=== PATIENT | male | born 1945 | race Caucasian/White ===

== ENCOUNTER → 2017-04-26 14:24 | Outpatient (CLI) | payer MEDICARE, SELFPAY ==
[2017-04-25 13:25] LABS: Absolute Lymphocyte Count 1.16 X10^3/ul (0.83-4.51); Absolute Neutrophil Count 5.2 X10^3/uL (2.0-7.7); Basophil# 0.03 X10^3/uL; Basophil% 0.4 % (0-1); Eosinophil# 0.09 X10^3/uL; Eosinophils% 1.3 % (0-5); Hematocrit 40.8 % (40-54); Hemoglobin 13.8 g/dl (13.0-16.5); Lymphocyte # 1.16 X10^3/ul (4.0); Lymphocyte % 16.9 % (19-41); Mean Corp Hgb Conc 33.8 g/gl (32-36); Mean Corpuscular Hgb 29.9 pg (27.0-32.0); Mean Corpuscular Volume 88.3 fL (80-94); Monocyte# 0.43 X10^3/uL; Monocyte% 6.3 % (0-10); Neutrophil # 5.16 X10^3/uL (2.7-7.7); Platelet Count 203 K/mm3 (150-450); RBC Distribution Width CV 13.2 % (11.6-14.6); Red Blood Count 4.62 M/mm3 (4.6-6.2); White Blood Count 6.9 K/mm3 (4.4-11.0)
[2017-04-25 13:26] LABS: POSITIVE COUNT NO; POSITIVE DIFFERENTIAL NO; POSITIVE MORPHOLOGY NO
[2017-04-25 13:45] LABS: Creatinine, Serum 0.98 mg/dL (0.70-1.30); EST Glomerular Filtration Rate 80 mL/min (>60); Est Glom Filt Rate - Afr Amer 96 mL/min (>60)
--- NOTE | 2017-04-26 14:25 | CT_ITS ---
STUDY: CT PELVIS WITH CONTRAST REASON FOR EXAM: Male, 72 years old. The patient has a history of prostate cancer. This is a radiation treatment planning examination. RADIATION DOSAGE (If Supplied By Facility): CTDIvol = ( 24.61 ) mGy, DLP = ( 887.00 ) mGycm TECHNIQUE: Transaxial imaging of the pelvis was performed with oral contrast. 100 ml of Isovue 300 contrast was administered intravenously. Individualized dose optimization techniques were used for this CT. COMPARISON: Comparison is made with prior study dated November 26, 2016. FINDINGS: Normal urinary bladder. The patient is status post prostatectomy. Metallic radiation seeds are seen within the prostate bed. Normal visualized small intestine. There are multiple colonic diverticula of the sigmoid colon consistent with chronic diverticulosis. There is no pelvic fluid. There is no pelvic lymphadenopathy or mass lesion. There is diffuse atherosclerotic calcification of the pelvic arteries. There is a left inguinal hernia containing fat. There are diffuse degenerative changes of the visualized lumbar spine. CT/Pelvis WITH IV Contrast IMPRESSION: Status post prostatectomy. Metallic radiation seeds are seen within the prostate bed. Electronically Signed: Aries Conklin MD at 10:46 EDT Tel [phone], Service support ,
== END ==
PROVIDERS: Visit Provider Radiology Radiation Oncology
DX: Z01.818 Encounter for other preprocedural examination (principal); C61 Malignant neoplasm of prostate
CPT/HCPCS: 36415; 72193; 82565; 85025; Q9967

== ENCOUNTER → 2017-05-12 09:45 | Outpatient (CLI) | payer MEDICARE, SELFPAY ==
[2017-05-12 12:11] LABS: Absolute Lymphocyte Count 0.68 X10^3/ul (0.83-4.51); Absolute Neutrophil Count 4.4 X10^3/uL (2.0-7.7); Basophil# 0.01 X10^3/uL; Basophil% 0.2 % (0-1); Eosinophil# 0.05 X10^3/uL; Eosinophils% 0.9 % (0-5); Hematocrit 39.8 % (40-54); Hemoglobin 13.5 g/dl (13.0-16.5); Lymphocyte # 0.68 X10^3/ul (4.0); Lymphocyte % 12.1 % (19-41); Mean Corp Hgb Conc 33.9 g/gl (32-36); Mean Corpuscular Volume 88.4 fL (80-94); Mean Platelet Vol. 10.8 fl (6.2-12.0); Monocyte# 0.49 X10^3/uL; Monocyte% 8.7 % (0-10); Neutrophil # 4.39 X10^3/uL (2.7-7.7); Neutrophil % 77.7 % (47-70); Platelet Count 191 K/mm3 (150-450); RBC Distribution Width CV 13.3 % (11.6-14.6); RBC Distribution Width SD 42.1 fl (35.1-43.9); White Blood Count 5.6 K/mm3 (4.4-11.0)
[2017-05-12 12:16] LABS: POSITIVE COUNT NO; POSITIVE DIFFERENTIAL NO; POSITIVE MORPHOLOGY NO
== END ==
PROVIDERS: Visit Provider Radiology Radiation Oncology
DX: C61 Malignant neoplasm of prostate (principal)
CPT/HCPCS: 36415; 85025

== ENCOUNTER → 2017-06-02 09:52 | Outpatient (CLI) | payer MEDICARE, SELFPAY ==
[2017-06-02 12:24] LABS: Absolute Lymphocyte Count 0.41 X10^3/ul (0.83-4.51); Absolute Neutrophil Count 4.9 X10^3/uL (2.0-7.7); Basophil# 0.01 X10^3/uL; Basophil% 0.2 % (0-1); Eosinophil# 0.07 X10^3/uL; Eosinophils% 1.2 % (0-5); Hematocrit 39.1 % (40-54); Hemoglobin 13.3 g/dl (13.0-16.5); Lymphocyte # 0.41 X10^3/ul (4.0); Lymphocyte % 6.9 % (19-41); Mean Corpuscular Hgb 30.4 pg (27.0-32.0); Mean Corpuscular Volume 89.3 fL (80-94); Mean Platelet Vol. 10.1 fl (6.2-12.0); Monocyte# 0.51 X10^3/uL; Monocyte% 8.6 % (0-10); Neutrophil # 4.94 X10^3/uL (2.7-7.7); Neutrophil % 82.8 % (47-70); Platelet Count 182 K/mm3 (150-450); RBC Distribution Width CV 13.9 % (11.6-14.6); RBC Distribution Width SD 44.5 fl (35.1-43.9); Red Blood Count 4.38 M/mm3 (4.6-6.2)
[2017-06-02 12:33] LABS: Differential Indicated SCAN CRITERIA MET; POSITIVE COUNT NO; POSITIVE DIFFERENTIAL YES; POSITIVE MORPHOLOGY NO
[2017-06-02 12:51] LABS: ALB/GLOB Ratio 1.2 RATIO (0.9-2.4); AST(SGOT) 20 U/L (15-37); Alanine Aminotransfer ALT/SGPT 36 U/L (16-61); Albumin, Serum 4.2 g/dL (3.2-5.0); Alkaline Phosphatase 56 U/L (45-117); Anion Gap 8 (5-15); BUN 13 mg/dL (7-18); BUN/Creat Ratio 13.7 RATIO (10-20); Calcium,Total 9.2 mg/dL (8.5-10.1); Chloride 103 mmol/L (98-107); Creatinine, Serum 0.95 mg/dL (0.70-1.30); EST Glomerular Filtration Rate 83 mL/min (>60); Est Glom Filt Rate - Afr Amer 101 mL/min (>60); Globulin 3.5 g/dL (2.2-4.2); Glucose 112 mg/dL (74-106); PSA,Total- Diagnostic < 0.01 ng/mL (0.0-4.0); Potassium 4.6 mmol/L (3.5-5.1); Protein, Total 7.7 g/dL (6.4-8.2); Sodium Level 139 mmol/L (136-145)
== END ==
PROVIDERS: Internal Medicine Medical Oncology; Visit Provider Radiology Radiation Oncology
DX: C61 Malignant neoplasm of prostate (principal)
CPT/HCPCS: 36415; 80053; 84153; 85025

== ENCOUNTER → 2018-05-31 09:21 | Outpatient (CLI) | payer MEDICARE, SELFPAY ==
[2016-11-30 13:50] VITALS: BMI 25.0
[2018-05-31 12:33] LABS: PSA,Total- Diagnostic < 0.01 ng/mL (0.0-4.0)
== END ==
PROVIDERS: Referring Provider Urology; Visit Provider Urology
DX: C61 Malignant neoplasm of prostate (principal)
CPT/HCPCS: 36415; 84153

== ENCOUNTER → 2018-11-28 10:05 | Outpatient (CLI) | payer MEDICARE, SELFPAY ==
[2016-11-30 13:50] VITALS: BMI 25.0
[2018-11-28 12:59] LABS: PSA,Total- Diagnostic < 0.01 ng/mL (0.0-4.0)
== END ==
PROVIDERS: Referring Provider Urology; Visit Provider Urology
DX: C61 Malignant neoplasm of prostate (principal)
CPT/HCPCS: 36415; 84153

== ENCOUNTER → 2019-06-05 12:42 | Outpatient (CLI) | payer MEDICARE, SELFPAY ==
[2019-06-05 15:28] LABS: PSA,Total- Diagnostic < 0.01 ng/mL (0.0-4.0)
== END ==
PROVIDERS: Referring Provider Urology; Visit Provider Urology
DX: C61 Malignant neoplasm of prostate (principal); R97.20 Elevated prostate specific antigen [PSA]
CPT/HCPCS: 36415; 84153

== ENCOUNTER → 2019-10-01 08:28 | Outpatient (CLI) | payer MEDICARE, SELFPAY ==
[2019-10-01 08:21] VITALS: BMI 25.0
--- NOTE | 2019-10-01 08:29 | RAD_ITS ---
STUDY: X-RAY - LUMBAR SPINE REASON FOR EXAM: Male, 74 years old. LOW BACK PAIN TECHNIQUE: 4 view(s) of the lumbar spine were obtained. COMPARISON: None FINDINGS: Normal lumbar lordosis. Mild levoscoliosis. There is a normal alignment of the vertebrae. No subluxation on the flexion or extension views to suggest instability. There is multilevel endplate spondylosis of the lumbar vertebrae. There is multi-level degenerative disc disease with multi-level disc space narrowing. The soft tissue structures are unremarkable. RAD/L/S Spine Min 4 Views IMPRESSION: 1. Mild levoscoliosis with diffuse degenerative disc disease. 2. No instability. Electronically Signed: Gamaliel Mercado MD at 17:22 EDT Tel , Service support ,
--- NOTE | 2019-10-01 09:09 | RAD_ITS ---
STUDY: X-RAY - PELVIS AND LEFT HIP REASON FOR EXAM: Male, 74 years old. LOW BACK AND HIP PAIN TECHNIQUE: 3 views of the pelvis and hip. COMPARISON: None. FINDINGS: There is a non-specific bowel gas pattern. Normal visualized soft tissue structures. Normal bilateral iliac wings, sacroiliac joints and visualized sacrum. Normal bilateral superior and inferior pubic rami. Normal pubic symphysis. Normal bilateral ischial tuberosities. There are osteoarthritic changes of the femoral head with marginal osteophyte formation. Normal acetabulum. There is mild articular joint space narrowing of the hip. RAD/HIP, UNI W/ Pelvis 2-3 Views IMPRESSION: Mild arthrosis Electronically Signed: Gamaliel Mercado MD at 17:18 EDT Tel , Service support ,
== END ==
PROVIDERS: Referring Provider Orthopaedic Surgery; Visit Provider Orthopaedic Surgery
DX: M79.605 Pain in left leg (principal)
CPT/HCPCS: 72110; 73502

== ENCOUNTER → 2020-02-11 09:05 | Outpatient (CLI) | payer MEDICARE, SELFPAY ==
[2019-10-17 09:26] VITALS: BMI 25.0
[2020-02-11 10:51] LABS: PSA,Total- Diagnostic < 0.01 ng/mL (0.0-4.0)
== END ==
PROVIDERS: PCP Family Medicine; Referring Provider Urology; Visit Provider Urology
DX: C61 Malignant neoplasm of prostate (principal)
CPT/HCPCS: 36415; 84153

== ENCOUNTER 2020-04-14 08:42 | Outpatient (RCR) | payer MEDICARE, SELFPAY ==
[2019-10-17 09:26] VITALS: BMI 25.0
[2020-04-14] MEDS: COVID-19 VACC, MRNA(PFIZER)/PF 30 MCG/0.3 ML SYRINGE IM (13:08)
[2020-05-06] MEDS: COVID-19 VACC, MRNA(PFIZER)/PF 30 MCG/0.3 ML SYRINGE IM (12:42)
== END 2020-07-15 23:59 ==
LOC: IMMUN 08:42
PROVIDERS: PCP Family Medicine; Visit Provider Family Medicine
DX: Z23 Encounter for immunization (principal)
CPT/HCPCS: 0001A; 0002A; 91300

== ENCOUNTER → 2020-07-31 14:17 | Outpatient (CLI) | payer MEDICARE, SELFPAY ==
[2019-10-17 09:26] VITALS: BMI 25.0
[2020-07-31 18:05] LABS: PSA,Total- Diagnostic < 0.01 ng/mL (0.0-4.0)
== END ==
PROVIDERS: PCP Family Medicine; Referring Provider Urology; Visit Provider Urology
DX: C61 Malignant neoplasm of prostate (principal)
CPT/HCPCS: 36415; 84153

== ENCOUNTER → 2020-08-12 06:17 | Outpatient (CLI) | payer MEDICARE, SELFPAY ==
[2020-07-31 15:23] VITALS: BMI 26.5
--- NOTE | 2020-08-12 06:24 | ECHOCS_ITS ---
Reason For Study: HTN, ELEVATED CALCIUM SCORE Procedure This was a 2D Doppler, Color Flow transthoracic echocardiogram. The study was technically difficult. Contrast injection was performed. Exam performed in department. Left Ventricle Normal LV size. Left ventricular systolic function is normal. The estimated ejection fraction is 60 %. Diastolic function is indeterminate. No regional wall motion abnormalities noted. Right Ventricle Normal RV size. Normal systolic function. Atria The left atrium is mildly enlarged. Normal right atrium. No doppler evidence for ASD. Mitral Valve There is no mitral annular calcification. Normal mitral valve. Mild (1+) mitral valve insufficiency. Tricuspid Valve Normal tricuspid valve. Mild tricuspid valve insufficiency. Right ventricular systolic pressure estimated to be 34 mmHg. Aortic Valve Trisinus/trileaflet aortic valve. Mild diffuse aortic valve thickening. Pulmonic Valve The pulmonic valve is not well visualized. Great Vessels Normal sized aortic root. Calcified aortic root. Pericardium/Pleural No pericardial effusion. Medication Diluted definity 3ml given slow IV push to enhance endocardial definition. MMode/2D Measurements & Calculations LVIDd: 4.3 cm IVSd: 0.93 cm Ao root diam: 3.7 cm LVIDs: 3.1 cm LVPWd: 1.0 cm RVDd: 3.4 cm FS: 26.9 % LAV(MOD-bp): 76.6 ml LVAd ap4: 35.4 cm2 LVAd ap2: 28.6 cm2 LAV(MOD-bp) Indexed: 38.9 ml/m2 LVLd ap4: 9.2 cm LVLd ap2: 7.8 cm LAV(MOD-sp2): 88.8 ml EDV(MOD-sp4): 109.2 ml EDV(MOD-sp2): 88.5 ml LAV(MOD-sp4): 58.7 ml EDV(sp4-el): 115.0 ml EDV(sp2-el): 89.0 ml LVAs ap4: 23.6 cm2 LVAs ap2: 16.9 cm2 LVLs ap4: 8.0 cm LVLs ap2: 6.8 cm ESV(MOD-sp4): 57.5 ml ESV(MOD-sp2): 35.2 ml ESV(sp4-el): 58.5 ml ESV(sp2-el): 35.3 ml EF(MOD-sp4): 47.3 % EF(MOD-sp2): 60.2 % EF(sp4-el): 49.1 % SV(MOD-sp4): 51.7 ml SV(MOD-sp2): 53.3 ml SV(sp4-el): 56.4 ml LA A4 area: 21.7 cm2 LA dimension(2D): 4.3 cm RA A4 area: 18.1 cm2 Time Measurements MV dec time: 0.37 sec Doppler Measurements & Calculations MV E max pro: 52.5 cm/sec Lat Peak E' Pro: 9.5 cm/sec Med Peak E' Pro: 7.6 cm/sec MV A max pro: 73.8 cm/sec E/E' lat: 5.5 E/E' med: 6.9 MV E/A: 0.71 Ao V2 max: 108.9 cm/sec LV V1 max: 94.7 cm/sec PA V2 max: 94.2 cm/sec Ao max P.7 mmHg LV V1 max P.6 mmHg TR max pro: 278.3 cm/sec TR max P.1 mmHg ECHO/Echo Complete W/ Contrast Interpretation Summary The study was technically difficult. Contrast injection was performed. Left ventricular systolic function is normal. The estimated ejection fraction is 60 %. The left atrium is mildly enlarged. Mild (1+) mitral valve insufficiency. Mild tricuspid valve insufficiency. Mild diffuse aortic valve thickening. Calcified aortic root. Right ventricular systolic pressure estimated to be 34 mmHg. Diastolic function is indeterminate. Ordering Physician: Randall Jordan Referring Physician: CHRISTIANO LYNCH Performed By: Lala Rea, TRICS, RVT
--- NOTE | 2020-08-12 09:03 | STRESSREP_ITS ---
Stress Test Report Date: 08-12-2020 Procedure: Exercise tolerance test/imaging study Indications: Abnormal coronary calcium score; hyperlipidemia; hypertension Consent: Per the patient Procedure: The patient exercised on a Rober protocol for 6 minutes completing Stage II achieving a peak heart rate of 126 bpm (86% predicted maximal heart rate) with a peak blood pressure 182/88 mmHg and a peak MET capacity of 7 METs. The baseline ECG demonstrated sinus bradycardia. The peak exercise ECG demonstrated no obvious ECG changes. There was a rare PAC/PVC during recovery. The functional capacity was considered average. There was no complaint of chest discomfort during exercise or recovery. The examination was discontinued secondary to dyspnea and leg discomfort. Impression: 1. Technically adequate (percent predicted maximal heart rate greater than 85%) exercise tolerance test 2. Peak exercise ECG with no obvious ECG changes 3. There was a rare PAC/PVC during recovery 4. Nuclear images pending Myocardial perfusion imaging study: Technique: The patient was injected with 11.3 mCi of technetium 99m Cardiolite and subsequently rest SPECT Cardiolite nuclear imaging was obtained in the horizontal long, vertical long, and short axis views. The patient exercised on a Rober protocol for 6 minutes completing Stage II achieving a peak heart rate of 126 bpm (86% predicted maximal heart rate) with a peak blood pressure 182/88 mmHg and a peak MET capacity of 7 METs. The patient was injected with 33 point mCi of technetium 99m Cardiolite and subsequently stress SPECT Cardiolite nuclear imaging was obtained in the horizontal long, vertical long, and short axis views. A gated Cardiolite study at peak stress was obtained. Interpretation: Rest and stress SPECT Cardiolite nuclear imaging status post realignment, normalization, and attenuation correction, demonstrates body motion during image acquisition and otherwise relative uniform tracer uptake and myocardial perfusion appearing within normal limits. There is end systolic thickening and brightening. The gated Cardiolite study demonstrates myocardial thickening and inward wall motion. The reported LVEF is 67%. Impression: 1. Rest and stress SPECT Cardiolite nuclear imaging demonstrate body motion during image acquisition and otherwise relative uniform tracer uptake and m yocardial perfusion appearing within normal limits. 2. The gated Cardiolite study reports an LVEF of 67%. This note was generated with [employer] software. It may contain incorrect words, spelling, and punctuation that were not noted in checking the note before signing.
== END ==
PROVIDERS: PCP Family Medicine; Referring Provider Internal Medicine Cardiovascular Disease; Visit Provider Internal Medicine Cardiovascular Disease
DX: R93.1 Abnormal findings on diagnostic imaging of heart and coronary circulation (principal); I10 Essential (primary) hypertension; E78.5 Hyperlipidemia, unspecified; I51.89 Other ill-defined heart diseases
CPT/HCPCS: 78452; 93017; 93306; A9500; Q9957; A4216; C8929; J3490

== ENCOUNTER 2021-02-08 11:06 | Emergency (ER) | payer OTHER, SELFPAY ==
[2021-02-08 11:07] VITALS: BP 165/97; PULSE 51; RESP 16; TEMP 35.8; O2SAT 97; BMI 25.9
--- NOTE | 2021-02-08 11:23 | VDLE_ITS ---
Reason For Study: Swelling RIGHT LEFT GSV is normal. CFV is compressible, spontaneous, phasic, CFV is compressible, spontaneous, phasic, competent, and demonstrates normal competent and demonstrates normal augmentation. augmentation. FV is compressible, spontaneous, phasic, competent and demonstrates normal augmentation. POP V is compressible, spontaneous, phasic, competent and demonstrates normal augmentation. T/P Trunk is compressible. PTV is compressible. RT PerV is compressible. Procedure This is a venous duplex using B-mode, color flow and spectral Doppler. Exam performed portable in ED. A preliminary report was called and/or faxed to ED RN. VL/Venous Duplex US, Unilateral Interpretation Summary Deep veins of the right lower extremity are patent and compressible segmentally . There is no evidence of right lower extremity deep vein thrombosis. Valvular competence kristina ears intact within the proximal deep venous system on the right . The right great saphenous vein a ppears patent and compressible segmentally. Ordering Physician: Rex Small Referring Physician: Anitra Webb Performed By: Parvin Berger, SUNI, RVT
[2021-02-08 13:06] VITALS: RESP 16; O2SAT 99
--- NOTE | 2021-02-08 14:03 | ED.VIS.LOWEX ---
HPI History of Present Illness HPI Narrative: Patient presents with pain and swelling to his right knee that has been constant for the past 2 weeks. Patient states it is gradually getting worse. Patient describes his pain as dull. Patient states it is worse whenever he pushes on his knee. Patient admits to a increased swelling over the anterior aspect of his right knee. Patient also admits to some swelling in his right calf. Patient denies any paresthesias or weakness. Patient denies any trauma or injury. Patient states he was redoing his tile floors but he was wearing kneepads. Patient denies any redness or warmth. Chief Complaint: Lower Extremity Injury Onset/Context/Timing Onset: Weeks (2) Context: Gradual Onset Timing: Continuous Quality of Pain: Dull Location: Anterior right knee Worsened by: Palpation Relieved by: Nothing Associated Symptoms Associated Symptoms: Negative for Parasthesia, Weakness and Loss of Funtion PFSH [facility] Medical History Arthritis Elevated coronary artery calcium score Elevated PSA Essential (primary) hypertension GERD (gastroesophageal reflux disease) h/o radiation History of prostate cancer Hyperlipidemia Hypertension Mixed hyperlipidemia PTSD (post-traumatic stress disorder) Trigger finger Home Medications cholecalciferol (vitamin D3) 2,000 unit PO DAILY 03/11/16 [History Last Taken Unknown] potassium chloride 10 meq PO DAILY 03/11/16 [History Last Taken Unknown] hydrochlorothiazide 25 mg tablet 12.5 mg PO DAILY tab 10/01/19 [History Last Taken Unknown] omeprazole 20 mg capsule,delayed release 20 mg PO DAILY 07/22/20 [History Last Taken Unknown] aspirin 81 mg tablet,delayed release 81 mg PO DAILY #1 tab 07/31/20 [Rx Last Taken Unknown] atorvastatin 40 mg tablet 40 mg PO QHS 07/31/20 [History Last Taken Unknown] metoprolol tartrate 25 mg tablet 25 mg PO BID 07/31/20 [History Last Taken Unknown] prazosin 1 mg capsule 2 mg PO QHS cap 07/31/20 [History Last Taken Unknown] sertraline 100 mg tablet 200 mg PO DAILY tab 07/31/20 [History Last Taken Unknown] Allergy/AdvReac Type Severity Reaction Status Date / Time poison piedad extract Allergy Hives Verified 02/08/21 11:08 Family History Father Diabetes Hypertension Father Emphysema Mother Hypertension Breast cancer Brother No problems noted. Brother Cancer CVA (cerebral vascular accident) Brother Cancer Surgical History H/O prostatectomy H/O: vasectomy History of carpal tunnel release History of cataract surgery Social History household members: significant other Smoking Status: Never smoker alcohol intake: never caffeine: Yes what type of physical activity do you participate in: none do you feel safe at home: Yes ROS ROS ED Constitutional Constitutional ED: Denies chills or fever(s) Eyes Eyes: Denies blurry vision or change in vision ENT ENT ED: Denies rhinorrhea or sore throat Cardiovascular Cardiovascular: Denies chest pain or palpitations Respiratory/Chest Respiratory/Chest: Denies cough or dyspnea Gastrointestinal Gastrointestinal: Denies nausea or vomiting Genitourinary Genitourinary ED: Denies dysuria or hematuria Musculoskeletal Musculoskeletal: Denies back pain or neck pain Integumentary Denies abscess or rash Neurologic Neurologic: Denies headache(s) or weakness Allergic/Immunologic Allergic/Immunologic ED: Denies mouth swelling or urticaria EXAM Physical Exam Const Vital Signs: 02/08/21 11:07 02/08/21 13:06 Temperature 96.4 F L Temperature Source Temporal Pulse Rate 51 L Respiratory Rate 16 16 Blood Pressure 165/97 H Blood Pressure Mean 119 Pulse Ox 97 99 Oxygen Delivery Method Room Air Positive well nourished and well developed General Appearance ED: well developed HEENT Reports moist mucous membranes Neck full ROM Extremity Extremity Narrative: There is tenderness and an effusion over the anterior aspect of the right knee. There is no joint effusion. There is good range of motion of the right knee. There is no laxity appreciated. Varus and valgus stress tests were negative. Tate's test was negative. Pedal pulses are equal bilaterally. Sensation was intact to light touch in all digits. Capillary refill was less than 2 seconds in all digits. There is some mild calf edema. There is no calf tenderness. Neuro oriented x3, CN's II-XII intact bilaterally, moves all extremities and no sensory deficits noted Sensorium / Orientation: alert Motor Exam: strength 5/5 throughout Psych mental status grossly normal MDM MDM MDM Narrative Medical decision making narrative: Venous duplex of the right lower extremity was obtained. There is no evidence of DVT. Patient was advised that this is most likely prepatellar bursitis. Patient was instructed to ice and elevate the right knee. Patient was instructed to follow-up with his primary care physician in 5 to 7 days. Patient was given a prescription for Naprosyn. Patient understood and was agreeable with the plan. All questions were answered. Discharge Plan Triage Chief Complaint: Lower Extremity Injury ED Provider: Rex Small Dx/Rx/DC Orders Clinical Impression: Bursitis, prepatellar, right Instructions: ED Bursitis Prescriptions: No Action prazosin 1 mg capsule 2 mg PO QHS RF: 0 sertraline 100 mg tablet 200 mg PO DAILY RF: 0 atorvastatin 40 mg tablet 40 mg PO QHS RF: 0 metoprolol tartrate 25 mg tablet 25 mg PO BID RF: 0 aspirin 81 mg tablet,delayed release (DR/EC) 81 mg PO DAILY Qty: 1 RF: 0 potassium chloride 10 MEQ tablet 10 meq PO DAILY RF: 0 cholecalciferol (vitamin D3) 2,000 UNIT capsule 2,000 unit PO DAILY RF: 0 hydrochlorothiazide 25 mg tablet 12.5 mg PO DAILY RF: 0 omeprazole 20 mg capsule,delayed release(DR/EC) 20 mg PO DAILY RF: 0 Primary Care Provider: Anitra Webb Referrals: Anitra Webb DO [Primary Care Provider] - 3-5 Days Disposition Disposition: Home, Self Care
--- NOTE | 2021-02-08 14:06 | ED.RN ---
PT NOT IN ROOM. NOT FOUND IN DEPARTMENT
== END 2021-02-08 14:12 | disposition home or self-care (01) ==
PROVIDERS: Emergency Provider Emergency Medicine; PCP Family Medicine; Visit Provider Emergency Medicine
DX: M71.561 Other bursitis, not elsewhere classified, right knee (principal); M79.89 Other specified soft tissue disorders; I10 Essential (primary) hypertension; E78.2 Mixed hyperlipidemia; K21.9 Gastro-esophageal reflux disease without esophagitis; M19.90 Unspecified osteoarthritis, unspecified site; F43.10 Post-traumatic stress disorder, unspecified; Z79.82 Long term (current) use of aspirin; Z79.899 Other long term (current) drug therapy
CPT/HCPCS: 93971; 99282

== ENCOUNTER → 2021-07-15 | Outpatient (CLI) | payer OTHER, SELFPAY ==
[2021-07-15 13:20] LABS: PSA,Total- Diagnostic < 0.01 ng/mL (0.0-4.0)
== END | disposition home or self-care (01) ==
LOC: MTLAB 11:12
PROVIDERS: PCP Family Medicine; Referring Provider Urology; Visit Provider Urology
DX: C61 Malignant neoplasm of prostate (principal)
CPT/HCPCS: 36415; 84153

== ENCOUNTER 2024-11-21 10:29 | Emergency (ER) | payer OTHER, SELFPAY ==
[2024-11-21 10:31] VITALS: BP 156/99; PULSE 84; RESP 18; TEMP 36.6; O2SAT 100; BMI 25.8
--- NOTE | 2024-11-21 10:57 | EKG12_ITS ---
Test Reason : Blood Pressure : */* mmHG Vent. Rate : 79 BPM Atrial Rate : * BPM P-R Int : * ms QRS Dur : 84 ms QT Int : 370 ms P-R-T Axes : * -20 7 degrees QTcB Int : 424 ms Atrial fibrillation Abnormal ECG Confirmed by ITZEL GUERRERO, DANIELLE ([id number]), sports editor CASSANDRA PETERSEN ([id number]) on 11/22/2024 10:00:30 AM Referred By: Confirmed By: DANIELLE ROBBINS MD
[2024-11-21] MEDS: 0.9% Normal Saline (1000mL) 1,000 ML 999 ML IV (11:07)
--- NOTE | 2024-11-21 11:08 | ED.VIS.BACK ---
HPI History of Present Illness Chief Complaint: Back Narrative Narrative: Chief complaint and HPI: 79-year-old male with past medical history of GERD, HLD, HTN, history of prostate cancer presents for evaluation of midthoracic back pain. Patient states this morning he woke up and developed right shoulder pain. He states he felt a fullness in which he took Gas-X. States he then had a bowel movement without difficulty. Patient states his left shoulder pain however did not improve and moved to the mid thoracic back between the shoulder blades. Worse when he takes a deep breath then. Took Aleve prior to arrival. Denies any fever, chills, chest pain, abdominal pain, nausea, vomiting, numbness/tingling. Review of systems: See HPI Medications: As listed on the chart Allergies: As listed on the chart PFSH: Per chart Vital signs: As listed on the chart. Reviewed. Physical exam: Gen: A&O x3, NAD Head: Normocephalic, atraumatic Eyes: No sclera icterus, conjunctiva clear, PEERl, EOMI ENT: Moist mucous membranes Neck: Trachea midline, No JVD, full range of motion, nontender CV: RRR, no murmurs, no peripheral edema, radial pulses +2 bilaterally Resp: Lungs CTA BL, no w/r/c GI: Abd soft, non-distended, non-tender, no r/r/g Musc: Full ROM, no deformity, no midline spinal tenderness, no bony step-offs, thoracic back pain is not reproducible with palpation Skin: Warm, dry Neuro: Alert, oriented, grossly intact, sensation intact Psych: Cooperative, appropriate mood and affect [facility] Medical History Elevated coronary artery calcium score GERD (gastroesophageal reflux disease) Mixed hyperlipidemia Essential (primary) hypertension Trigger finger h/o radiation PTSD (post-traumatic stress disorder) Hypertension Hyperlipidemia Arthritis Elevated PSA History of prostate cancer Home Medications ?Medication ?Instructions ?Recorded ?Last Taken ?Type cholecalciferol (vitamin D3) 50 2,000 unit PO DAILY 03/11/16 Unknown History mcg (2,000 unit) capsule potassium chloride 10 mEq 10 meq PO DAILY 03/11/16 Unknown History tablet,extended release(part/cryst) hydrochlorothiazide 25 mg tablet 12.5 mg PO DAILY 10/01/19 Unknown History omeprazole 20 mg capsule,delayed 20 mg PO DAILY 07/22/20 Unknown History release atorvastatin 40 mg tablet 40 mg PO QHS 07/31/20 Unknown History metoprolol tartrate 25 mg tablet 25 mg PO BID 07/31/20 Unknown History prazosin 1 mg capsule 2 mg PO QHS 07/31/20 Unknown History simvastatin 5 mg tablet 5 mg PO QDAY 05/25/24 Unknown History apixaban 5 mg tablet (Eliquis) 5 mg PO BID 30 days #60 tabs 11/21/24 Unknown Rx Allergy/AdvReac Type Severity Reaction Status Date / Time poison piedad extract Allergy Hives Verified 11/21/24 10:34 Family History Father Diabetes Hypertension Father Emphysema Mother Hypertension Breast cancer Brother No problems noted. Brother Cancer CVA (cerebral vascular accident) Brother Cancer Surgical History History of cataract surgery History of carpal tunnel release H/O: vasectomy H/O prostatectomy Social History household members: significant other Smoking Status: Never smoker alcohol intake: never caffeine: Yes what type of physical activity do you participate in: none do you feel safe at home: Yes EXAM Physical Exam Const Vital Signs: 11/21/24 10:31 11/21/24 11:30 11/21/24 12:00 Temperature 97.9 F Temperature Source Oral Pulse Rate 84 90 89 Respiratory Rate 18 16 16 Blood Pressure 156/99 H 113/89 H 133/113 H Blood Pressure Mean 118 97 119 Pulse Ox 100 99 99 Oxygen Delivery Method Room Air 11/21/24 13:00 11/21/24 14:00 Temperature Temperature Source Pulse Rate 83 82 Respiratory Rate 16 22 H Blood Pressure 131/97 H 137/110 H Blood Pressure Mean 108 119 Pulse Ox 100 Oxygen Delivery Method MDM MDM MDM Narrative Medical decision making narrative: 79-year-old male with past medical history of GERD, HLD, HTN, history of prostate cancer presents for evaluation of midthoracic back pain. See HPI. On presentation, vitals are stable other than mild hypertension. Differential diagnosis includes but is not limited to arrhythmia, ACS, dissection, PE, electrolyte abnormality, thyroid disease, myofascial spasm. NS bolus, Zofran, morphine ordered for symptoms. EKG was personally reviewed interpreted by me, ED physician. Atrial fibrillation with a heart rate of 79. On chart review patient has no history of atrial fibrillation which he and his also confirmed. Rate is controlled. Patient was taken immediately to CT to rule out aortic dissection and PE. I personally reviewed the imaging, no aortic dissection or obvious PE on my exam. Patient prescribed aspirin. CBC with mild leukocytosis 11.4. No anemia. Coagulation panel unremarkable. BMP unremarkable. Magnesium level unremarkable. BNP unremarkable. TSH unremarkable. Sciatica CT of the chest shows mild aortic atherosclerosis with severe coronary artery disease. Cardiac enlargement. No PE. No dissection. Subpleural nodule superior segment right lower lobe measures up to 15 mm. Recommend follow-up CT in 3 months. Reevaluation, patient still endorsing back pain. Worse when he moves. May be a myofascial spasm. Will give Valium as a muscle relaxer. Troponin unremarkable x 2. On reevaluation, patient states his back pain has improved with the Valium. Back pain may be secondary to myofascial spasm however cannot rule out symptomatic atrial fibrillation. Patient and family were updated of all the results. I recommend admission for new onset atrial fibrillation workup. The patient declined admission and states that he would like to discharge home and follow-up outpatient with cardiology and his primary care physician. I did personally explain to him as well as his family that choosing to do so may result in permanent bodily harm. I discussed at length that without further evaluation or monitoring there may be for unforeseen circumstances. Atrial fibrillation can increase strokes. Patient is alert and oriented and can make his own decision. He states that he is aware of the serious risks as explained but continues to want to discharge home and follow-up outpatient. Given his choice, will prescribe Eliquis. First dose given here. I did reach out to cardiology, Dr. Bucio. Given patient is already on metoprolol no changes in medication given rate is controlled. Recommended outpatient echocardiogram and follow-up in their office. Patient and family updated of all results and the plan. They confirmed understanding. Patient discharged home. Impression: 1. Atrial fibrillation, new diagnosis 2. Thoracic back pain Lab Data Labs: Laboratory Results - last 24 hr 11/21/24 11/21/24 11:00 13:00 WBC 11.4 H RBC 4.94 Hgb 15.4 Hct 44.7 MCV 90.5 MCH 31.2 MCHC 34.5 RDW Std Deviation 44.7 H RDW Coeff of Anuj 13.5 Plt Count 154 MPV 10.6 Immature Gran % (Auto) 0.300 Neut % (Auto) 88.0 H Lymph % (Auto) 4.8 L [place] % (Auto) 6.4 Eos % (Auto) 0.2 Baso % (Auto) 0.3 Absolute Neuts (auto) 10.1 H Absolute Lymphs (auto) 0.55 L Nucleated RBC % 0 PT 14.3 INR 1.1 APTT 27.6 Sodium 139 Potassium 3.9 Chloride 103 Carbon Dioxide 27.1 Anion Gap 8 BUN 12 Creatinine 0.86 Estim Creat Clear Calc 70.79 Est GFR (MDRD) Non-Af 89 BUN/Creatinine Ratio 13.9 Glucose 121 H Calcium 9.3 Magnesium 1.6 Troponin T High Sens 12 Troponin T Hi Sens 2 Hr 10 NT pro BNP II 1123 TSH 1.700 Radiography Diagnostic Testing: Clinical Impression(s) from Imaging Studies Chest CTA 11/21/24 11:25 IMPRESSION: 1. No acute aortic syndrome. Mild aortic atherosclerosis. Severe coronary artery disease. Cardiac enlargement. 2. No evidence of acute or chronic pulmonary embolus. Mild limitation of the distal segmental and subsegmental vessels of the lower lobes. 3. Subpleural nodule superior segment right lower lobe measures up to 15 mm. ACR Fleischner Society recommendations (MacMahon, et al. Radiology 2017; 284(1): 228-43) suggest the following: For patients with high or low risk of lung cancer, follow-up chest CT at 3 months. If stable, additional follow-up chest CT at 18 to 24 months. Alternatively (or additionally) PET/CT or tissue sampling could be performed. Reading Location: [id number] Discharge Plan Triage Chief Complaint: Back ED Provider: Seth Lancaster Dx/Rx/DC Orders Clinical Impression: Atrial fibrillation, Thoracic back pain Instructions: Anticoagulants, AFib Dc Prescriptions: New Eliquis 5 mg tablet 5 mg PO BID 30 Days Qty: 60 0RF No Action prazosin 1 mg capsule 2 mg PO QHS atorvastatin 40 mg tablet 40 mg PO QHS metoprolol tartrate 25 mg tablet 25 mg PO BID simvastatin 5 mg tablet 5 mg PO QDAY potassium chloride 10 MEQ tablet 10 meq PO DAILY cholecalciferol (vitamin D3) 2,000 UNIT capsule 2,000 unit PO DAILY hydrochlorothiazide 25 mg tablet 12.5 mg PO DAILY omeprazole 20 mg capsule,delayed release(DR/EC) 20 mg PO DAILY Other Ambulatory Orders: Echo Complete (Routine) Facility: [facility] - Location: [facility] Referrals: Jasper Bucio MD [Med Staff - Active Staff, Cardiology] - 3-5 Days [facility],[place] [Primary Care Provider, None] - 3-5 Days Activity Restrictions/Additional Instructions: Follow-up with your primary care physician as well as cardiology. Continue your home medications. You received your first dose of Eliquis here in the emergency department. Take your next dose this evening. Eliquis is a blood thinner and therefore can cause spontaneous bleeding and increased bruising. If you hit your head you need to be seen in the emergency department to rule out head bleed. Return back to ED if symptoms change or worsen. Tylenol as needed for back pain. You need to have your outpatient echocardiogram performed. Print Language: Greenlandic Disposition Disposition: Home, Self Care
[2024-11-21 11:19] LABS: Hematocrit 44.7 % (40-54); Hemoglobin 15.4 g/dL (13.0-16.5); Immature Granulocytes Count 0.040 X10^3/uL (0.0-0.0); Mean Corp Hgb Conc 34.5 g/dL (32-36); Mean Corpuscular Volume 90.5 fL (80-94); Mean Platelet Vol. 10.6 fl (6.2-12.0); NRBC Flagged by Analyzer 0 % (0-5); POSITIVE DIFFERENTIAL YES; Platelet Count 154 K/mm3 (150-450); RBC Distribution Width CV 13.5 % (11.6-14.6); RBC Distribution Width SD 44.7 fl (35.1-43.9); Red Blood Count 4.94 M/mm3 (4.6-6.2); White Blood Count 11.4 K/mm3 (4.4-11.0)
--- NOTE | 2024-11-21 11:25 | CT_ITS ---
PROCEDURE: CTA CHEST W/WO CONTRAST 11/21/2024 REASON FOR EXAM: DISSECTION/PE TECHNIQUE: Procedure Code: [id number] Modality: CT Procedure: CTA CHEST W/WO CONTRAST Multiplanar Sagittal and Coronal images were obtained. 3D post processing was performed CONTRAST: Isovue 370 VOLUME: 100 mL One or more dose reduction techniques were used (e.g., Automated exposure control, adjustment of the mA and/or kV according to patient size, use of iterative reconstruction technique). RADIATION DOSE SUMMARY: CTDlvol: 27 mGy DLP: 387 mGycm COMPARISON: None # of known CTs in the past 12 months: 0 # of known Cardiac Nuclear Medicine Studies in the past 12 months: 0 FINDINGS: Thoracic Aorta: Mild atherosclerotic plaque without aneurysm. No dissection. Heart: Mild cardiac enlargement. No pericardial effusion. Severe coronary artery atherosclerosis. Pulmonary Vessels: The timing and quality of the contrast bolus is diagnostic. There is no evidence of acute or chronic pulmonary embolus except for the distal segmental and subsegmental vessels as there is respiratory motion artifact there. Hardware: None Lymph nodes: None appear enlarged. Lungs and Airways: Respiratory motion artifact. Subsegmental atelectasis dependently in the lingula and both lower lobes. Pleura: Subpleural nodule at the level of the superior segment on the right is 1.5 x 0.8 x 1.4 cm. No pleural effusion or pneumothorax. Upper Abdomen: Unremarkable Bones: Degenerative changes of the thoracic spine. CT/CTA Chest W/WO Contrast IMPRESSION: 1. No acute aortic syndrome. Mild aortic atherosclerosis. Severe coronary ar chandan disease. Cardiac enlargement. 2. No evidence of acute or chronic pulmonary embolus. Mild limitation of the distal segmental and subsegmental vessels of the lower lobes. 3. Subpleural nodule superior segment right lower lobe measures up to 15 mm. ACR Fleischner Society recommendations (MacMahon, et al. Radiology 2017; 284(1): 228-43) suggest the following: For patients with high or low risk of lung cancer, follow-up chest CT at 3 months. If stable, additional follow-up chest CT at 18 to 24 months. Al ternatively (or additionally) PET/CT or tissue sampling could be performed. Reading Location: [id number]
[2024-11-21 11:28] LABS: Prothrombin Time (Protime)PT. 14.3 SECONDS (11.7-14.9)
[2024-11-21 11:29] LABS: Partial Thromboplast Time 27.6 Seconds (24.1-36.2)
[2024-11-21 11:30] VITALS: BP 113/89; PULSE 90; RESP 16; O2SAT 99
[2024-11-21 11:52] LABS: Anion Gap 8 (5-15); BUN 12 mg/dL (4-19); BUN/Creat Ratio 13.9 RATIO (10-20); Calcium,Total 9.3 mg/dL (7.6-11.0); Carbon Dioxide 27.1 mmol/L (21.0-32.0); Chloride 103 mmol/L (98-108); Estimated Creatinine Clearance 70.79 ml/min (50-250); Glucose 121 mg/dL (70-99); Magnesium 1.6 mg/dL (1.5-2.2); Potassium 3.9 mmol/L (3.3-5.1); Pro- Brain NATRIURETIC PEPTIDE 1123 pg/mL (<=1800); Troponin T High Sensitivity 12 ng/L (<=22)
[2024-11-21 12:00] VITALS: BP 133/113; PULSE 89; RESP 16; O2SAT 99
[2024-11-21 13:00] VITALS: BP 131/97; PULSE 83; RESP 16; O2SAT 100
[2024-11-21 13:39] LABS: Troponin T High Sens 2 HR 10 ng/L (<=22)
[2024-11-21 14:00] VITALS: BP 137/110; PULSE 82; RESP 22
[2024-11-21] MEDS: APIXABAN 5 MG TABLET PO (14:18)
[2024-11-21 14:21] VITALS: BP 137/110; PULSE 82; RESP 22; TEMP 36.7; O2SAT 100
== END 2024-11-21 14:22 | disposition home or self-care (01) ==
PROVIDERS: Emergency Provider Surgery; Visit Provider Surgery
DX: I48.91 Unspecified atrial fibrillation (principal); M54.6 Pain in thoracic spine; I25.10 Atherosclerotic heart disease of native coronary artery without angina pectoris
CPT/HCPCS: 71275; 80048; 83735; 83880; 84443; 84484; 85025; 85610; 85730; 93005; 96361; 96374; 96375; 99284; Q9967; A4216; J2405

== ENCOUNTER 2024-11-26 10:57 | Emergency (ER) | payer OTHER, SELFPAY ==
[2024-11-26 10:58] VITALS: BP 146/99; PULSE 69; RESP 18; TEMP 36.6; O2SAT 100; BMI 25.4
--- NOTE | 2024-11-26 11:25 | EKG12_ITS ---
Test Reason : GENERAL Blood Pressure : */* mmHG Vent. Rate : 66 BPM Atrial Rate : * BPM P-R Int : * ms QRS Dur : 84 ms QT Int : 400 ms P-R-T Axes : * -16 11 degrees QTcB Int : 419 ms Atrial fibrillation Abnormal ECG Confirmed by Paul Dasilva ([id number]), newspaper photo editor HEIDY DINH ([id number]) on 11/27/2024 11:11:56 AM Referred By: Confirmed By: Paul Dasilva
--- NOTE | 2024-11-26 11:26 | EDS_ITS ---
HPI History of Present Illness Chief Complaint: Confusion Informant: patient and spouse/S.O. Narrative Narrative: Patient is a 79-year-old male with a history of AFib presenting with fatigue, lethargy, disorientation, and slurred speech. Patient is accompanied by his who is supplementing history. - Symptoms began 2 days ago. - Reports feeling real tired, very lethargic, and a little confused at times. - Describes feeling disoriented and having difficulty with tasks he usually performs around the house. - notes slurred speech and slow movements, stating, I can't understand everything he's saying. - Denies any numbness, weakness, changes in vision, lightheadedness, chest discomfort, dyspnea, palpitations, emesis, diarrhea, or hematochezia. - Concerns began after starting Eliquis for newly diagnosed AFib; no other new medications. - Long-standing medications include simvastatin, metoprolol, hydrochlorothiazide, vitamin D, omeprazole, and potassium supplements. No changes in these lately. - No recent changes in metoprolol dosage; has been on it for years. - Scheduled to see a dermatology physician assistant on the for further evaluation. [facility] Medical History Elevated coronary artery calcium score GERD (gastroesophageal reflux disease) Mixed hyperlipidemia Essential (primary) hypertension Trigger finger h/o radiation PTSD (post-traumatic stress disorder) Hypertension Hyperlipidemia Arthritis Elevated PSA History of prostate cancer Home Medications ?Medication ?Instructions ?Recorded ?Last Taken ?Type cholecalciferol (vitamin D3) 50 2,000 unit PO DAILY 11/26/24 History mcg (2,000 unit) capsule potassium chloride 10 mEq 10 meq PO DAILY 03/11/16 History tablet,extended release(part/cryst) hydrochlorothiazide 25 mg tablet 12.5 mg PO DAILY 09/08 05/27 Unknown History omeprazole 20 mg capsule,delayed 20 mg PO DAILY 11/26/24 History release atorvastatin 40 mg tablet 40 mg PO QHS 07/31/20 History metoprolol tartrate 25 mg tablet 25 mg PO BID 07/31/20 11/26/24 History apixaban 5 mg tablet (Eliquis) 5 mg PO BID heart 30 da ys #60 tabs 11/21/24 11/26/24 Rx Allergy/AdvReac Type Severity Reaction Status Date / Time poison piedad extract Allergy Hives Verified 11/26/24 10:58 Family History Father Diabetes Hypertension Father Emphysema Mother Hypertension Breast cancer Brother No problems noted. Brother Cancer CVA (cerebral vascular accident) Brother Cancer Surgical History History of cataract surgery History of carpal tunnel release H/O: vasectomy H/O prostatectomy Social History household members: significant other Smoking Status: Never smoker alcohol intake: never caffeine: Yes what type of physical activity do you participate in: none do you feel safe at home: Yes ROS ROS ED Constitutional Constitutional ED: Reports fatigue and weakness; Denies chills or fever(s) Eyes Eyes: Denies change in vision or diplopia ENT ENT ED: Denies rhinorrhea or sore throat Cardiovascular Cardiovascular: Denies chest pain or palpitations Respiratory/Chest Respiratory/Chest: Denies cough or dyspnea Gastrointestinal Gastrointestinal: Denies abdominal pain, diarrhea, nausea or vomiting Genitourinary Genitourinary ED: Denies dysuria or hematuria Musculoskeletal Musculoskeletal: Denies back pain or neck pain Integumentary Denies abscess or rash Neurologic Neurologic: Reports as per HPI, abnormal speech and confusion; Denies headache(s), paresthesias or weakness Psychiatric Psychiatric: Denies anxiety or suicidal thoughts EXAM Physical Exam Const Vital Signs: 11/26/24 10:58 11/26/24 12:00 11/26/24 13:00 Temperature 97.8 F Temperature Source Oral Pulse Rate 69 66 68 Respiratory Rate 18 18 16 Blood Pressure 146/99 H 138/92 H 134/88 H Blood Pressure Mean 114 107 103 Pulse Ox 100 98 98 Oxygen Delivery Method Room Air 11/26/24 14:00 Temperature Temperature Source Pulse Rate 73 Respiratory Rate 19 H Blood Pressure 138/92 H Blood Pressure Mean 107 Pulse Ox 99 Oxygen Delivery Method Positive well nourished and well developed General Appearance ED: well developed and NAD HEENT Reports moist mucous membranes normocephalic and atraumatic Eyes PERRL and EOMs intact bilaterally Neck full ROM and supple Resp normal respiratory effort and clear to auscultation bilaterally Cardio regular rate, regular rhythm and no murmurs GI non-tender and non-distended Auscultation: normoactive bowel sounds Palpation: soft Back/Spine no CVA tenderness General Back: other FROM Extremity normal to inspection General Extremety ED: Negative for edema, pulses abnormal or tenderness General Extremity: Negative for edema or pulses abnormal Neuro oriented x3, CN's II-XII intact bilaterally and no sensory deficits noted Neuro Narrative: NIHSS 0. Normal speech at this time, patient and family in agreement. No aphasia. Normal [id number] and [id number] bilaterally. Sensorium / Orientation: awake and alert Motor Exam: strength 5/5 throughout Skin no rashes or lesions noted and no wounds MDM MDM MDM Narrative Medical decision making narrative: Considering central nervous system causes, we obtained a CT of the head. My interpretation is unremarkable, and radiology agrees. Given his vague, generalized symptoms, we also performed a cardiac, infectious, and metabolic workup. All results are essentially normal, except that he is in atrial fibrillation, which coincides with the onset of his symptoms. As I discussed with him, because his blood counts are normal with a hemoglobin of 15.6, I suspect Eliquis is not primarily causing his symptoms. He wondered if he should reduce the dose, but I advised him not to. He should continue taking 5 mg twice a day as prescribed. We also reviewed his chest X-ray, which on my interpretation shows no pneumonia. Radiology was in agreement. Sequential troponin measurements are normal. His EKG is normal except for atrial fibrillation, with no signs of acute injury pattern, and he remained rate-controlled in the emergency department. He is on metoprolol, though the dose does not appear to have changed, and he is on no new AV fox blockers. It is possible the atrial fibrillation itself could be causing his fatigue. However, given his episode of dysarthria, we discussed other possibilities, including a TIA. He understands that if it was a TIA, it could be a warning sign before a more significant stroke, and hospitalization might be advisable. However, he prefers to go home and follow up as an outpatient. He has an upcoming appointment with his dermatology physician assistant. We also conducted a urinalysis, which is negative for infection and essentially normal. Since his speech has been normal throughout his ED stay and his vital signs?including blood pressure?have been essentially normal, I am comfortable discharging him. He has been instructed to return as soon as possible if his symptoms recur or if other issues arise. Otherwise, following up with his dermatology physician assistant is recommended. He and his are comfortable with this plan. Lab Data Attestation: I reviewed the patient's lab results. Labs: Laboratory Results - last 24 hr 11/26/24 11/26/24 11/26/24 11:13 11:59 13:06 WBC 7.1 RBC 5.07 Hgb 15.6 Hct 45.0 MCV 88.8 MCH 30.8 MCHC 34.7 RDW Std Deviation 42.4 RDW Coeff of Anuj 13.1 Plt Count 181 MPV 10.6 Immature Gran % (Auto) 0.300 Neut % (Auto) 85.4 H Lymph % (Auto) 7.9 L [place] % (Auto) 5.1 Eos % (Auto) 1.0 Baso % (Auto) 0.3 Absolute Neuts (auto) 6.0 Absolute Lymphs (auto) 0.56 L Nucleated RBC % 0 Sodium 138 Potassium 4.0 Chloride 103 Carbon Dioxide 22.9 Anion Gap 11 BUN 13 Creatinine 0.87 Estim Creat Clear Calc 69.98 Est GFR (MDRD) Non-Af 88 BUN/Creatinine Ratio 15.0 Glucose 109 H Calcium 9.5 Total Bilirubin 0.98 AST 25 ALT 27 Alkaline Phosphatase 83 Troponin T High Sens 10 D Troponin T Hi Sens 2 Hr 11 Total Protein 7.3 Albumin 4.2 Globulin 3.1 Albumin/Globulin Ratio 1.4 Urine Color Yellow Urine Clarity Clear Urine pH 7.0 Ur Specific [place] 1.010 Urine Protein Negative Urine Glucose (UA) Normal Urine Ketones Negative Urine Occult Blood Negative Urine Nitrite Negative Urine Bilirubin Negative Urine Urobilinogen Normal Ur Leukocyte Esterase Negative Urine RBC 0 SEEN Urine WBC 0 SEEN Ur Squamous Epith Cells 0 SEEN Urine Bacteria 0 SEEN Urine Mucus RARE Radiography Diagnostic Testing: Clinical Impression(s) from Imaging Studies Brain CT 11/26/24 11:42 IMPRESSION: No acute intracranial pathology. Reading Location: [facility] Chest X-Ray 11/26/24 11:45 IMPRESSION: Examination limited by hypoinflation, as well as patient motion of the lateral views. No acute pneumonic process is appreciated. No evidence of pulmonary edema. No pleural effusion or pneumothorax is seen. The cardiomediastinal silhouette is stable, without evidence of cardiomegaly. [id number] degenerative changes of the visualized spine are also seen. No acute osseous change is noted. Reading Location: [address] Rhythm Strip Rhythm Strip: A-fib Rate: 75 Ectopy: None EKG Initial EKG: Attestation: I personally reviewed and interpreted this EKG as follows: Interpretation: No Acute Injury Pattern and Atrial Fibrillation (60's) Discharge Plan Triage Chief Complaint: Confusion ED Provider: Bernardino Love Dx/Rx/DC Orders Clinical Impression: Atrial fibrillation, persistent, Fatigue, Dysarthria, Transient disorientation Instructions: AFib Dc Prescriptions: No Action atorvastatin 40 mg tablet 40 mg PO QHS metoprolol tartrate 25 mg tablet 25 mg PO BID potassium chloride 10 MEQ tablet 10 meq PO DAILY cholecalciferol (vitamin D3) 2,000 UNIT capsule 2,000 unit PO DAILY Patient Comments: pt states he takes 3 capsules hydrochlorothiazide 25 mg tablet 12.5 mg PO DAILY Eliquis 5 mg tablet 5 mg PO BID 30 Days Qty: 60 0RF omeprazole 20 mg capsule,delayed release(DR/EC) 20 mg PO DAILY Primary Care Provider: [facility] Referrals: [facility] [Primary Care Provider, None] - Keep Yessenia appointment Referral Note: and/or your dermatology physician assistant Activity Restrictions/Additional Instructions: - Continue taking Eliquis 5 mg twice daily as prescribed; do not reduce the dose. - Keep taking your other regular medications (metoprolol, simvastatin, hydrochlorothiazide, omeprazole, vitamin D) at the same doses. - Your head CT, chest x-ray, EKG (aside from atrial fibrillation), troponin lev els, and urinalysis were all normal with no acute findings. - Follow up with your dermatology physician assistant on the as scheduled. - Return to the emergency department right away if you have recurrent slurred speech, confusion, weakness, dizziness, or any new concerning symptoms. Print Language: [place] Disposition Disposition: Home, Self Care
[2024-11-26 11:35] LABS: Hematocrit 45.0 % (40-54); Hemoglobin 15.6 g/dL (13.0-16.5); Immature Granulocytes Count 0.020 X10^3/uL (0.0-0.0); Mean Corp Hgb Conc 34.7 g/dL (32-36); Mean Corpuscular Volume 88.8 fL (80-94); Mean Platelet Vol. 10.6 fl (6.2-12.0); NRBC Flagged by Analyzer 0 % (0-5); POSITIVE DIFFERENTIAL YES; Platelet Count 181 K/mm3 (150-450); RBC Distribution Width CV 13.1 % (11.6-14.6); RBC Distribution Width SD 42.4 fl (35.1-43.9); Red Blood Count 5.07 M/mm3 (4.6-6.2); White Blood Count 7.1 K/mm3 (4.4-11.0)
--- NOTE | 2024-11-26 11:42 | CT_ITS ---
EXAM: NONCONTRAST CT SCAN OF THE HEAD CLINICAL HISTORY: Confusion, dysarthria COMPARISON: None TECHNIQUE: Serial axial series through the head were obtained without contrast. 2-D coronal and sagittal reformats were then obtained. FINDINGS: Brain: There is no acute large territorial infarct, intracranial hemorrhage, midline shift or mass effect. There are atherosclerotic vascular calcifications involving the bilateral carotid siphons. The sella and pineal gland regions appear unremarkable. There is no evidence of cerebellar tonsillar herniation. Ventricles: There is no acute hydrocephalus. Basilar cisterns are patent. Paranasal sinuses: Well-aerated Mastoid air cells: Well-aerated. Calvarium: The bony calvarium is intact. Orbits: The bilateral globes are symmetric, without retrobulbar compressive mass lesion or hemorrhage. CT/Brain/Head without Contrast IMPRESSION: No acute intracranial pathology. Reading [facility]
--- NOTE | 2024-11-26 11:45 | RAD_ITS ---
PROCEDURE: CHEST PA AND LATERAL 11/26/2024 REASON FOR EXAM: GEN WEAKNESS TECHNIQUE: Procedure Code: RADCXR Modality: DX Procedure: Three-view CHEST PA AND LATERAL COMPARISON: Assembler Tractor from the chest CT of 11/21/2024. RAD/Chest PA and Lateral IMPRESSION: Examination limited by hypoinflation, as well as patient motion of the lateral views. No acute pneumonic process is appreciated. No evidence of pulmonary edema. No pleural effusion or pneumothorax is seen. The cardiomediastinal silhouette is stable, without evidence of cardiomegaly. [id number] degenerative changes of the visualized spine are also seen. N o acute osseous change is noted. Reading Location: [id number]
[2024-11-26 11:52] LABS: Troponin T High Sensitivity 10 ng/L (<=22)
[2024-11-26 11:54] LABS: AST(SGOT) 25 U/L (<=37); Alanine Aminotransfer ALT/SGPT 27 U/L (<=46); Albumin, Serum 4.2 g/dL (3.4-4.8); Alkaline Phosphatase 83 U/L (40-129); Anion Gap 11 (5-15); BUN 13 mg/dL (4-19); BUN/Creat Ratio 15.0 RATIO (10-20); Calcium,Total 9.5 mg/dL (7.6-11.0); Carbon Dioxide 22.9 mmol/L (21.0-32.0); Chloride 103 mmol/L (98-108); Estimated Creatinine Clearance 69.98 ml/min (50-250); Globulin 3.1 g/dL (2.2-4.2); Glucose 109 mg/dL (70-99); Potassium 4.0 mmol/L (3.3-5.1)
[2024-11-26 12:00] VITALS: BP 138/92; PULSE 66; RESP 18; O2SAT 98
[2024-11-26 12:05] LABS: Red Blood Cells-Urine 0 SEEN /hpf (0-5); Squamous Epithelial Cells - UA 0 SEEN /hpf (0-5)
--- OUTSIDE RECORDS SUMMARY | 2024-11-26 12:09 | XMS RPT_ITS | CCD ---
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 Role Phone Moshe Junior Unavailable Unavailable PROVIDER, UNKNOWN Unavailable Unavailable No, PCP Unavailable Unavailable Anitra Noyola Unavailable [phone] Unavailable Unavailable Chintan Carmona Attending Unavailable Anitra Webb Primary Care Unavailable Anitra Webb Referring Unavailable Anitra Webb Primary Care Unavailable Jasper Bucio Attending Unavailable Seth Lancaster [place] [facility] Unavailable Allergies Allergy Classification Reported Allergen(s) Allergy Type Date of Onset Reaction(s) Facility (1 source) POISON PIEDAD EXTRACT Drug Allergy 02-08-2021 [facility] Work Phone: (1 source) poison piedad extract Drug allergy (disorder) 11-21-2024 [facility] Repository Medications Current Medications Medication Drug Class(es) Dates Sig (Normalized) Sig (Original) aspirin 81 mg delayed release oral tablet (1 source) Platelet Aggregation Inhibitor, Nonsteroidal Anti-inflammatory Drug Start: 07-31-2020 take 81 mg by mouth once daily Aspirin Active 81 MG PO DAILY July 31, 2020 4:07pm atorvastatin 40 mg oral tablet (1 source) HMG-CoA Reductase Inhibitor Start: 07-31-2020 take 40 mg by mouth at bedtime Atorvastatin Active 40 MG PO AT BEDTIME July 31, 2020 3:28pm cholecalciferol 0.05 mg oral capsule (3 sources) Vitamin D Start: 03-11-2016 take 2000 [IU] by mouth once daily Cholecalciferol (Vitamin D3) Active 2000 UNIT PO DAILY March 11, 2016 10:55am Vitamin D3 50 MC G (2000 UT) Oral Tablet Quantity: 0 Refills: 0 Ordered: 19-May-2017 DO Active hydroCHLOROthiazide 25 mg oral tablet (4 sources) Thiazide Diuretic Start: 10-01-2019 take 12.5 mg by mouth once daily Hydrochlorothiazide Active 12.5 MG PO DAILY October 01, 2019 8:28am Start: 03-11-2016 End: 10-01-2019 take 25 mg by mouth once daily Hydrochlorothiazide Discontinued 25 MG PO DAILY March 11, 2016 10:55am October 01, 2019 8:32am take 1 tablet by oswaldo th once daily hydroCHLOROthiazide 12.5 MG Oral Tablet TAKE 1 TABLET DAILY. Quantity: 90 Refills: 1 Ordered: 19-May-2017 DO Active metoprolol tartrate 25 mg oral tablet (5 sources) beta-Adrenergic Yessenia Start: 07-31-2020 take 25 mg by mouth twice daily Metoprolol Tartrate Active 25 MG PO TWICE A DAY July 31, 2020 3:28pm Start: 10-01-2019 End: 07-31-2020 take 25 mg by mouth twice daily Metoprolol Tartrate Discontinued 25 MG PO TWICE A DAY October 01, 2019 8:28am July 31, 2020 3:28pm Start: 03-11-2016 End: 10-01-2019 take 50 mg by mouth twice daily Metoprolol Tartrate Discontinued 50 MG PO TWICE A DAY March 11, 2016 10:55am October 01, 2019 8:32am omeprazole 20 mg delayed release oral capsule (3 sources) Proton Pump Inhibitor Start: 07-22-2020 take 20 mg by mouth once daily Omeprazole Active 20 MG PO DAILY July 22, 2020 10:04am Omeprazole 20 MG Oral Capsule Delayed Release Quantity: 0 Refills: 0 Ordered: 02-Aug-2019 DO Active microencapsulated potassium chloride 10 meq extended release oral tablet (3 sources) Start: 03-11-2016 take 10 mEq by mouth once daily Potassium Chloride Active 10 MEQ PO DAILY March 11, 2016 10:55am Potassium Chlori de [place] ER 10 MEQ Oral Tablet Extended Release Quantity: 0 Refills: 0 Ordered: 19-May-2017 DO Active prazosin 1 mg oral capsule (4 sources) alpha-Adrenergic Yessenia Start: 07-31-2020 take 2 mg by mouth at bedtime Prazosin Active 2 MG PO AT BEDTIME July 31, 2020 3:27pm Start: 10-01-2019 End: 07-31-2020 take 1 mg by mouth at bedtime Prazosin Discontinued 1 MG PO AT BEDTIME October 01, 2019 8:29am July 31, 2020 3:27pm Prazosin HCl - 1 MG Oral Capsule TAKE 2 CAPSULE Quantity: 0 Refills: 0 Ordered: 09-Apr-2020 DO Active sertraline 100 mg oral tablet (4 sources) Serotonin Reuptake Inhibitor Start: 07-31-2020 take 200 mg by mouth once daily Sertraline Active 200 MG PO DAILY July 31, 2020 3:27pm Start: 10-01-2019 End: 07-31-2020 take 100 mg by mouth once daily Sertraline Discontinued 100 MG PO DAILY October 01, 2019 8:31am July 31, 2020 3:29pm Completed/Discontinued Medications Medication Drug Class(es) Dates Sig (Normalized) Sig (Original) methylPREDNISolone 4 mg oral tablet (1 source) Corticosteroid Start: 0 End: 1 take 1 tablet by mouth once Methylprednisolone (Medrol (Wade)) 4 mg tablets,dose pack Discontinued 0 PO per package directions October 01, 2019 10:45am July 31, 2020 3:29pm PO PER PKG DIR rosuvastatin calcium 40 mg oral tablet (2 sources) HMG-CoA Reductase Inhibitor Start: 1 take 1 tablet by mouth once daily Rosuvastatin Calcium 40 MG Oral Tablet TAKE 1 TABLET BY MOUTH EVERY DAY Quantity: 90 Refills: 3 Ordered: 14-May-2020 Anitra Noyola DO Start : 23-Apr-2020 Active simvastatin 40 mg oral tablet (1 source) HMG-CoA Reductase Inhibitor Start: 7 End: 1 take 40 mg by mouth at bedtime Simvastatin Discontinued 40 MG PO AT BEDTIME March 11, 2016 10:55am July 31, 2020 3:29pm Problems Active Problems Problem Classification Problem Date Documented Date Episodic/Chronic Anxiety disorders (2 sources) Mixed anxiety and depressive disorder; Translations: [Anxiety state, unspecified] Chronic Cancer of prostate (5 sources) Personal history of malignant neoplasm of prostate; Translations: [History of malignant neoplasm of prostate] Onset: 2017 Resolved: 08-02-2019 Episodic Cardiac dysrhythmias (1 source) Unspecified atrial fibrillation; Translations: [Unspecified atrial fibrillation] Onset: 11-22-2024 Chronic Coronary atherosclerosis and other heart disease (2 sources) Coronary arteriosclerosis; Translations: [Coronary atherosclerosis of unspecified type of vessel, [place] or graft] Chronic Disorders of lipid metabolism (3 sources) Hyperlipidemia; Translations: [Other and unspecified hyperlipidemia] Chronic Esophageal disorders (3 sources) Gastroesophageal reflux disease; Translations: [Esophageal reflux] Chronic Essential hypertension (3 sources) Hypertensive disorder; Translations: [Unspecified essential hypertension] Chronic Malaise and fatigue (2 sources) Fatigue; Translations: [Other malaise and fatigue] Episodic Other connective tissue disease (1 source) Prepatellar bursitis; Translations: [Prepatellar bursitis, right knee] Episodic Other infections; including parasitic (2 sources) History of herpes zoster; Translations: [Personal history of other infectious and parasitic diseases] Episodic Other nervous system disorders (2 sources) Impairment of balance; Translations: [Other symptoms involving nervous and musculoskeletal systems] Episodic Other nervous system disorders (2 sources) Tremor; Translations: [Abnormal involuntary movements] Episodic Other non-traumatic joint disorders (2 sources) Joint pain; Translations: [Pain in joint, site unspecified] Episodic Other non-traumatic joint disorders (2 sources) Joint stiffness; Translations: [Stiffness of joint, not elsewhere classified, site unspecified] Episodic Other nutritional; endocrine; and metabolic disorders (2 sources) Body mass index 25-29 - overweight; Translations: [Body Mass Index 28.0-28.9, adult] Episodic Other screening for suspected conditions (not mental disorders or infectious disease) (4 sources) Patient encounter status; Translations: [Special screening for other specified conditions] Episodic Peripheral and visceral atherosclerosis (2 sources) Atherosclerosis of aorta; Translations: [Atherosclerosis of aorta] Chronic Comment on above: noted on 08/14/2020 EC HO; Residual codes; unclassified (2 sources) Memory impairment; Translations: [Memory loss] Episodic Spondylosis; intervertebral disc disorders; other back problems (2 sources) Lumbago with sciatica; Translations: [Sciatica] Episodic Varicose veins of lower extremity (2 sources) Varicose veins of lower extremity; Translations: [Asymptomatic varicose veins] Episodic Past or Other Problems Problem Classification Problem Date Documented Da te Episodic/Chronic Other non-traumatic joint disorders (1 source) Pain in right knee; Translations: [Pain in right knee] Onset: 05-25-2024 Episodic Results Test Name Value Interpretation Reference Range Facility 12 Lead EKGon 11-21-2024 12 Lead EKG [facility] [address] [place] [address] 12 Lead EKG 11/21/24 1042 MR#: [id number] Acct: [id number] Name: BENJAMIN STRANGE Rep #: [id number] : 1945 79 From: Jasper Bucio MD Attending Dr: Status: DEP ER Ordering Dr: Seth Lancaster DO Date: 5 Location: ED Sex: M C Admitted: Test Reason : Blood Pressure : */* mmHG Vent. Rate : 79 BPM Atrial Rate : * BPM P-R Int : * ms QRS Dur : 84 ms QT Int : 370 ms P-R-T Axes : * -20 7 degrees QTcB Int : 424 ms Atrial fibrillation Abnormal ECG Confirmed by ITZEL GUERRERO, JASPER ([id number]), food editor CASSANDRA PETERSEN ([id number]) on 11/22/2024 10:00:30 AM Referred By: Confirmed By: JASPER BUCIO MD 11/22/24 1000 Date Jasper Bucio MD CC: Dr. Seth Lancaster, DO; [facility] Signed Normal [facility] Basic Metabolic Profile (BMP )on 11-21-2024 BUN/CRE 13.9 RATIO Normal 11-26 [facility] Comment on above: Performed By: #### L 501.4021, L501.5200, L503.7505, L100.0100, L501.9520, L500.2500 #### [facility] [address] [place], [address] Calcium [Mass/Vol] 9.3 mg/dL Normal 7.6-11.0 [facility] Comment on above: Performed By: #### L 501.4021, L501.5200, L503.7505, L100.0100, L501.9520, L500.2500 #### [facility] [address] [place], [address] Chloride [Moles/Vol] 103 mmol/L Normal 98-108 [facility] Comment on above: Performed By: #### L 501.4021, L501.5200, L503.7505, L100.0100, L501.9520, L500.2500 #### [facility] [address] [place], [address] CO2 [Moles/Vol] 27.1 mmol/L Normal 21.0-32.0 [facility] Comment on above: Performed By: #### L 501.4021, L501.5200, L503.7505, L100.0100, L501.9520, L500.2500 #### [facility] [address] [place], [address] Creatinine [Mass/Vol] 0.86 mg/dL Normal 0.70-1.20 [facility] Comment on above: Performed By: #### L 501.4021, L501.5200, L503.7505, L100.0100, L501.9520, L500.2500 #### [facility] [address] [place], [address] ECRCL 70.79 ml/min Normal 50-250 [facility] Comment on above: Performed By: #### L 501.4021, L501.5200, L503.7505, L100.0100, L501.9520, L500.2500 #### [facility] [address] [place], [address] GAP 8 Normal 5-15 [facility] Comment on above: Performed By: #### L 501.4021, L501.5200, L503.7505, L100.0100, L501.9520, L500.2500 #### [facility] [address] [place], [address] GFR/1.73 sq M.predicted among non-blacks MDRD (S/P/Bld) [Vol rate/Area] 89 mL/min/{1.73_m2} Normal >60 [facility] Comment on above: Result Comment: mL/m in/1.73m2 CKD-EPI Creatinine Equation (2020) Performed By: #### L 501.4021, L501.5200, L503.7505, L100.0100, L501.9520, L500.2500 #### [facility] [address] [place], [address] Glucose [Mass/Vol] 121 mg/dL High 70-99 [facility] Comment on above: Performed By: #### L 501.4021, L501.5200, L503.7505, L100.0100, L501.9520, L500.2500 #### [facility] [address] [place], [address] Potassium [Moles/Vol] 3.9 mmol/L Normal 3.3-5.1 [facility] Comment on above: Performed By: #### L 501.4021, L501.5200, L503.7505, L100.0100, L501.9520, L500.2500 #### [facility] [address] [place], [address] Sodium [Moles/Vol] 139 mmol/L Normal 133-145 [facility] Comment on above: Performed By: #### L 501.4021, L501.5200, L503.7505, L100.0100, L501.9520, L500.2500 #### [facility] [address] [place], [address] Urea nitrogen [Mass/Vol] 12 mg/dL Normal 4-19 [facility] Comment on above: Performed By: #### L 501.4021, L501.5200, L503.7505, L100.0100, L501.9520, L500.2500 #### [facility] [address] [place], [address] CBC W/Diff, Automatedon 10-1 5-2025 Absolute Lymph 0.55 X10 3/uL Low 0.83-4.51 [facility] Comment on above: Performed By: #### L 501.4021, L501.5200, L503.7505, L100.0100, L501.9520, L500.2500 #### [facility] [address] [place], [address] Absolute Neut 10.1 X10 3/uL High 2.0-7.7 [facility] Comment on above: Performed By: #### L 501.4021, L501.5200, L503.7505, L100.0100, L501.9520, L500.2500 #### [facility] [address] [place], [address] Basophils/100 WBC (Bld) 0.3 % Normal 0-1 [facility] Comment on above: Performed By: #### L 501.4021, L501.5200, L503.7505, L100.0100, L501.9520, L500.2500 #### [facility] [address] [place], [address] Eosinophils/100 WBC (Bld) 0.2 % Normal 0-5 [facility] Comment on above: Performed By: #### L 501.4021, L501.5200, L503.7505, L100.0100, L501.9520, L500.2500 #### [facility] [address] [place], [address] Erythrocyte distribution width (RBC) [Ratio] 13.5 % Normal 11.6-14.6 [facility] Comment on above: Performed By: #### L 501.4021, L501.5200, L503.7505, L100.0100, L501.9520, L500.2500 #### [facility] [address] [place], [address] Hematocrit (Bld) [Volume fraction] 44.7 % Normal 40-54 [facility] Comment on above: Performed By: #### L 501.4021, L501.5200, L503.7505, L100.0100, L501.9520, L500.2500 #### [facility] [address] [place], [address] Hemoglobin (Bld) [Mass/Vol] 15.4 g/dL Normal 13.0-16.5 [facility] Comment on above: Performed By: #### L 501.4021, L501.5200, L503.7505, L100.0100, L501.9520, L500.2500 #### [facility] [address] [place], [address] IG% 0.300 Normal 0.0-0.9 [facility] Comment on above: Result Comment: IG% - Immature Granulocytes (promyelocytes, myelocytes and metamyelocytes) > 1% indicates that a LEFT SHIFT is Present. Performed By: #### L 501.4021, L501.5200, L503.7505, L100.0100, L501.9520, L500.2500 #### [facility] [address] [place], [address] Lymphocytes/100 WBC (Bld) 4.8 % Low 19-41 [facility] Comment on above: Performed By: #### L 501.4021, L501.5200, L503.7505, L100.0100, L501.9520, L500.2500 #### [facility] [address] [place], [address] MCH (RBC) [Entitic mass] 31.2 pg Normal 27.0-32.0 [facility] Comment on above: Performed By: #### L 501.4021, L501.5200, L503.7505, L100.0100, L501.9520, L500.2500 #### [facility] [address] [place], [address] MCHC (RBC) [Mass/Vol] 34.5 g/dL Normal 32-36 [facility] Comment on above: Performed By: #### L 501.4021, L501.5200, L503.7505, L100.0100, L501.9520, L500.2500 #### [facility] [address] [place], [address] MCV (RBC) [Entitic vol] 90.5 fL Normal 80-94 [facility] Comment on above: Performed By: #### L 501.4021, L501.5200, L503.7505, L100.0100, L501.9520, L500.2500 #### [facility] [address] [place], [address] Monocytes/100 WBC (Bld) 6.4 % Normal 0-10 [facility] Comment on above: Performed By: #### L 501.4021, L501.5200, L503.7505, L100.0100, L501.9520, L500.2500 #### [facility] [address] [place], [address] Neutrophils/100 WBC (Bld) 88.0 % High 47-70 [facility] Comment on above: Performed By: #### L 501.4021, L501.5200, L503.7505, L100.0100, L501.9520, L500.2500 #### [facility] [address] [place], [address] Nucleated RBC (Bld) [#/Vol] 0 10*3/uL Normal 0-5 [facility] Comment on above: Performed By: #### L 501.4021, L501.5200, L503.7505, L100.0100, L501.9520, L500.2500 #### [facility] [address] [place], [address] Platelet mean volume (Bld) [Entitic vol] 10.6 fL Normal 6.2-12.0 [facility] Comment on above: Performed By: #### L 501.4021, L501.5200, L503.7505, L100.0100, L501.9520, L500.2500 #### [facility] [address] [place], [address] Platelets (Bld) [#/Vol] 154 10*3/uL Normal 150-450 [facility] Comment on above: Performed By: #### L 501.4021, L501.5200, L503.7505, L100.0100, L501.9520, L500.2500 #### [facility] [address] [place], [address] RBC (Bld) [#/Vol] 4.94 10*6/uL Normal 4.6-6.2 [facility] Comment on above: Performed By: #### L 501.4021, L501.5200, L503.7505, L100.0100, L501.9520, L500.2500 #### [facility] [address] [place], [address] RDW SD 44.7 fl High 35.1-43.9 [facility] Comment on above: Performed By: #### L 501.4021, L501.5200, L503.7505, L100.0100, L501.9520, L500.2500 #### [facility] [address] [place], [address] WBC (Bld) [#/Vol] 11.4 10*3/uL High 4.4-11.0 [facility] Comment on above: Performed By: #### L 501.4021, L501.5200, L503.7505, L100.0100, L501.9520, L500.2500 #### [facility] [address] [place], [address] CTA Chest W/WO Contraston CTA Chest W/WO Contrast [facility] [address] [place] [address] CTA Chest W/WO Contrast MR#: [id number] Acct: [id number] Name: BENJAMIN STRANGE Rep #: [id number] : 1945 M 79 From: Javy Jacinto MD PCP: [facility] Status: [facility] ER Study: CTA Chest W/WO Contrast Date of Exam: 11/21/24 Exam# [id number] Ordering Dr: Seth Lancaster DO PROCEDURE: CTA CHEST W/WO CONTRAST 11/21/2024 REASON FOR EXAM: DISSECTION/PE TECHNIQUE: Procedure Code: [id number] Modality: CT Procedure: CTA CHEST W/WO CONTRAST Multiplanar Sagittal and Coronal images were obtained. 3D post processing was performed CONTRAST: Isovue 370 VOLUME: 100 mL One or more dose reduction techniques were used (e.g., Automated exposure control, adjustment of the mA and/or kV according to patient size, use of iterative reconstruction technique). RADIATION DOSE SUMMARY: CTDlvol: 27 mGy DLP: 387 mGycm COMPARISON: None # of known CTs in the past 12 months: 0 # of known Cardiac Nuclear Medicine Studies in the past 12 months: 0 FINDINGS: Thoracic Aorta: Mild atherosclerotic plaque without aneurysm. No dissection. Heart: Mild cardiac enlargement. No pericardial effusion. Severe coronary artery atherosclerosis. Pulmonary Vessels: The timing and quality of the contrast bolus is diagnostic. There is no evidence of acute or chronic pulmonary embolus except for the distal segmental and subsegmental vessels as there is respiratory motion artifact there. Hardware: None Lymph nodes: None appear enlarged. Lungs and Airways: Respiratory motion artifact. Subsegmental atelectasis dependently in the lingula and both lower lobes. Pleura: Subpleural nodule at the level of the superior segment on the right is 1.5 x 0.8 x 1.4 cm. No pleural effusion or pneumothorax. Upper Abdomen: Unremarkable Bones: Degenerative changes of the thoracic spine. CT/CTA Chest W/WO Contrast IMPRESSION: 1. No acute aortic syndrome. Mild aortic atherosclerosis. Severe coronary artery disease. Cardiac enlargement. 2. No evidence of acute or chronic pulmonary embolus. Mild limitation of the distal segmental and subsegmental vessels of the lower lobes. 3. Subpleural nodule superior segment right lower lobe measures up to 15 mm. ACR Fleischner Society recommendations (MacMahon, et al. Radiology 2017; 284(1): 228-43) suggest the following: For patients with high or low risk of lung cancer, follow-up chest CT at 3 months. If stable, additional follow-up chest CT at 18 to 24 months. Alternatively (or additionally) PET/CT or tissue sampling could be performed. Reading Location: [id number] CC: Dr. Seth Lancaster, DO; [facility] Building Equipment Inspector: Signed Normal [facility] Emergency Department Summary on 11-21-2024 Emergency Department Summary [facility] Medical Records Department [address] [place] [address] Emergency Department Summary 11/21/24 MR#: [id number] Acct: [id number] Name: BENJAMIN STRANGE Rep #: [id number] : 1945 79 From: Seth Lancaster DO PCP: [facility] Status:REG ER Location: ED HPI History of Present Illness Chief Complaint: Back Narrative Narrative: Chief complaint and HPI: 79-year-old male with past medical history of GERD, HLD, HTN, history of prostate cancer presents for evaluation of midthoracic back pain. Patient states this morning he woke up and developed right shoulder pain. He states he felt a fullness in which he took Gas-X. States he then had a bowel movement without difficulty. Patient states his left shoulder pain however did not improve and moved to the mid thoracic back between the shoulder blades. Worse when he takes a deep breath then. Took Aleve prior to arrival. Denies any fever, chills, chest pain, abdominal pain, nausea, vomiting, numbness/tingling. Review of systems: See HPI Medications: As listed on the chart Allergies: As listed on the chart PFSH: Per chart Vital signs: As listed on the chart. Reviewed. Physical exam: Gen: A O x3, NAD Head: Normocephalic, atraumatic Eyes: No sclera icterus, conjunctiva clear, PEERl, EOMI ENT: Moist mucous membranes Neck: Trachea midline, No JVD, full range of motion, nontender CV: RRR, no murmurs, no peripheral edema, radial pulses +2 bilaterally Resp: Lungs CTA BL, no w/r/c GI: Abd soft, non-distended, non-tender, no r/r/g Musc: Full ROM, no deformity, no midline spinal tenderness, no bony step-offs, thoracic back pain is not reproducible with palpation Skin: Warm, dry Neuro: Alert, oriented, grossly intact, sensation intact Psych: Cooperative, appropriate mood and affect [facility] Medical History Elevated coronary artery calcium score GERD (gastroesophageal reflux disease) Mixed hyperlipidemia Essential (primary) hypertension Trigger finger h/o radiation PTSD (post-traumatic stress disorder) Hypertension Hyperlipidemia Arthritis Elevated PSA History of prostate cancer Home Medications ???Medication ???Instructions ???Recorded ???Last Taken ???Type cholecalciferol (vitamin D3) 50 2,000 unit PO DAILY 03/11/16 Unkno wn History mcg (2,000 unit) capsule potassium chloride 10 mEq 10 meq PO DAILY 03/11/16 Unknown H istory tablet,extended release(part/cryst) hydrochlorothiazide 25 mg tablet 12.5 mg PO DAILY 10/01/19 Unknown History omeprazole 20 mg capsule,delayed 20 mg PO DAILY 07/22/20 Unknown Hi story release atorvastatin 40 mg tablet 40 mg PO QHS 07/31/20 Unknown Hist ory metoprolol tartrate 25 mg tablet 25 mg PO BID 07/31/20 Unknown Hist ory prazosin 1 mg capsule 2 mg PO QHS 07/31/20 Unknown Histo ry simvastatin 5 mg tablet 5 mg PO QDAY 05/25/24 Unknown Hist ory apixaban 5 mg tablet (Eliquis) 5 mg PO BID 30 days #60 tabs 11/21 Unknown Rx Allergy/AdvReac Type Severity Reaction Status Date / Time poison piedad extract Allergy Hives Verified 11/21/24 10:34 Family History Father Diabetes Hypertension Father Emphysema Mother Hypertension Breast cancer Brother No problems noted. Brother Cancer CVA (cerebral vascular accident) Brother Cancer Surgical History History of cataract surgery History of carpal tunnel release H/O: vasectomy H/O prostatectomy Social History household members: significant other Smoking Status: Never smoker alcohol intake: never caffeine: Yes what type of physical activity do you participate in: none do you feel safe at home: Yes EXAM Physical Exam Const Vital Signs: 11/21/24 10:31 11/21/24 11:30 11/21/24 12:00 Temperature 97.9 F Temperature Source Oral Pulse Rate 84 90 89 Respiratory Rate 18 16 16 Blood Pressure 156/99 H 113/89 H 133/113 H Blood Pressure Mean 118 97 119 Pulse Ox 100 99 99 Oxygen Delivery Method Room Air 11/21/24 13:00 11/21/24 14:00 Temperature Temperature Source Pulse Rate 83 82 Respiratory Rate 16 22 H Blood Pressure 131/97 H 137/110 H Blood Pressure Mean 108 119 Pulse Ox 100 Oxygen Delivery Method MDM MDM MDM Narrative Medical decision making narrative: 79-year-old male with past medical history of GERD, HLD, HTN, history of prostate cancer presents for evaluation of midthoracic back pain. See HPI. On presentation, vitals are stable other than mild hypertension. Differential diagnosis includes but is not limited to arrhythmia, ACS, dissection, PE, electrolyte abnormality, thyroid (more content not included)... Normal [facility] L501.4021on 11-21-2024 Trop T High Sen 12 ng/L Normal <=22 [facility] Comment on above: Performed By: #### L 501.4021, L501.5200, L503.7505, L100.0100, L501.9520, L500.2500 #### [facility] [address] [place], [address] Magnesiumon 11-21-2024 Magnesium [Mass/Vol] 1.6 mg/dL Normal 1.5-2.2 [facility] Comment on above: Performed By: #### L 501.4021, L501.5200, L503.7505, L100.0100, L501.9520, L500.2500 #### [facility] [address] [place], [address] Partial Thromboplast Timeon 11-21-2024 aPTT Coag (Bld) [Time] 27.6 s Normal 24.1-36.2 [facility] Comment on above: Performed By: #### L 300.4310, L300.3900 #### [facility] [address] [place], [address] Pro- Brain NATRIURETIC PEPTI Lydia 11-21-2024 Natriuretic peptide B (Bld) [Mass/Vol] 1123 pg/mL Normal <=1800 [facility] Comment on above: Result Comment: Hear t Failure Unlikely: < 300 pg/mL Heart Failure Likely < 50 Years: > 450 pg/mL 50-75 Years: > 900 pg/mL >75 Years: > 1800 pg/mL Performed By: #### L 501.4021, L501.5200, L503.7505, L100.0100, L501.9520, L500.2500 ####[facility] [address] [place], [address] Prothrombin Time w/INRon INR Coag (PPP) [Relative time] 1.1 {INR} Normal [facility] Comment on above: Performed By: #### L 300.4310, L300.3900 #### [facility] [address] [place], [address] PT Coag (PPP) [Time] 14.3 s Normal 11.7-14.9 [facility] Comment on above: Performed By: #### L 300.4310, L300.3900 #### [facility] [address] [place], [place], [address] Thyroid Stim Hormone (TSH)on 11-21-2024 TSH 1.700 uIU/mL Normal 0.300-4.200 [facility] Comment on above: Performed By: #### L 501.4021, L501.5200, L503.7505, L100.0100, L501.9520, L500.2500 ####[facility] [address] [place] [place], [address] Troponin T HS 2 HRon 025 Trop T High Sen 10 ng/L Normal <=22 [facility] Comment on above: Performed By: #### L 499.0042 #### [facility] [address] [place], [place], [address] Knee 4 or More Viewson 05-25 Knee 4 or More Views [facility] [address] [place], [place] [address] Knee 4 or More Views MR#: [id number] Acct: [id number] Name: BENJAMIN STRANGE Rep #: [id number] : 1945 M 79 From: Aries diego MD PCP: Dr. Anitra Webb DO Status: DEP AMB Study: Knee 4 or More Views Date of Exam: 05/25/24 Exam# [id number] Ordering Dr: Chintan Carmona DO PROCEDURE: KNEE 4 OR MORE VIEWS 05/25/2024 REASON FOR EXAM: CHRONIC PAIN TECHNIQUE: 4 view(s) of the right knee COMPARISON: None FINDINGS: Bones: Findings suggestive of focal osteochondral defect in the medial right femoral condyle. This measures 4 mm. Joints: Moderate degenerative changes. Effusion: Small joint effusion. Soft tissues: Prepatellar soft tissue swelling. Other: RAD/Knee 4 or More Views IMPRESSION: DEGENERATIVE OSTEOARTHROSIS. NO ACUTE FINDINGS. Small joint effusion. Reading Location: [id number] CC: Dr. Chintan Carmona DO; Dr. 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 [address] [place] [address] OFFICE VISIT Date of Service: 05/25/24 MR#: [id number] Acct: [id number] Name: BENJAMIN STRANGE Rep #: [id number] : 1945 Provider: Dr. Chintan fisher DO Age/Sex: 79/M Location: [facility] Status: Signed with Addenda ADDENDUM by MELISSA Quinn on 05/25/24 at 1414 Office Procedure Documentation entered by Carlos Quinn MA 05/25/24 14:14: Ortho Injections Injections Is this a patient provided medication?: No Details: Obtained consent for injection. Under sterile conditions, injected the patients right distal it band with 1cc bupivacaine, and 1cc depo. The patient tolerated the injection well without any noted complication. Patient should call our office if redness develops, pain worsens or if they have any concerns. Office Meds Depo-Medrol 40 mg/mL suspension for injection Performing Provider: Chintan Carmona DO Performing Location: [facility] Administered by: Chintan Carmona DO on 05/25/24 14:11 Dose Route Admin Location Dispensed Lot Number Expiration Date NDC Man ufacturer 40 mg intra-articular Right distal it band 1 mL [id number] 09/07/25 [id number] 0-03 [employer]-UPJHN Date cc: * Signed Intake Vital Signs 02/08/21 11:07 05/25/24 08:57 Height 5 ft 9 in 5 ft 9 in Weight: 179 lb BMI 26.4 Intake Visit Reasons: RIGHT KNEE Allergies poison piedad extract Allergy (Verified 05/25/24 08:57) Hives Medications ???Medication ???Instructions ???Recorded ???Confirmed ???Type cholecalciferol (vitamin D3) 50 2,000 unit PO DAILY 03/11/1605/25 History mcg (2,000 unit) capsule potassium chloride 10 mEq 10 meq PO DAILY 03/11/16 05/25/24 History tablet,extended release(part/cryst) hydrochlorothiazide 25 mg tablet 12.5 mg PO DAILY 10/01/19 05/25/24 History omeprazole 20 mg capsule,delayed 20 mg PO DAILY 07/22/20 05/25/24 H istory release atorvastatin 40 mg tablet 40 mg PO QHS 07/31/20 05/25/24 His tory metoprolol tartrate 25 mg tablet 25 mg PO BID 07/31/20 05/25/24 His tory prazosin 1 mg capsule 2 mg PO QHS 07/31/20 05/25/24 Hist ory simvastatin 5 mg tablet 5 mg PO QDAY 05/25/24 05/25/24 His tory Have you fallen in the past year?: No PFSH Medical History (Updated 05/25/24 @ 10:[address] Chintan Carmona, DO) Elevated coronary artery calcium score GERD (gastroesophageal reflux disease) Mixed hyperlipidemia Essential (primary) hypertension Trigger finger h/o radiation PTSD (post-traumatic stress disorder) Hypertension Hyperlipidemia Arthritis Elevated PSA History of prostate cancer Surgical History (Updated 09/06/21 @ 08:50 by Chika Mcclendon) History of cataract surgery History of carpal tunnel release H/O: vasectomy H/O prostatectomy Family History Father Diabetes Hypertension Father Emphysema Mother Hypertension Breast cancer Brother No problems noted. Brother Cancer CVA (cerebral vascular accident) Brother Cancer Social History household members: significant other Smoking Status: Never smoker alcohol intake: never caffeine: Yes what type of physical activity do you participate in: none do you feel safe at home: Yes HPI RIGHT KNEE Details: This documentation accurately reflects the service provided and the decisions made by me, Dr. Chintan Carmona DO 05/25/24 0822. Part of today???s visit was documented by Ruth STARK, acting as scribe. BENJAMIN STRANGE is a 79 year old M with a medical history significant for but not limited to GERD, hypertension, hyperlipidemia here today for right knee pain. He states that he has been having pain over the medial compartment for about a year but it is doing fine now. his main complaint is over the lateral side of his knee about a month. He states that he had an xray last year and was told that he has bursitis. He does get painful clicking in the lateral knee. He states that he has a loose body over the lateral side of the knee that is tender to touch and moves. He denies previous injury or surgery to the knee. He denies injections and physical therapy. He has been taking Aleve for the pain. He does have an OTC brace that helps him not bend the knee as he has increased pain when he bends the knee. Patient denies history of gout. Ortho Exam General General: Yes no acute distress and Yes well groomed Neurologic: Yes alert and Yes oriented x3 Psychologic: Yes reasonable and appropriate Right Knee Skin/Wound: Yes CDI, No erythema, No ecchymosis and No swelling Homans Sign: No Knee ROM (more content not included)... Normal [facility] No Panel Informationon 07-15 Prostate Specific Antigen Total < 0.01 ng/mL 0.0-4.0 [facility] Work Phone: Comment on above: This test was perfor med using the TPSA assay method for the[employer]ook[employer] chemistry system. Values obtained with differentassay methods cannot be used interchangably.When changing PSA assays in the course of monitoring apatient, additional sequential testing should be carriedout to confirm baseline values. No Panel Informationon 10-08 Not at all - 0 [facility] Work Phone: Minimal Anxiety [facility] Work Phone: 0 1 [facility] Work Phone: Comment on above: Over the last two we eks, how often have you been bothered by the following problems? Feeling nervous, anxious, or on edge: Not at all - 0Not being able to stop or control worrying: Not at all - 0Worrying too much about different things: Not at all - 0Trouble relaxing: Not at all - 0Being so restless that it's hard to sit still: Not at all - 0Becoming easily annoyed or irritable: Not at all - 0Feeling afraid as if something awful might happen: Not at all - 0 No Depression [facility] Work Phone: Not difficult at all MAITE [facility] Work Phone: Negative [facility]it[facility] Work Phone: Office Visit ([facility])on 10-08-2020 Follow-up visit Diagnoses/Problems Aortic atherosclerosis (440.0) (I70.0) noted on 08/14/2020 ECHO CAD (coronary artery disease) (414.00) (I25.10) Body mass index (BMI) of 28.0 to 28.9 in adult (V85.24) (Z68.28) Anxiety and depression (300.00,311) (F41.9,F32.9) HTN (hypertension) (401.9) (I10) Hyperlipidemia (272.4) (E78.5) Tremor (781.0) (R25.1) GERD (gastroesophageal reflux disease) (530.81) (K21.9) Orders HTN (hypertension) Basic Metabolic Panel; Status:Hold For - Exact Date,Retrospective Authorization; Requested for:Approx [id number]; Complete Blood Count; Status:Hold For - Exact Date,Retrospective Authorization; Requested for:Approx [id number]; Hyperlipidemia Lipid Panel; Status:Hold For - Exact Date,Retrospective Authorization; Requested for:Approx [id number]; Patient Discussion/Summary Weight-- For overall health, would recommend limitation of refined carbohydrates such as pasta, pretzels, crackers, breads, alcohol, sugar sweetened foods or beverages , pastries, cereals, or bagels. Recommend eating lots of vegetables, lean proteins, some fruits. Eat small amounts of healthy fat daily, such as a handful of almonds or walnuts, a serving of salmon, a generous splash of olive oil on your salad, an avocado. Recommend some sort of exercise 5-6 times per week, 30 minutes those days, as patient is able. 150 minutes of exercise per week divided up on multiple days is recommended. You may want to consider intermittent fasting. There are several different approaches to this, but a straightforward and fairly easy one is to refrain from eating any calories for 12 hours every day. For example, from 8 PM until 8 AM, have nothing but water, or black coffee or tea in the morning. No cream or sugar should be used if you have coffee or tea. Make sure you have adequate fluid intake during this time, and throughout the day. This. A fast demands that your body pull upon stores of visceral fat for energy. This can help improve sugar readings, can improve cholesterol profiles, can decrease waist circumference, and can contribute to weight loss. If after one month of 12 hour intermittent fasting, you feel comfortable increasing the hours, you may go for 14 hours, and even up to 16 hours. For example, stopped eating at 8 PM and don't eat again until noon the next day, breaking the fast at lunchtime. Snacking during the period of fast will break the fast and will not result in the same outcomes. It is not recommended that you go beyond 16 hours of fasting. Mood-- scales and scores have been reviewed and discussed, doing well and stable CONTINUE Sertraline daily Hypertension-- BP is 144/78 in office today. CONTINUE HCTZ 12.5 mg + Metoprolol 25 mg twice daily. Patient is encouraged to continue low sodium diet (Dietary Approach to Stop Hypertension, or DASH diet). Exercise most days of the week. Limit refined carbohydrates such as pretzels, cereals, breads, pastries, alcohol. If patient wishes to try a natural approach to lowering blood pressure, can consider whey protein 20 -30 g daily (hydrolyzed is best, but any is ok) and/or aged garlic 600 mg twice daily (Kyolic brand aged garlic on line is one example) and/ or CoQ10 supplement at 120 mg - 360 mg daily (average dose studied 225mg daily). HLD + CAD-- presently on Rosuvastatin 40 mg daily (changed from Simvastatin around 05/2020 due to below results) I ALSO RECOMMEND ADDING IN BABY ASPIRIN (81 MG) DAILY Recommend taking a Baby Aspirin 81 mg daily with food to reduce your risk for stroke and heart attack. If you begin to see bloody or black tarry stool, or develop severe abdominal pain after taking Aspirin, please discontinue use of the medication 04/2020 lipid panel elevated with TC/HDL ratio 4.5 (GOAL IS 3.5 OR LESS) 05/2020 CT cardiac score 2197.62 which is high risk category. 08/12/2020 STRESS TEST: normal, rare PAC/PVC on recovery. 08/14/2020 ECHO: LV systolic function normal with EF 60 %. Left atrium mildly enlarged. Mild (1+) mitral valve insufficiency. Mild tricuspid valve insufficiency. Mild diffuse aortic valve thickening. Calcified aortic root. RV systolic pressure estimated to be 34 mmHg. Diastolic function is indeterminate. Tremors-- previously evaluated by neurology, felt to be essential tremor May try using weights to help with tremors (such as weighted silverware or wrist weights) GERD-- previously reported dysphagia resolved at this time, continues with daily omeprazole. Has been recently evaluated by GI and was set up for EGD but has deferred this due to logistical issue (does not have anyone to drive him) Joint pain and stiffness-- prior work-up was normal which is reassuring. 04/2020 CBC, CMP, EVY, ESR, CRP, CCP, CK, TSH, and protein electrophoresis was normal. Labs have been printed. Please have these done fasting in advance of your next office visit. Fast should be at least 8 hours. You may have water or black coffee that morning. Our lab opens at 7:30 am. No appointment is needed - walk ins with you (more content not included)... Normal [employer] Tobacco Screening.on Fall risk assessment a) No falls within the last year -[facility] Work Phone: Tobacco use status CP b) No -[facility] Work Phone: CT CARDIAC SCORINGon 021 CT CARDIAC SCORING Patient Name: BENJAMIN STRANGE STUDY: CT CARDIAC SCORING; 05/09/2020 8:42 am INDICATION: hx HLD; screening. COMPARISON: None. ACCESSION NUMBER(S): [id number] ORDERING CLINICIAN: ANITRA HOOVER TECHNIQUE: Using prospective ECG gating, CT scan of the coronary arteries was performed without intravenous contrast. Coronary calcium scoring was performed according to the method of Agatston. FINDINGS: The score and distribution of calcium in the coronary arteries is as follows: LM 0, 0 LAD 743.47, 11 LCx 119.01, 6 RCA 1335.14, 29 Total 2197.62 The visualized ascending thoracic aorta measures 3.7 cm in diameter. The heart is normal in size. No pericardial effusion is present. No gross evidence of mediastinal or hilar lymphadenopathy or masses is identified. The visualized segments of the lungs are normally expanded. The main pulmonary artery, right and left pulmonary artery are normal in size. The visualized subdiaphragmatic structures appear intact. IMPRESSION: 1. Coronary artery calcium score of 2197.62*. *Coronary Artery Agatston score Score risk Very low 1-99 Mildly increased 100-299 Moderately increased >300 Moderate to severely increased >800 Evans et al. JCCT 2016 (http://dx.doi.org/10 .1016/j.jcct.2016.11. 003) PAK 10-Year CHD Risk with Coronary Artery Calcification can be calcuate using link below https://www.pak-nhlb i.org/MESACHDRisk/Mes aRiskScore/RiskScore. aspx Angélica jorgensen al. JACC 2015 (http://dx.doi.org/10 .1016/j.j acc.2015.08.035) Electronically signed by: HUSSAIN CASTILLO MD Normal [facility] PROT.ELECTRO,URN PATH REVIEW on 04-24-2020 PATH REVIEW-JODI GRANADOS Normal [facility] Comment on above: Result Comment: By h er/his signature above, the Pathologist listed as making the final interpretation certifies that she/he has personally reviewed this case. Performed By: #### T HYDS #### [facility] [address] [place] [address] PROTEIN ELECTROPHORESIS, RAN USHAon 04-24-2020 INTERPRETATION NORMAL Normal [facility] Comment on above: Performed By: #### E LURS #### [facility] [address] [place] [address] ALBUMIN 1.7 mg/dL Normal [facility] Comment on above: Performed By: #### E LURS #### [facility] [address] [place] [address] ALPHA 1 GLOBULIN 0.6 mg/dL Normal [facility] Comment on above: Performed By: #### E LURS #### [facility] [address] [place] [address] ALPHA 2 GLOBULIN 1.1 mg/dL Normal [facility] Comment on above: Performed By: #### E LURS #### [facility] [address] [place] [address] BETA GLOBULIN 1.2 mg/dL Normal [facility] Comment on above: Performed By: #### E LURS #### [facility] [address] [place] [address] GAMMA GLOBULIN 0.4 mg/dL Normal [facility] Comment on above: Performed By: #### E LURS #### [facility] [address] [place] [address] EVY-WITH REFLEX TO ENAon EVY WITH REFLEX TO TAYLOR Negative Normal NEGATIVE [facility] Comment on above: Performed By: #### A NA2 #### [facility] [address] [place] [address] C-REACTIVE PROTEINon 021 C-REACTIVE PROTEIN 0.11 mg/dL Normal [facility] Comment on above: Result Comment: REF VALUE < 1.00 Performed By: #### C RP #### [facility] [address] [place] [address] CBC AND DIFFERENTIALon 04-23 % AUTOMATED IMMATURE GRAN 0.2 % Normal 0.0 - 0.9 [facility] Comment on above: Result Comment: Yanira ture Granulocyte Count (IG) includes promyelocytes, myelocytes and metamyelocytes but does not include bands. Percent differential counts (%) should be interpreted in the context of the absolute cell counts (cells/L). Performed By: #### C BCDF #### [facility] [address] [place] [address] Basophils (Bld) [#/Vol] 0.03 10*3/uL Normal 0.00 - 0.10 [facility] Comment on above: Performed By: #### C BCDF #### [facility] [address] [place] [address] Basophils/100 WBC (Bld) 0.5 % Normal 0.0 - 2.0 [facility] Comment on above: Performed By: #### C BCDF #### [facility] [address] [place] [address] Eosinophils (Bld) [#/Vol] 0.08 10*3/uL Normal 0.00 - 0.40 [facility] Comment on above: Performed By: #### C BCDF #### [facility] [address] [place] [address] Eosinophils/100 WBC (Bld) 1.3 % Normal 0.0 - 6.0 [facility] Comment on above: Performed By: #### C BCDF #### [facility] [address] [place] [address] Erythrocyte distribution width (RBC) [Ratio] 13.4 % Normal 11.5 - 14.5 [facility] Comment on above: Performed By: #### C BCDF #### [facility] [address] [place] [address] Hematocrit (Bld) [Volume fraction] 44.0 % Normal 41.0 - 52.0 [facility] Comment on above: Performed By: #### C BCDF #### [facility] [address] [place] [address] Hemoglobin (Bld) [Mass/Vol] 14.4 g/dL Normal 13.5 - 17.5 [facility] Comment on above: Performed By: #### C BCDF #### [facility] [address] [place] [address] Lymphocytes (Bld) [#/Vol] 0.64 10*3/uL Low 0.80 - 3.00 [facility] Comment on above: Performed By: #### C BCDF #### [facility] [address] [place] [address] Lymphocytes/100 WBC (Bld) 10.7 % Normal 13.0 - 44.0 [facility] Comment on above: Performed By: #### C BCDF #### [facility] [address] [place] [address] MCHC (RBC) [Mass/Vol] 32.7 g/dL Normal 32.0 - 36.0 [facility] Comment on above: Performed By: #### C BCDF #### [facility] [address] [place] [address] MCV (RBC) [Entitic vol] 91 fL Normal 80 - 100 [facility] Comment on above: Performed By: #### C BCDF #### [facility] [address] [place] [address] Monocytes (Bld) [#/Vol] 0.41 10*3/uL Normal 0.05 - 0.80 [facility] Comment on above: Performed By: #### C BCDF #### [facility] [address] [place] [address] Monocytes/100 WBC (Bld) 6.9 % Normal 2.0 - 10.0 [facility] Comment on above: Performed By: #### C BCDF #### [facility] [address] [place] [address] Neutrophils (Bld) [#/Vol] 4.79 10*3/uL Normal 1.60 - 5.50 [facility] Comment on above: Performed By: #### C BCDF #### [facility] [address] [place] [address] Neutrophils/100 WBC (Bld) 80.4 % Normal 40.0 - 80.0 [facility] Comment on above: Performed By: #### C BCDF #### [facility] [address] [place] [address] NUCLEATED RBC 0.0 /100 WBC Normal 0.0-0.0 [facility] Comment on above: Performed By: #### C BCDF #### [facility] [address] [place] [address] Platelets (Bld) [#/Vol] 178 10*3/uL Normal 150 - 450 [facility] Comment on above: Performed By: #### C BCDF #### [facility] [address] [place] [address] RBC 4.81 x10E12/L Normal 4.50 - 5.90 [facility] Comment on above: Performed By: #### C BCDF #### [facility] [address] [place] [address] WBC (Bld) [#/Vol] 6.0 10*3/uL Normal 4.4 - 11.3 [facility] Comment on above: Performed By: #### C BCDF #### [facility] [address] [place] [address] CITRULLINE ANTIBODYon 2020 CITRULLINE ANTIBODY <1 Normal [facility] Comment on above: Result Comment: THE TEST FOR ANTIBODIES SPECIFIC FOR CYCLIC CITRULLINATED PEPTIDE (CCP) HAS SHOWN TO BE VALUABLE IN THE DIAGNOSIS OF RHEUMATOID ARTHRITIS. THE DIAGNOSTIC VALUE OF ANTIBODIES TO CCP IN JUVENILE RHEUMATOID ARTHRITIS PATIENTS HAS NOT BEEN DETERMINED. ANTIBODIES TO CENTROMERE OR SS-A AND MYELOMA IGG MAY BE REACTIVE IN THIS ASSAY. REF VALUES NEGATIVE < 3 U/ML POSITIVE >=3 U/ML Performed By: #### C ITAB #### [facility] [address] [place] [address] COMPREHENSIVE PANELon 2020 Albumin [Mass/Vol] 4.5 g/dL Normal 3.4 - 5.0 [facility] Comment on above: Performed By: #### C MP #### [facility] [address] [place] [address] ALP [Catalytic activity/Vol] 53 U/L Normal 33 - 136 [facility] Comment on above: Performed By: #### C MP #### [facility] [address] [place] [address] ALT [Catalytic activity/Vol] 21 U/L Normal 10 - 52 [facility] Comment on above: Result Comment: Matilde ents treated with Sulfasalazine may generate falsely decreased results for ALT. Performed By: #### C MP #### [facility] [address] [place] [address] Anion gap [Moles/Vol] 12 mmol/L Normal 10 - 20 [facility] Comment on above: Performed By: #### C MP #### [facility] [address] [place] [address] AST [Catalytic activity/Vol] 20 U/L Normal 9 - 39 [facility] Comment on above: Performed By: #### C MP #### [facility] [address] [place] [address] Bilirubin [Mass/Vol] 0.7 mg/dL Normal 0.0 - 1.2 [facility] Comment on above: Performed By: #### C MP #### [facility] [address] [place] [address] Calcium [Mass/Vol] 9.2 mg/dL Normal 8.6 - 10.6 [facility] Comment on above: Performed By: #### C MP #### [facility] [address] [place] [address] Chloride [Moles/Vol] 103 mmol/L Normal 98 - 107 [facility] Comment on above: Performed By: #### C MP #### [facility] [address] [place] [address] Creatinine [Mass/Vol] 0.89 mg/dL Normal 0.50 - 1.30 [facility] Comment on above: Performed By: #### C MP #### [facility] [address] [place] [address] GFR- AM. >60 Normal >60 [facility] Comment on above: Result Comment: CALC ULATIONS OF ESTIMATED GFR ARE PERFORMED USING THE MDRD STUDY EQUATION FOR THE IDMS-TRACEABLE CREATININE METHODS. CLIN CHEM 2007;53:766-72 Performed By: #### C MP #### [facility] [address] [place] [address] GFR-NON AM. >60 Normal >60 [facility] Comment on above: Performed By: #### C MP #### [facility] [address] [place] [address] Glucose [Mass/Vol] 78 mg/dL Normal 74 - 99 [facility] Comment on above: Performed By: #### C MP #### [facility] [address] [place] [address] HCO3 (Bld) [Moles/Vol] 29 mmol/L Normal 21 - 32 [facility] Comment on above: Performed By: #### C MP #### [facility] [address] [place] [address] Potassium [Moles/Vol] 4.1 mmol/L Normal 3.5 - 5.3 [facility] Comment on above: Performed By: #### C MP #### [facility] [address] [place] [address] Protein [Mass/Vol] 6.7 g/dL Normal 6.4 - 8.2 [facility] Comment on above: Performed By: #### C MP #### [facility] [address] [place] [address] Sodium [Moles/Vol] 140 mmol/L Normal 136 - 145 [facility] Comment on above: Performed By: #### C MP #### [facility] [address] [place] [address] Urea nitrogen [Mass/Vol] 16 mg/dL Normal 6 - 23 [facility] Comment on above: Performed By: #### C MP #### [facility] [address] [place] [address] CREATINE KINASEon 04-23-2020 CK [Catalytic activity/Vol] 138 U/L Normal 0 - 325 [facility] Comment on above: Performed By: #### C K #### [facility] [address] [place] [address] LIPID PANEL (CORONARY RISK 2 )on 04-23-2020 Cholesterol [Mass/Vol] 179 mg/dL Normal 0 - 199 [facility] Comment on above: Result Comment: . AGE DESIRABLE BORDERLINE HIGH HIGH 0-19 Y 0 - 169 170 - 199 >/= 200 20-24 Y 0 - 189 190 - 224 >/= 225 >24 Y 0 - 199 200 - 239 >/= 240 All ranges are based on fasting samples. Specific therapeutic targets will vary based on patient-specific cardiac risk. . Pediatric guidelines reference:Pediatrics 2011, 128(S5). Adult guidelines reference: NCEP ATPIII Guidelines, GREGORIO 2001, 258:2486-97 . Venipuncture immediately after or during the administration of Metamizole may lead to falsely low results. Testing should be performed immediately prior to Metamizole dosing. Performed By: #### L IPID #### [facility] [address] [place] [address] Cholesterol in HDL [Mass/Vol] 39.7 mg/dL Abnormal [facility] Comment on above: Result Comment: . AGE VERY LOW LOW NORMAL HIGH 0-19 Y < 35 < 40 40-45 ---- 20-24 Y ---- < 40 >45 ---- >24 Y ---- < 40 40-60 >60 . Performed By: #### L IPID #### [facility] [address] [place] [address] Cholesterol in LDL [Mass/Vol] 117 mg/dL High 0 - 99 [facility] Comment on above: Result Comment: . NEAR BORD AGE DESIRABLE OPTIMAL HIGH HIGH VERY HIGH 0-19 Y 0 - 109 --- 110-129 >/= 130 ---- 20-24 Y 0 - 119 --- 120-159 >/= 160 ---- >24 Y 0 - 99 100-129 130-159 160-189 >/=190 . Performed By: #### L IPID #### [facility] [address] [place] [address] Cholesterol in VLDL [Mass/Vol] 22 mg/dL Normal 0 - 40 [facility] Comment on above: Performed By: #### L IPID #### [facility] [address] [place] [address] Cholesterol.total/Ch olesterol in HDL [Mass ratio] 4.5 {ratio} Normal [facility] Comment on above: Result Comment: REF VALUES DESIRABLE < 3.4 HIGH RISK > 5.0 Performed By: #### L IPID #### [facility] [address] [place] [address] Triglyceride [Mass/Vol] 111 mg/dL Normal 0 - 149 [facility] Comment on above: Result Comment: . AGE DESIRABLE BORDERLINE HIGH HIGH VERY HIGH 0 D-90 D 19 - 174 ---- ---- ---- 91 D- 9 Y 0 - 74 75 - 99 >/= 100 ---- 10-19 Y 0 - 89 90 - 129 >/= 130 ---- 20-24 Y 0 - 114 115 - 149 >/= 150 ---- >24 Y 0 - 149 150 - 199 200- 499 >/= 500 . Venipuncture immediately after or during the administration of Metamizole may lead to falsely low results. Testing should be performed immediately prior to Metamizole dosing. Performed By: #### L IPID #### [facility] [address] [place] [address] PROTEIN ELECTROPHORESIS, RAN DOMon 04-23-2020 TOTAL PROT,URINE SPOT 5 mg/dL Normal 5 - 25 [facility] Comment on above: Performed By: #### E LURS #### [facility] [address] [place] [address] SEDIMENTATION RATE, ERYTHROC YTEon 04-23-2020 SEDIMENTATION RATE, ERYTHROCYTE 8 mm/h Normal 0 - 20 [facility] Comment on above: Performed By: #### T HYDS #### [facility] [address] [place] [address] TSH WITH REFLEX TO FREE T4 I F ABNORMALon 04-23-2020 TSH Qn 1.87 m[IU]/L Normal 0.44 - 3.98 [facility] Comment on above: Result Comment: TSH testing is performed using different testing methodology at [facility] than at other [facility]. Direct result comparisons should only be made within the same method. Performed By: #### T HYDS #### [facility] [address] [place] [address] MRI Pelvis w/ + w/o Contrast on 03-27-2017 MRI Pelvis w/ + w/o Contrast Patient Name: BENJAMIN STRANGE MRI Exam Date/Time 2017 09:27:42 EST Exam MRI Pelvis w/ + w/o Contrast Ordering Physician UNASSIGNED, UNASSIGNED Accession Number [id number] CPT4 Codes 56683 () Reason For Exam adenocarcinoma of the prostate Report MRI PROSTATE WITHOUT AND WITH CONTRAST: CLINICAL INDICATION: 72-year-old male patient with history of malignant neoplasm of the prostate, adenocarcinoma, and status post prostatectomy one year ago. PSA is normal. Scan prior to radiation treatment. TECHNIQUE: Transaxial T1 whole pelvis along with sagittal, transaxial and coronal and diffusion weighted T2 sequences with small xpuvq-oe-wyrz through the lower pelvis. Dynamic multiphase T1 fat suppression sequences were also performed with small ucxfy-sl-irwn following administration of 15 ml Magnevist contrast. COMPARISON: None FINDINGS: Exam quality: Good visualization of prostate and pelvic structures. Prostate size: Not measurable, status post prostatectomy Peripheral zone: Not applicable Transitional zone: Not applicable Capsule: Not applicable Seminal vesicles: Not applicable Lymphadenopathy: None Adjacent pelvic structures including bladder and rectum: T1 hyperintense nodular focus in the right scrotal sac, suggest correlation with scrotal ultrasound. Other pelvic organs: A Bursa, 3.4 x 1.5 cm in size, seen lateral to the obturator internus on the left side, and appearing to communicate with clustering of bursae at the ischial tuberosity on the left, immediately posterior to the quadratus femoris, and anterior to the gluteus levi muscle. Trace small amount of fluid at the ischial tuberosity on the right side. More detailed assessment of this may be obtained by MRI of the pelvis with particular attention to the hips initial tuberosities. There is enhancement of the martínez of these bursae, especially at the ischial tuberosity on the left. There is enhancement of what appears to be a greater trochanteric bursa on the left Free fluid: None Osseous structures: Unremarkable IMPRESSION: 1. Absent prostate status post prostatectomy. 2. Bursal fluid at the ischial tuberosities, more prominent on the left side where there is extension of a prominent bursa lateral to the obturator internus and that bursa measures approximately 3.4 x 1.5 cm in size. Capsular enhancement of these bursae. 3. Question of bursal enhancement at the greater trochanter on the left. 4. Suggest correlation with orthopedic evaluation, follow-up with MRI of the hips and pelvis suggested. Report Dictated on Final Dictated: 03/27/2017 2:29 pm Dictating Physician: MD MCCORD SHARDUL Signed Date and Time: 03/27/2017 2:46 pm Signed by: MD MCCORD SHARDUL Transcribed Date and Time: 03/27/2017 2:29 Normal [facility] Vital Signs Date Time Vital Sign Value Performing Clinician Facility 10-08-2020 10:14-0400 Body mass index (BMI) [Ratio] 28.74 kg/m2 Anitra E Van Nostran Work Phone: [facility] Work Phone: 10-08-2020 10:14-0400 Body surface area Derived from formula 1.91 m2 Anitra Issa Van Nostran Work Phone: [facility] Work Phone: 10-08-2020 10:14-0400 Body temperature 96.8 [degF] Anitra Luis Manuel [facility] Work Phone: [facility] Work Phone: 10-08-2020 10:14-0400 Body weight 81.37 kg Anitra Luis Manuel Van [facility] Work Phone: [facility] Work Phone: 10-08-2020 10:14-0400 Diastolic blood pressure 78 mm[Hg] Anitra Luis Manuel Van Nostran Work Phone: [facility] Work Phone: 10-08-2020 10:14-0400 Heart rate 47 /min Anitra Luis Manuel Van Nostran Work Phone: [facility] Work Phone: 10-08-2020 10:14-0400 SaO2% (BldA) [Mass fraction] 95 % Anitra Luis Manuel Van Nostran Work Phone: [facility] Work Phone: 10-08-2020 10:14-0400 Systolic blood pressure 144 mm[Hg] Anitra Issa Van Nostran Work Phone: [facility] Work Phone: Encounters Encounter Date Encounter Type Care Provider Facility Start: 11-21-2024 End: 11-21-2024 Emergency department patient visit Seth Lancaster Facility:[facility] Start: 05-25-2024 End: 05-25-2024 ambulatory Chintan Carmona Facility:[facility] Start: 07-15-2021 End: 07-15-2021 Patient encounter procedure [facility] [place] Start: 10-08-2020 Office outpatient vi sit 25 minutes Anitra Noyola Work Phone: Shena Johnson Work Phone: Start: 2017 Ambulatory [facility]he Junior [facility] Patient encounter procedure Anitra Noyoal Work Phone: Shena Johnson Work Phone: Procedures Date Procedure Procedure Detail Performing Clinician Start: 07-02-2021 Medicare Annual Well ness Visit Cataract surgery Anitra lujan Nosmitchell Work Phone: Prostate Surgery Anitra lujan Nostran Work Phone: Plan of Treatment Date Care Activity Detail Author Start: 04-15-2021 Patient encounter procedure MCRANNUAL, Provider: Anitra Noyola, Status: Pen, Time: 9:20 AM Shena Johsnon Work Phone: Start: 11-03-2020 PHYSICAL, Provider: Anitra Noyola, Status: Pen, Time: 1:50 PM PHYSICAL, Provider: Anitra Noyola, Status: Pen, Time: 1:50 PM Shena Johnson Work Phone: Immunizations Immunization Date Immunization Notes Care Provider Fa cility 05-06-2020 Pfizer-BioNTech COVID-19 Vacc 30 MCG/0.3ML Intramuscular Suspension Anitra Noyola Work Phone: Shena Johnson Work Phone: 04-14-2020 Pfizer-BioNTech COVID-19 Vacc 30 MCG/0.3ML Intramuscular Suspension [facility] Noyola [facility] Work Phone: Payers Date Payer Category Payer Unknown [id number] 18 2024 Self-pay [id number] 2011 Medicare [id number] Unknown Unknown VA AUTH REQUIRED SEE NOTE* * [id number] Unknown [id number] Unknown [id number] Unknown [id number] Social History Date Type Detail Facility Caffeine use [facility] Work Phone: Start: 02-08-2021 Tobacco smoking stat [facility] Unknown if ever smoked [facility] Work Phone: Start: 1945 Sex Assigned At Male [facility] Work Phone: Functional Status Date Assessment Result Facility 10-08-2020 PHQ-9 Adult Depressi on Score PHQ-9 Adult Depression Score 0 [facility] Work Phone: Comment on above: Q1: 0, Q2: 0, Q3: 0, Q4: 0, Q5: 0, Q6: 0, Q7: 0, Q8: 0, Q9: 0, History of Present illness Narrative 04-09-2020 Note Date & Type Note Facility 04-09-2020 History of Present illness Narrative [facility] LAST COMPLETED 04/09/2020Health maintenance:TDAP-- none foundInfluenza-- Due Fall hingrix-- none found (history of [place] outbreak)Pneumonia series-- none foundCscope(45-75)-- 06/2018 (sessile colon polyp x 1 + tubular adenoma x 1)AAA Screen(65-79)-- N/A (never smoker)PSA-- <0.10 in (brother with hx of prostate cancer)Anxiety/Depression-- HQ-9: 0GAD-7: 0Hepatitis C Screen-- none foundLipid Panel-- ratio: 4.5 in T cardiac score-- 2197.62 (high) atient presents today for health management of mood, HTN, and HLD/CAD.Patient presents with no additional complaints today.Presently on Sertraline 200 mg daily for mood. Patient is taking and tolerating the medications as prescribed. Patient denies suicidal ideation. Patient reports good control on the current medication. Patient denies any symptoms of alicia such as pressured speech, impulsive purchases. Patient is satisfied with their current regimen and wishes to continue.PHQ-9 is 0 today.SHARON-7 is 0 today.On HCTZ 12.5 mg + Metoprolol 25 mg BID daily for blood pressure. Patient denies chest pain, shortness of breath with exertion, palpitations, lower extremity edema, headache, or dizziness. Medications are being taken and tolerated well. No side effects are reported. Patient is taking blood pressure outside of office and reports good control.HLD + CAD, presently on Rosuvastatin 40 mg daily. Was advised to take baby aspirin but states he has not been taking due to things he has read online.04/2020 lipid panel elevated with TC/HDL ratio 4. CT cardiac score 2197.62 which is high risk category.Medications are being taken as directed and tolerated well. Patient denies any facial droop, sudden vision loss, weakness or numbness on one side of body. Patient denies chest pain, shortness of breath with exertion, palpitations, or symptoms of claudication.08/12/2020 STRESS TEST: normal, rare PAC/PVC on recovery.08/14/2020 ECHO: LV systolic function normal with EF 60 %. Left atrium mildly enlarged. Mild (1+) mitral valve insufficiency. Mild tricuspid valve insufficiency. Mild diffuse aortic valve thickening. Calcified aortic root. RV systolic pressure estimated to be 34 mmHg. Diastolic function is indeterminate.Last seen 04/2020, at that time patient also reported tremors + confusion + change in balance. Suspected possible Parkinson's, he was referred to neurology for possible evaluation. Saw neuro about 1 month ago, was told he felt it was essential tremor.Also with history of GERD currently taking omeprazole 20 mg. At 04/2020 OV patient symptomatic with dysphagia. Last EGD >10 years ago per patient. GI referral placed at that time. States that he was set up for testing but did not follow-up with this as he does not have anyone to drive him for this. Today he reports that symptoms appear to have resolved, continues to take omeprazole daily.Due to complaint of joint pain and joint stiffness we also initiated rheumatologic work-up.04/2020 CBC, CMP, EVY, ESR, CRP, CCP, CK, TSH, and protein electrophoresis was normal.Also noted some fatigue, presently on Prazosin for urinary symptoms. He planned to discontinue as felt this was cause of fatigue. Sees urology in January 2021 [facility] Work Phone: History of Present illness Narrative 04-09-2020 Note Date & Type Note Facility 04-09-2020 History of Present illness Narrative [facility] LAST COMPLETED 04/09/2020Health maintenance:TDAP-- none foundInfluenza-- Due Fall hingrix-- none found (history of [place] outbreak)Pneumonia series-- none foundCscope(45-75)-- 06/2018 (sessile colon polyp x 1 + tubular adenoma x 1)AAA Screen(65-79)-- N/A (never smoker)PSA-- <0.10 in (brother with hx of prostate cancer)Anxiety/Depression-- HQ-9: 0GAD-7: 0Hepatitis C Screen-- none foundLipid Panel-- ratio: 4.5 in T cardiac score-- 2197.62 (high) atient presents today for health management of mood, HTN, and HLD/CAD.Patient presents with no additional complaints today.Presently on Sertraline 200 mg daily for mood. Patient is taking and tolerating the medications as prescribed. Patient denies suicidal ideation. Patient reports good control on the current medication. Patient denies any symptoms of alicia such as pressured speech, impulsive purchases. Patient is satisfied with their current regimen and wishes to continue.PHQ-9 is 0 today.SHARON-7 is 0 today.On HCTZ 12.5 mg + Metoprolol 25 mg BID daily for blood pressure. Patient denies chest pain, shortness of breath with exertion, palpitations, lower extremity edema, headache, or dizziness. Medications are being taken and tolerated well. No side effects are reported. Patient is taking blood pressure outside of office and reports good control.HLD + CAD, presently on Rosuvastatin 40 mg daily. Was advised to take baby aspirin but states he has not been taking due to things he has read online.04/2020 lipid panel elevated with TC/HDL ratio 4. CT cardiac score 2197.62 which is high risk category.Medications are being taken as directed and tolerated well. Patient denies any facial droop, sudden vision loss, weakness or numbness on one side of body. Patient denies chest pain, shortness of breath with exertion, palpitations, or symptoms of claudication.08/12/2020 STRESS TEST: normal, rare PAC/PVC on recovery.08/14/2020 ECHO: LV systolic function normal with EF 60 %. Left atrium mildly enlarged. Mild (1+) mitral valve insufficiency. Mild tricuspid valve insufficiency. Mild diffuse aortic valve thickening. Calcified aortic root. RV systolic pressure estimated to be 34 mmHg. Diastolic function is indeterminate.Last seen 04/2020, at that time patient also reported tremors + confusion + change in balance. Suspected possible Parkinson's, he was referred to neurology for possible evaluation. Saw neuro about 1 month ago, was told he felt it was essential tremor.Also with history of GERD currently taking omeprazole 20 mg. At 04/2020 OV patient symptomatic with dysphagia. Last EGD >10 years ago per patient. GI referral placed at that time. States that he was set up for testing but did not follow-up with this as he does not have anyone to drive him for this. Today he reports that symptoms appear to have resolved, continues to take omeprazole daily.Due to complaint of joint pain and joint stiffness we also initiated rheumatologic work-up.04/2020 CBC, CMP, EVY, ESR, CRP, CCP, CK, TSH, and protein electrophoresis was normal.Also noted some fatigue, presently on Prazosin for urinary symptoms. He planned to discontinue as felt this was cause of fatigue. Sees urology in January 2021 [facility] Work Phone: Evaluation note Note Date & Type Note Facility Evaluation note No assessment information availa [facility] Work Phone: Summary Purpose Family History No Family History Records FoundUnknown Family Member Name Dates Details FH: emphysema: Father(V17.6, Z82.5) Status:Active Family history of malignant neoplasm of prostate: Brother(V16.42, Z80.42) Status:Active Unknown Family Member Name Dates Details FH: emphysema: Father(V17.6, Z82.5) Status:Active Family history of malignant neoplasm of prostate: Brother(V16.42, Z80.42) Status:Active Relationship Condition Age at Onset Recorded Date/T sergio father Diabetes mellitus Unknown Hypertension Unknown father Pulmonary emphysema Unknown mother Hypertension Unknown Malignant neoplasm of breast Unknown brother Malignant neoplasm Unknown Cerebrovascular accident (CVA) Unknown Advance Directives No Advanced Directives Records Found Advance Directive Response Recorded Date/ Time Advance Directives Yes March 17, 2016 1:51pm Living Will No February 08 12:13pm Power of Clothespin Drier Operator No February 08 022 12:13pm Chief Complaint BENJAMIN STRANGE is here for a follow-up for mood, HTN, and HLD/CAD.BENJAMIN STRANGE is here for a follow-up for mood, HTN, and HLD/CAD. Additional Source Comments (unrecognized sect ion and content) No Status Records FoundNo Status Records FoundNo Status Records FoundNo Status Records Found INFORMATION SOURCE (unrecogn ized section and content) DATE CREATED AUTHOR 07/29/2017 [facility] DATE CREATED AUTHOR AUTHOR'S ORGANIZ ATION 10/09/2020 [facility] DATE CREATED AUTHOR AUTHOR'S ORGANIZ ATION 07/03/2021 [facility] [facility] DATE CREATED AUTHOR AUTHOR'S ORGANIZ ATION 11/23/2024 [facility] Goals (unrecognized section and content) Goals may be documented in a n alternate section FOR RECORDS PERTAINING TO PATIENTS WHO ARE OR HAVE BEEN ENROLLED IN A CHEMICAL DEPENDENCY/SUBSTANCEABUSE PROGRAM, SOME INFORMATION MAY BE OMITTED. This clinical summary was aggregated from multiple sources. Caution should be exercised in using it in the provision of clinical care. This summary normalizes information from multiple sources, and as a consequence, information in this document may materially change the coding, format and clinical context of patient data. In addition, data may be omitted in some cases. CLINICAL DECISIONS SHOULD BE BASED ON THE PRIMARY CLINICAL RECORDS. [facility] [employer] [facility]. provides no warranty or guarantee of the accuracy or completeness of information in this document.
[2024-11-26 12:10] LABS: Color, Urine Yellow (Yellow); Glucose, Dipstick Normal (Normal); Ketone-Dipstick Negative (Negative); Leukocyte Esterase-Dipstick Negative /ul (Negative); Nitrite-Dipstick Negative (Negative); Occult Blood-Urine Negative /ul (Negative); Protein-Dipstick Negative (Negative); Specific Gravity, Urine 1.010 (1.002-1.030); Urine Bilirubin Dipstick Negative (Negative)
[2024-11-26 12:26] LABS: Mucous, Urine RARE /hpf (<or=2+)
[2024-11-26 13:00] VITALS: BP 134/88; PULSE 68; RESP 16; O2SAT 98
[2024-11-26 13:49] LABS: Troponin T High Sens 2 HR 11 ng/L (<=22)
[2024-11-26 14:00] VITALS: BP 138/92; PULSE 73; RESP 19; O2SAT 99
[2024-11-26 14:27] VITALS: BP 138/92; PULSE 73; RESP 19; TEMP 36.8; O2SAT 99
== END 2024-11-26 14:32 | disposition home or self-care (01) ==
PROVIDERS: Emergency Provider Emergency Medicine; Visit Provider Emergency Medicine
DX: I48.19 Other persistent atrial fibrillation (principal); I10 Essential (primary) hypertension; R53.83 Other fatigue; R47.1 Dysarthria and anarthria; R41.0 Disorientation, unspecified; E78.2 Mixed hyperlipidemia; Z79.01 Long term (current) use of anticoagulants; Z79.899 Other long term (current) drug therapy
CPT/HCPCS: 70450; 71046; 80053; 81001; 84484; 85025; 93005; 99284; A4216

== ENCOUNTER → 2025-01-04 | Outpatient (CLI) | payer MEDICARE, SELFPAY ==
--- NOTE | 2025-01-04 08:48 | ECHOD_ITS ---
Reason For Study Reason For Study: Afib, Aflutter Procedure This was a 2D Doppler, Color Flow transthoracic echocardiogram. Exam performed in department. Left Ventricle Normal left ventricle. Normal left ventricular wall thickness. Left ventricular EF by Gaitan's biplane: 56%. Diastolic function indeterminate due to arrhythmia. E/e' suggest normal filling pressures. No regional wall motion abnormalities noted. Right Ventricle Normal right ventricle. Normal systolic function. RVSP estimated to be 35 mmHg. Atria There is mild biatrial dilatation. Right atrial pressure estimated to be: 3 mmHg. Mitral Valve Normal mitral valve. Mild mitral regurgitation. No mitral stenosis. Tricuspid Valve Normal tricuspid valve. Moderate tricuspid regurgitation. No tricuspid stenosis. Aortic Valve Normal trileaflet aortic valve. No aortic regurgitation. No hemodynamically significant aortic stenosis. Pulmonic Valve Normal pulmonic valve. No pulmonic regurgitation. No pulmonic stenosis. Great Vessels Normal sized aortic root. Normal ascending aorta. Pericardium/Pleural No pericardial effusion. MMode/2D Measurements & Calculations LVIDd: 4.2 cm IVSd: 0.98 cm Ao root diam: 3.5 cm LVIDs: 3.0 cm LVPWd: 1.1 cm RVDd: 4.4 cm FS: 28.9 % LAV(MOD-bp): 70.7 ml LVAd ap4: 26.4 cm2 SV(MOD-sp4): 39.3 ml LAV(MOD-bp) Indexed: 36.5 ml/m2 LVLd ap4: 8.2 cm SI(MOD-sp4): 20.3 ml/m2 LAV(MOD-sp2): 84.8 ml EDV(MOD-sp4): 70.2 ml LAV(MOD-sp4): 58.2 ml EDV(sp4-el): 72.2 ml LVAs ap4: 15.7 cm2 LVLs ap4: 6.9 cm ESV(MOD-sp4): 30.9 ml ESV(sp4-el): 30.3 ml EF(MOD-sp4): 56.0 % EF(sp4-el): 58.0 % SV(sp4-el): 41.9 ml LA A4 area: 21.5 cm2 LA dimension(2D): 4.5 cm RA A4 area: 24.1 cm2 TAPSE: 1.5 cm Doppler Measurements & Calculations MV E max pro: 61.5 cm/sec Lat Peak E' Pro: 13.9 cm/sec Med Peak E' Pro: 11.5 cm/sec E/E' lat: 4.4 E/E' med: 5.4 Ao V2 max: 99.7 cm/sec LV V1 max: 70.2 cm/sec PA V2 max: 89.5 cm/sec Ao max P.0 mmHg LV V1 max P.0 mmHg Ao V2 mean: 73.2 cm/sec LV V1 mean P.1 mmHg Ao mean P.4 mmHg LV V1 mean: 47.7 cm/sec Ao V2 VTI: 20.5 cm LV V1 VTI: 13.9 cm AV (velocity ratio): 0.68 TR max pro: 282.5 cm/sec TR max P.9 mmHg ECHO/Echo Complete Interpretation Summary Normal-sized left ventricle Normal left ventricular systolic function with EF: 56% by Gaitan's biplane Diastolic function indeterminate due to atrial fibrillation Normal RV systolic function Moderate tricuspid regurgitation Ordering Physician: Ahmet Wilson Referring Physician: [facility] Performed By: Parvin Berger RDCS, RVT
--- OUTSIDE RECORDS SUMMARY | 2025-01-04 09:05 | XMS RPT_ITS | CCD ---
Author Organization [facility] Care Team Providers Care Library Circulation Department Chief Name Role Phone Moshe Junior Unavailable Unavailable PROVIDER, UNKNOWN Unavailable Unavailable No, PCP Unavailable Unavailable Anitra Noyola Unavailable Unavailable Unavailable Dr. Seth Lancaster DO Attending Physician Anisha BHATT, Dr. Ann Emergency Departmen t Physician [place], [place] Primary Care Physician Lori Presley MD, Dr. Lebron Attending Physician Ivan GUERRERO, Dr. Lebron Emergency Department Phys ician Anisha BHATT, Dr. Ann Attending Physician Anisha BHATT, Dr. Ann Emergency Departmen t Physician [place] Primary Care Physician Lori Presley MD, Dr. Lebron Attending Physician [phone] Ivan GUERRERO, Dr. Lebron Emergency Department Phys ician [place] Primary Care Physician Unavailab wooten [place], [place] Referring Provider Unavailable Dr. Ahmet Wilson DO Attending Physician [place] Referring Unavailable Ahmet Wilson Attending Unavailable [facility] Primary Care Unavailable Ahmet Wilson Attending Unavailable Ahmet Wilson Referring Unavailable [facility] Primary Care Unavailable Chintan Carmona Attending Unavailable Anitra Webb Primary Care Unavailable Anitra Webb Referring Unavailable Jasper Bucio Attending Unavailable Tracey, Naitra Primary Care Unavailable [facility] Primary Care Unavailable Seth Lancaster Attending [place], [place] Primary Care Unavailable Bernardino Love Attending Unavailable Allergies Allergy Classification Reported Allergen(s) Allergy Type Date of Onset Reaction(s) Facility (3 sources) POISON PIEDAD EXTRACT Drug Allergy 02-08-2021 [facility] Comment on above: and blistering (1 source) poison piedad extract Drug allergy (disorder) 12-06-2024 [facility] Repository Medications Current Medications Medication Drug Class(es) Dates Sig (Normalized) Sig (Original) apixaban 5 mg oral tablet (2 sources) Factor Xa Inhibitor Start: 11-21-2024 take 1 tablet by mouth twice daily atorvastatin 40 mg oral tablet (3 sources) HMG-CoA Reductase Inhibitor Start: 07-31-2020 take 1 tablet by mouth at bedtime cholecalciferol 0.05 mg oral capsule (5 sources) Vitamin D Start: 03-11-2016 take 1 capsule by mouth once daily Vitamin D3 50 MC G (2000 UT) Oral Tablet Quantity: 0 Refills: 0 Ordered: 19-May-2017 DO Active hydroCHLOROthiazide 25 mg or al tablet (8 sources) Thiazide Diuretic Start: 10-01-2019 Start: 10-01-2019 take 12.5 mg by mout h once daily Hydrochlorothiazide Active 12.5 MG PO DAILY October 01, 2019 8:28am Start: 03-11-2016 End: 10-01-2019 take 1 tablet by mouth once daily Hydrochlorothiazide 25 MG tablet Discontinued 25 mg PO DAILY March 11, 2016 12:00am October 01, 2019 7:32am take 1 tablet by oswaldo th once daily hydroCHLOROthiazide 12.5 MG Oral Tablet TAKE 1 TABLET DAILY. Quantity: 90 Refills: 1 Ordered: 19-May-2017 DO Active metoprolol tartrate 25 mg oral tablet (11 sources) beta-Adrenergic Yessenia Start: 07-31-2020 take 1 tablet by mouth twice daily Start: 10-01-2019 End: 07-31-2020 Metoprolol Tartrate 50 mg ta blet Discontinued 25 mg PO TWICE A DAY October 01, 2019 7:28am July 31, 2020 2:28pm Start: 10-01-2019 End: 07-31-2020 take 25 mg by mouth twice daily Metoprolol Tartrate Di scontinued 25 MG PO TWICE A DAY October 01, 2019 8:28am July 31, 2020 3:28pm Start: 03-11-2016 End: 10-01-2019 take 1 tablet by mouth twice daily Metoprolol Tartrate 50 MG tablet Discontinued 50 mg PO TWICE A DAY March 11, 2016 12:00am October 01, 2019 7:32am omeprazole 20 mg delayed release oral capsule (5 sources) Proton Pump Inhibitor Start: 07-22-2020 take 1 capsule by mouth once daily Omeprazole 20 MG Oral Capsule Delayed Release Quantity: 0 Refills: 0 Ordered: 02-Aug-2019 DO Active microencapsulated potassium chloride 10 meq extended release oral tablet (5 sources) Start: 03-11-2016 take 1 tablet by oswaldo th once daily Potassium Chlori de [place]ys ER 10 MEQ Oral Tablet Extended Release Quantity: 0 Refills: 0 Ordered: 19-May-2017 DO Active sertraline 50 mg oral tablet (9 sources) Serotonin Reuptake Inhibitor Start: 12-06-2024 take 1 tablet by mouth once daily Start: 07-31-2020 End: 05-25-2024 take 2 tablets by mouth once daily Sertraline 100 mg tablet Discontinued 200 mg PO DAILY July 31, 2020 2:27pm May 25, 2024 8:00am Start: 07-31-2020 take 200 mg by mouth once kim y Sertraline Active 200 MG PO DAILY July 31, 2020 3:27pm Start: 10-01-2019 End: 07-31-2020 take 1 tablet by mouth once daily Sertraline 100 mg tablet Discontinued 100 mg PO DAILY September 30, 2019 11:00pm July 31, 2020 2:29pm Completed/Discontinued Medications Medication Drug Class(es) Dates Sig (Normalized) Sig (Original) aspirin 81 mg delayed release oral tablet (3 sources) Platelet Aggregation Inhibitor, Nonsteroidal Anti-inflammatory Drug Start: 1 End: 5 take 1 tablet by mouth once daily Aspirin 81 mg tablet,delayed release (DR/EC) Discontinued 81 mg PO DAILY 1 0 July 30, 2020 11:00pm May 25, 2024 8:00am methylPREDNISolone 4 mg oral tablet (3 sources) Corticosteroid Start: 0 End: 1 take 1 tablet by mouth once Methylprednisolone (Medrol (Wade)) 4 mg tablets,dose pack Discontinued 0 PO per package directions 21 0 September 30, 2019 11:00pm July 31, 2020 2:29pm PO PER PKG DIR prazosin 1 mg oral capsule (8 sources) alpha-Adrenergic Yessenia Start: take 2 mg by mouth at bedtime Prazosin Active 2 MG PO AT BEDTIME July 31, 2020 3:27pm Start: 10-01-2019 End: 11-26-2024 take 1 capsule by mouth at bedtime Prazosin 1 mg capsule Discontinued 2 mg PO AT BEDTIME July 31, 2020 2:27pm November 26, 2024 11:15am Prazosin HCl - 1 MG Oral Capsule TAKE 2 CAPSULE Quantity: 0 Refills: 0 Ordered: 09-Apr-2020 DO Active rosuvastatin calcium 40 mg oral tablet (2 sources) HMG-CoA Reductase Inhibitor Start: 04-23-2020 take 1 tablet by mouth once daily Rosuvastatin Calcium 40 MG Oral Tablet TAKE 1 TABLET BY MOUTH EVERY DAY Quantity: 90 Refills: 3 Ordered: 14-May-2020 Anitra Noyola DO Start : 23-Apr-2020 Active simvastatin 5 mg oral tablet (5 sources) HMG-CoA Reductase Inhibitor Start: 05-25-2024 End: 11-26-2024 take 1 tablet by mouth once daily Simvastatin 5 mg tablet Discontinued 5 mg PO daily May 24, 2024 11:00pm November 26, 2024 11:14am Start: 03-11-2016 End: 07-31-2020 take 1 tablet by mouth at bedtime Simvastatin 40 MG tablet Discontinued 40 mg PO AT BEDTIME March 11, 2016 12:00am July 31, 2020 2:29pm Problems Active Problems Problem Classification Problem Date Documented Date Episodic/Chronic Anxiety disorders (4 sources) Mixed anxiety and depressive disorder; Translations: [Anxiety state, unspecified] 09-06-2021 Chronic Cancer of prostate (7 sources) Personal history of malignant neoplasm of prostate; Translations: [History of malignant neoplasm of prostate] Onset: 2017 Resolved: 08-02-2019 07-22-2020 Episodic Cardiac dysrhythmias (10 sources) Atrial fibrillation; Translations: [Unspecified atrial fibrillation] Onset: 12-13-2024 12-03-2024 Chronic Comment on above: - [id number]: ~6, asymptomatic with no cardiac symptoms- Atrial fibrillation was recently discovered in 11/2024; he was noted to have sinus bradycardia as his resting heart rate in 2019 in 2020. During a stress test he was able to achieve 86% of max heart rate, despite having sinus bradycardia- Currently on metoprolol tartrate 25 mg twice daily, previously on rate-control- Anticoagulation: Eliquis 5 mg twice daily- Ventricular rate today: 71 Coronary atherosclerosis and other heart disease (5 sources) Coronary arteriosclerosis; Translations: [Coronary atherosclerosis of unspecified type of vessel, quinault or graft] Onset: 12-06-2024 12-06-2024 Chronic Comment on above: -coronary artery ravi cium score of 2197 in 05/2020- Severe coronary artery disease seen on chest CTA in 11/2024- High-sensitivity troponin in 11/2024: , , 11- SPECT negative for ischemia in 2020- Preserved biventricular function on echocardiogram in 2020 Disorders of lipid metabolism (8 sources) Hyperlipidemia; Translations: [Other and unspecified hyperlipidemia] 12-03-2024 Chronic Comment on above: - Goal LDL at least below 70, in light of significant coronary artery calcifications- 11/2024 LDL: 117 Esophageal disorders (5 sources) Gastroesophageal reflux disease; Translations: [Esophageal reflux] 07-22-2020 Chronic Essential hypertension (8 sources) Hypertensive disorder; Translations: [Unspecified essential hypertension] Onset: 12-06-2024 12-03-2024 Chronic Comment on above: -BP~135/80 today in clinic Joint disorders and dislocations; trauma-related (2 sources) Loose body in right knee joint; Translations: [Loose body in knee, right knee] 05-25-2024 Chronic Malaise and fatigue (4 sources) Fatigue; Translations: [Other malaise and fatigue] 12-04-2024 Episodic Osteoarthritis (2 sources) Osteoarthritis of right knee joint; Translations: [Unilateral primary osteoarthritis, right knee] 05-25-2024 Chronic Other connective tissue disease (1 source) Prepatellar bursitis; Translations: [Prepatellar bursitis, right knee] Episodic Other connective tissue disease (2 sources) Iliotibial band friction syndrome; Translations: [Iliotibial band syndrome, unspecified leg] 05-25-2024 Episodic Other connective tissue disease (2 sources) Prepatellar bursitis of right knee; Translations: [Prepatellar bursitis, right knee] 02-16-2021 Episodic Other infections; including parasitic (2 sources) History of herpes zoster; Translations: [Personal history of other infectious and parasitic diseases] Episodic Other nervous system disorders (2 sources) Impairment of balance; Translations: [Other symptoms involving nervous and musculoskeletal systems] Episodic Other nervous system disorders (2 sources) Tremor; Translations: [Abnormal involuntary movements] Episodic Other nervous system disorders (2 sources) Dysarthria; Translations: [Dysarthria and anarthria] 12-04-2024 Episodic Other non-traumatic joint disorders (2 sources) [...] conditions (not mental disorders or infectious disease) (8 sources) Patient encounter status; Translations: [Special screening for other specified conditions] 07-22-2020 Episodic Peripheral and visceral atherosclerosis (2 sources) Atherosclerosis of aorta; Translations: [Atherosclerosis of aorta] Chronic Comment on above: noted on 08/14/2020 EC HO; Residual codes; unclassified (2 sources) Memory impairment; Translations: [Memory loss] Episodic Residual codes; unclassified (2 sources) Transient altered mental status; Translations: [Disorientation, unspecified] 12-04-2024 Episodic Residual codes; unclassified (1 source) Disorientation, unspecified; Translations: [Disorientation, unspecified] Onset: 11-29-2024 Episodic Spondylosis; intervertebral disc disorders; other back problems (5 sources) Lumbago with sciatica; Translations: [Sciatica] Onset: 11-28-2024 11-29-2024 Episodic Unclassified (2 sources) and/or your dag coater Varicose veins of lower extremity (2 sources) Varicose veins of lower extremity; Translations: [Asymptomatic varicose veins] Episodic Past or Other Problems Problem Classification Problem Date Documented Da te Episodic/Chronic Other non-traumatic joint disorders (3 sources) Pain in right knee; Translations: [Mechanical pain of right knee] Onset: 05-25-2024 05-25-2024 Episodic Unclassified (2 sources) h/o radiation 09-06-2021 Results Test Name Value Interpretation Reference Range Facility Cardiology Visit Reporton Cardiology Visit Report [facility] [address] [place] [address] OFFICE VISIT Date of Service: 12/06/24 MR#: [id number] Acct: [id number] Name: BENJAMIN LEOS Rep #: [id number] : 1945 Provider: Dr. Ahmet salgado DO Age/Sex: 79/M Location: [facility] Status: Signed HPI HPI History of Present Illness Details: Mr. Leos is a 79-year-old male with past medical history of atrial fibrillation (on metoprolol 25 mg twice daily and Eliquis 5 mg twice daily)who presents to cardiology clinic today for follow-up, stemming from a ED visit. Regarding his past medical history, it is significant for a coronary artery calcium score of 2197 in 05/2020. Patient followed with cardiology after that, where SPECT showed no evidence of significant ischemia and echocardiogram showed preserved biventricular function with no hemodynamically significant valvular disease. His home medications are remarkable for: Atorvastatin 40 mg daily metoprolol tartrate 25 mg twice, daily hydrochlorothiazide 12.5 mg daily, and Eliquis 5 mg twice daily. Patient presented to the [facility] ED on November 26, 2024. He was complaining of fatigue, lethargy, dysarthria, and disorientation. CT head was unremarkable. It was thought that patient could possibly be having a TIA. Patient was also noted to be in atrial fibrillation during his visit, but he was also in atrial fibrillation during his ED visit on November 21, 2024, where he complained of back pain and CT angiography was negative for dissection or acute pathology. Patient seen today companied by . He admits he feels very well and has no acute complaints. In the emergency room, that was the first time he was told he had atrial fibrillation and was unaware previously. Regarding his ED presentation for fatigue, he notes he was given morphine for his back pain and within 8 hours began to feel the symptoms. He denies all cardiac symptoms. Intake Vital Signs 11/21/24 10:31 11/26/24 10:58 12/06/24 09:06 Height 5 ft 9 in 5 ft 9 in 5 ft 9 in Weight: 172 lb BMI 25.4 BP 135/83 H Blood Pressure Location Lt brachial Position Sitting Respiration 16 Pulse 82 Pulse Source NIBP Intake Visit Reasons: S/P [facility] 11/21 ([facility] ER) Healthcare Customer Service Required: No Is patient in pain?: No Allergies poison piedad extract Allergy (Verified 12/06/24 09:03) Hives Medications ???Medication ???Instructions ???Recorded ???Confirmed ???Type cholecalciferol (vitamin D3) 50 2,000 unit PO DAILY 03/11/1612/06 History mcg (2,000 unit) capsule potassium chloride 10 mEq 10 meq PO DAILY 03/11/16 12/06/24 History tablet,extended release(part/cryst) hydrochlorothiazide 25 mg tablet 12.5 mg PO DAILY 10/01/19 12/06/24 History omeprazole 20 mg capsule,delayed 20 mg PO DAILY 07/22/20 12/06/24 H istory release atorvastatin 40 mg tablet 40 mg PO QHS 07/31/20 12/06/24 His tory metoprolol tartrate 25 mg tablet 25 mg PO BID 07/31/20 12/06/24 His tory apixaban 5 mg tablet (Eliquis) 5 mg PO BID heart 30 days #60 tabs 11/21/24 12/06/24 Rx sertraline 50 mg tablet 50 mg PO QDAY 12/06/24 12/06/24 Hi story Ejection fraction %: 60 Have you fallen in the past year?: No [facility] Medical History (Updated 12/06/24 @ 09:[address] Ahmet Wilson, DO) Atrial fibrillation Elevated coronary artery calcium score Hyperlipidemia Essential (primary) hypertension GERD (gastroesophageal reflux disease) Trigger finger h/o radiation PTSD (post-traumatic stress disorder) Arthritis Elevated PSA History of prostate cancer Surgical History (Updated 12/03/24 @ 14:25 by Michaela Sorto) History of cataract surgery History of carpal tunnel release H/O: vasectomy H/O prostatectomy Family History Father Diabetes Hypertension Father Emphysema Mother Hypertension Breast cancer Brother No problems noted. Brother Cancer CVA (cerebral vascular accident) Brother Cancer Social History (Updated 12/03/24 @ 14:18 by Michaela Sorto) household members: significant other Smoking Status: Never smoker alcohol intake: current caffeine: Yes what type of physical activity do you participate in: none do you feel safe at home: Yes ROS Const Const: Negative for fatigue or weakness Eyes Eyes: Negative for change in vision ENT ENT: Negative for dizziness or balance problems Cardio Chest Pain: No Palpitations: No Edema: None Resp Respiratory: Negative for SOB with activity, SOB at rest or SOB orthopnea SOB lying down GI GI: Negative nausea or heartburn Musc Musc: Negative for balance problems Neuro Neuro: Negative for dizziness, lightheadedness, near syncope, syncope or weakness Endo Endo: Negative for fatigue ROS Narrat (more content not included)... Normal [facility] 12 Lead EKGon 11-26-2024 12 Lead EKG [facility] [address] [place] [id number] 12 Lead EKG 11/26/24 1156 MR#: [id number] Acct: [id number] Name: BENJAMIN LEOS Rep #: [id number] : 1945 79 From: Paul Dasilva MD Attending Dr: Status: DEP ER Ordering Dr: Bernardino Love MD Date: 11/26/24 Location: ED Sex: M C Admitted: Test Reason : GENERAL Blood Pressure : */* mmHG Vent. Rate : 66 BPM Atrial Rate : * BPM P-R Int : * ms QRS Dur : 84 ms QT Int : 400 ms P-R-T Axes : * -16 11 degrees QTcB Int : 419 ms Atrial fibrillation Abnormal ECG Confirmed by Paul Dasilva ([id number]), market editor HEIDY DINH ([id number]) on 11/27/2024 11:11:56 AM Referred By: Confirmed By: Paul Dasilva 11/27/24 1111 Date Paul Dasilva MD CC: Dr. Bernardino Love MD; [facility] Signed Normal [facility] Absolute lymphocyte countOrd ered By: Bernardino Love on 11-26-2024 Lymphocytes Auto (Unsp spec) [#/Vol] 0.56 10*3/uL Low 0.83-4.51 [facility] Absolute neutrophil countOrd ered By: Bernardino Love on 11-26-2024 Neutrophils (Bld) [#/Vol] 6.0 10*3/uL 2.0-7.7 [facility] Anion gap in Serum or Plasma Ordered By: Bernardino Love on 11-26-2024 Anion gap [Moles/Vol] 11 mmol/L - [facility] Automated lymphocyte count a s percentage of total leukocytesOrdered By: Bernardino Love on 11-26-2024 Lymphocytes/100 WBC Auto (Unsp spec) 7.9 % Low - [facility] BUN/creatinine ratioOrdered By: Bernardino Love on 11-26-2024 Urea nitrogen/Creatinine [Mass ratio] 15.0 mg/mg 11-26 [facility] Basophil percentageOrdered B y: Bernardino Love on 11-26-2024 Basophils/100 WBC (Bld) 0.3 % 0-1 [facility] Bilirubin Test strip Ql (U)O rdered By: Bernardino Love on 11-26-2024 Bilirubin Ql (U) Negative Negative [facility] Bilirubin, totalOrdered By: Bernardino Love on 11-26-2024 Bilirubin [Mass/Vol] 0.98 mg/dL 0.00-1.30 [facility] Brain/Head without Contrasto n 11-26-2024 Brain/Head without Contrast [facility] [address] [place], [place] [id number] Brain/Head without Contrast MR#: [id number] Acct: [id number] Name: BENJAMIN LEOS Rep #: [id number] : 1945 M 79 From: Asa Dobson MD PCP: [facility] Status: REG ER Study: Brain/Head without Contrast Date of Exam: 11/08 Exam# [id number] Ordering Dr: Bernardino Love MD EXAM: NONCONTRAST CT SCAN OF THE HEAD CLINICAL HISTORY: Confusion, dysarthria COMPARISON: None TECHNIQUE: Serial axial series through the head were obtained without contrast. 2-D coronal and sagittal reformats were then obtained. FINDINGS: Brain: There is no acute large territorial infarct, intracranial hemorrhage, midline shift or mass effect. There are atherosclerotic vascular calcifications involving the bilateral carotid siphons. The sella and pineal gland regions appear unremarkable. There is no evidence of cerebellar tonsillar herniation. Ventricles: There is no acute hydrocephalus. Basilar cisterns are patent. Paranasal sinuses: Well-aerated Mastoid air cells: Well-aerated. Calvarium: The bony calvarium is intact. Orbits: The bilateral globes are symmetric, without retrobulbar compressive mass lesion or hemorrhage. CT/Brain/Head without Contrast IMPRESSION: No acute intracranial pathology. Reading Location: [facility] CC: Dr. Bernardino Love MD; [facility] Waste Salvager: Signed Normal [facility] CBC W/Diff, Automatedon 10-2 0-2024 Absolute Lymph 0.56 X10 3/uL Low 0.83-4.51 [facility] Comment on above: Performed By: #### L [id number] #### [facility] [address] [place], [address] Absolute Neut 6.0 X10 3/uL Normal 2.0-7.7 [facility] Comment on above: Performed By: #### L [id number] #### [facility] [address] [place], [address] Basophils/100 WBC (Bld) 0.3 % Normal 0-1 [facility] Comment on above: Performed By: #### L [id number] #### [facility] [address] [place], [address] Eosinophils/100 WBC (Bld) 1.0 % Normal 0-5 [facility] Comment on above: Performed By: #### L [id number] #### [facility] [address] [place], [address] Erythrocyte distribution width (RBC) [Ratio] 13.1 % Normal 11.6-14.6 [facility] Comment on above: Performed By: #### L [id number] #### [facility] [address] [place], [address] Hematocrit (Bld) [Volume fraction] 45.0 % Normal 40-54 [facility] Comment on above: Performed By: #### L [id number] #### [facility] [address] [place], [address] Hemoglobin (Bld) [Mass/Vol] 15.6 g/dL Normal 13.0-16.5 [facility] Comment on above: Performed By: #### L [id number] #### [facility] [address] [place], [address] IG% 0.300 Normal 0.0-0.9 [facility] Comment on above: Result Comment: IG% - Immature Granulocytes (promyelocytes, myelocytes and metamyelocytes) > 1% indicates that a LEFT SHIFT is Present. Performed By: #### L [id number] #### [facility] [address] [place], [address] Lymphocytes/100 WBC (Bld) 7.9 % Low 19-41 [facility] Comment on above: Performed By: #### L [id number] #### [facility] [address] [place], [address] MCH (RBC) [Entitic mass] 30.8 pg Normal 27.0-32.0 [facility] Comment on above: Performed By: #### L [id number] #### [facility] [address] [place], [address] MCHC (RBC) [Mass/Vol] 34.7 g/dL Normal 32-36 [facility] Comment on above: Performed By: #### L [id number] #### [facility] [address] [place], [address] MCV (RBC) [Entitic vol] 88.8 fL Normal 80-94 [facility] Comment on above: Performed By: #### L [id number] #### [facility] [address] [place], [address] Monocytes/100 WBC (Bld) 5.1 % Normal 0-10 [facility] Comment on above: Performed By: #### L 499.0043 #### [facility] [address] [place], [address] Neutrophils/100 WBC (Bld) 85.4 % High 47-70 [facility] Comment on above: Performed By: #### L [id number] #### [facility] [address] [place], [address] Nucleated RBC (Bld) [#/Vol] 0 10*3/uL Normal 0-5 [facility] Comment on above: Performed By: #### L [id number] #### [facility] [address] [place], [address] Platelet mean volume (Bld) [Entitic vol] 10.6 fL Normal 6.2-12.0 [facility] Comment on above: Performed By: #### L [id number] #### [facility] [address] [place], [address] Platelets (Bld) [#/Vol] 181 10*3/uL Normal 150-450 [facility] Comment on above: Performed By: #### L 499.0043 #### [facility] [address] [place], [address] RBC (Bld) [#/Vol] 5.07 10*6/uL Normal 4.6-6.2 [facility] Comment on above: Performed By: #### L [id number] #### [facility] [address] [place], [place], [address] RDW SD 42.4 fl Normal 35.1-43.9 [facility] Comment on above: Performed By: #### L [id number] #### [facility] [address] [facility] [place], [address] WBC (Bld) [#/Vol] 7.1 10*3/uL Normal 4.4-11.0 [facility] Comment on above: Performed By: #### L [id number] #### [facility] [address] [facility] [place], [place], [id number] Carbon dioxide, total [Moles /volume] in Central venous bloodOrdered By: Bernardino Love on 11-26-2024 CO2 [Moles/Vol] 22.9 mmol/L 21.0-32.0 [facility] Chest PA and Lateralon 11-26 Chest PA and Lateral [facility] [address] [facility] [place], [place] [address] Chest PA and Lateral MR#: [id number] Acct: [id number] Name: BENJAMIN LEOS Rep #: [id number] : 1945 M 79 From: Ahmet Glover PCP: [facility] Hospital Status: REG ER Study: Chest PA and Lateral Date of Exam: 11/26/24 Exam# [id number] Ordering Dr: Bernardino Love MD PROCEDURE: CHEST PA AND LATERAL 11/26/2024 REASON FOR EXAM: GEN WEAKNESS TECHNIQUE: Procedure Code: RADCXR Modality: DX Procedure: Three-view CHEST PA AND LATERAL COMPARISON: Carry Out Clerk from the chest CT of 11/21/2024. RAD/Chest PA and Lateral IMPRESSION: Examination limited by hypoinflation, as well as patient motion of the lateral views. No acute pneumonic process is appreciated. No evidence of pulmonary edema. No pleural effusion or pneumothorax is seen. The cardiomediastinal silhouette is stable, without evidence of cardiomegaly. Rqme-hh-hrehdqdt degenerative changes of the visualized spine are also seen. No acute osseous change is noted. Reading Location: [id number] CC: Dr. Bernardino Love MD; [facility] Waste Salvager: Signed Normal [facility] Chloride assayOrdered By: Scotty Love on 11-26-2024 Chloride [Moles/Vol] 103 mmol/L 98-108 [facility] Comprehensive Metabolic Prof ilon 11-26-2024 Albumin [Mass/Vol] 4.2 g/dL Normal 3.4-4.8 [facility] Comment on above: Performed By: #### L 499.0043 #### [facility] [address] [place], [address] Albumin/Globulin [Mass ratio] 1.4 {ratio} Normal 0.9-2.4 [facility] Comment on above: Performed By: #### L 499.0043 #### [facility] [address] [place], [address] ALK PHOS 83 U/L Normal 40-129 [facility] Comment on above: Performed By: #### L 499.0043 #### [facility] [address] [place], [address] ALT [Catalytic activity/Vol] 27 U/L Normal <=46 [facility] Comment on above: Performed By: #### L 499.0043 #### [facility] [address] [place], [address] AST [Catalytic activity/Vol] 25 U/L Normal <=37 [facility] Comment on above: Performed By: #### L 499.0043 #### [facility] [address] [place], [address] Bilirubin [Mass/Vol] 0.98 mg/dL Normal 0.00-1.30 [facility] Comment on above: Performed By: #### L 499.0043 #### [facility] [address] [place], [address] BUN/CRE 15.0 RATIO Normal 10-20 [facility] Comment on above: Performed By: #### L 499.0043 #### [facility] [address] [place], [address] Calcium [Mass/Vol] 9.5 mg/dL Normal 7.6-11.0 [facility] Comment on above: Performed By: #### L 499.0043 #### [facility] [address] [place], [address] Chloride [Moles/Vol] 103 mmol/L Normal 98-108 [facility] Comment on above: Performed By: #### L 499.0043 #### [facility] [address] [place], [address] CO2 [Moles/Vol] 22.9 mmol/L Normal 21.0-32.0 [facility] Comment on above: Performed By: #### L 499.0043 #### [facility] [address] [place], [address] Creatinine [Mass/Vol] 0.87 mg/dL Normal 0.70-1.20 [facility] Comment on above: Performed By: #### L 499.0043 #### [facility] [address] [place], [address] ECRCL 69.98 ml/min Normal 50-250 [facility] Comment on above: Performed By: #### L 499.0043 #### [facility] [address] [place], [address] GAP 11 Normal 5-15 [facility] Comment on above: Performed By: #### L 499.0043 #### [facility] [address] [place], [address] GFR/1.73 sq M.predicted among non-blacks MDRD (S/P/Bld) [Vol rate/Area] 88 mL/min/{1.73_m2} Normal >60 [facility] Comment on above: Result Comment: mL/m in/1.73m2 CKD-EPI Creatinine Equation (2020) Performed By: #### L 499.0043 #### [facility] [address] [place], [address] Globulin (S) [Mass/Vol] 3.1 g/dL Normal 2.2-4.2 [facility] Comment on above: Performed By: #### L 499.0043 #### [facility] [address] [place], [address] Glucose [Mass/Vol] 109 mg/dL High 70-99 [facility] Comment on above: Performed By: #### L 499.0043 #### [facility] [address] [place], [address] Potassium [Moles/Vol] 4.0 mmol/L Normal 3.3-5.1 [facility] Comment on above: Performed By: #### L 499.0043 #### [facility] [address] [place], [address] Sodium [Moles/Vol] 138 mmol/L Normal 133-145 [facility] Comment on above: Performed By: #### L 499.0043 #### [facility] [address] [place], [address] T PROT 7.3 g/dL Normal 5.9-8.4 [facility] Comment on above: Performed By: #### L 499.0043 #### [facility] [address] [place], [address] Urea nitrogen [Mass/Vol] 13 mg/dL Normal 4-19 [facility] Comment on above: Performed By: #### L 499.0043 #### [facility] [address] [place], [address] Electrocardiogram reportOrde red By: Paul Dasilva on 11-26-2024 EKG study [facility] [address] [place] [address] 12 Lead EKG 11/26/24 1156 MR#: [id number] Acct: [id number] Name: BENJAMIN LEOS Rep #:[id number] : 1945 79 From: Paul pierre MD Attending Dr: Status: DEP E R Ordering Dr: Bernardino Love MD Date: 11/26/24 Location: ED Sex: M C Admitted: Test Reason : GENERAL Blood Pressure : */* mmHG Vent. Rate : 66 BPM Atrial Rate : * BPM P-R Int : * ms QRS Dur : 84 ms QT Int : 400 ms P-R-T Axes : * -16 11 degrees QTcB Int : 419 ms Atrial fibrillation Abnormal ECG Confirmed by Paul Dasilva ([id number]), market editor HEIDY DINH ([id number]) on 1:11:56 AM Referred By: Confirmed By: Paul Dasilva 11/27/24 1111 Date _ Paul Dasilva MD CC: Dr. Bernardino Love MD; [facility] ~ Signed [facility] Other Phone: Emergency Department Summary on 11-26-[address] [facility] Medical Records Department [address] [place] [address] Emergency Department Summary 11/26/24 MR#: [id number] Acct: [id number] Name: BENJAMIN LEOS Rep #: [id number] : 1945 79 From: Bernardino Love MD PCP: [facility] Status:REG ER Location: ED HPI History of Present Illness Chief Complaint: Confusion Informant: patient and spouse/S.O. Narrative Narrative: Patient is a 79-year-old male with a history of AFib presenting with fatigue, lethargy, disorientation, and slurred speech. Patient is accompanied by his who is supplementing history. - Symptoms began 2 days ago. - Reports feeling real tired, very lethargic, and a little confused at times. - Describes feeling disoriented and having difficulty with tasks he usually performs around the house. - notes slurred speech and slow movements, stating, I can't understand everything he's saying. - Denies any numbness, weakness, changes in vision, lightheadedness, chest discomfort, dyspnea, palpitations, emesis, diarrhea, or hematochezia. - Concerns began after starting Eliquis for newly diagnosed AFib; no other new medications. - Long-standing medications include simvastatin, metoprolol, hydrochlorothiazide, vitamin D, omeprazole, and potassium supplements. No changes in these lately. - No recent changes in metoprolol dosage; has been on it for years. - Scheduled to see a dag coater on the for further evaluation. [facility] Medical History Elevated coronary artery calcium score GERD (gastroesophageal reflux disease) Mixed hyperlipidemia Essential (primary) hypertension Trigger finger h/o radiation PTSD (post-traumatic stress disorder) Hypertension Hyperlipidemia Arthritis Elevated PSA History of prostate cancer Home Medications ???Medication ???Instructions ???Recorded ???Last Taken ???Type cholecalciferol (vitamin D3) 50 2,000 unit PO DAILY 03/11/1611/26 History mcg (2,000 unit) capsule potassium chloride 10 mEq 10 meq PO DAILY 03/11/16 11/25/24 History tablet,extended release(part/cryst) hydrochlorothiazide 25 mg tablet 12.5 mg PO DAILY 10/01/19 Unknown History omeprazole 20 mg capsule,delayed 20 mg PO DAILY 07/22/20 11/26/24 H istory release atorvastatin 40 mg tablet 40 mg PO QHS 07/31/20 11/25/24 His tory metoprolol tartrate 25 mg tablet 25 mg PO BID 07/31/20 11/26/24 His tory apixaban 5 mg tablet (Eliquis) 5 mg PO BID heart 30 days #60 tabs 11/21/24 11/26/24 Rx Allergy/AdvReac Type Severity Reaction Status Date / Time poison piedad extract Allergy Hives Verified 11/26/24 10:58 Family History Father Diabetes Hypertension Father Emphysema [...] do you feel safe at home: Yes ROS ROS ED Constitutional Constitutional ED: Reports fatigue and weakness; Denies chills or fever(s) Eyes Eyes: Denies change in vision or diplopia ENT ENT ED: Denies rhinorrhea or sore throat Cardiovascular Cardiovascular: Denies chest pain or palpitations Respiratory/Chest Respiratory/Chest: Denies cough or dyspnea Gastrointestinal Gastrointestinal: Denies abdominal pain, diarrhea, nausea or vomiting Genitourinary Genitourinary ED: Denies dysuria or hematuria Musculoskeletal Musculoskeletal: Denies back pain or neck pain Integumentary Denies abscess or rash Neurologic Neurologic: Reports as per HPI, abnormal speech and confusion; Denies headache(s), paresthesias or weakness Psychiatric Psychiatric: Denies anxiety or suicidal thoughts EXAM Physical Exam Const Vital Signs: 11/26/24 10:58 11/26/24 12:00 11/26/24 13:00 Temperature 97.8 F Temperature Source Oral Pulse Rate 69 66 68 Respiratory Rate 18 18 16 Blood Pressure 146/99 H 138/92 H 134/88 H Blood Pressure Mean 114 107 103 Pulse Ox 100 98 98 Oxygen Delivery Method Room Air 11/26/24 14:00 Temperature Temperature Source Pulse Rate 73 Respiratory Rate 19 H Blood Pressure 138/92 H Blood Pressure Mean 107 Pulse Ox 99 Oxygen Delivery Method Positive well nourished and well developed General Appearance ED: well developed and NAD HEENT Reports moist m (more content not included)... Normal [facility] Eosinophil percentageOrdered By: Bernardino Love on 11-26-2024 Eosinophils/100 WBC (Bld) 1.0 % 0-5 [facility] Erythrocyte distribution wid th ratioOrdered By: Bernardino Love on 11-26-2024 Erythrocyte distribution width (RBC) [Ratio] 13.1 % 11.6-14.6 [facility] Erythrocyte distribution wid th standard deviationOrdered By: Bernardino Love on 11-26-2024 Erythrocyte distribution width (RBC) [Ratio] 42.4 fl 35.1-43.9 [facility] Glomerular filtration rate ( GFR) estimation/1.73 sq m using serum, plasma, or whole bOrdered By: Bernardino Love on 11-26-2024 GFR/1.73 sq M.predicted among non-blacks MDRD (S/P/Bld) [Vol rate/Area] 88 mL/min/{1.73_m2} >60 [facility] Comment on above: mL/min/1.73m2 CKD-EP I Creatinine Equation (2020) Hematocrit Auto (Bld) [Volum e fraction]Ordered By: Bernardino Love on 11-26-2024 Hematocrit (Bld) [Volume fraction] 45.0 % 40-54 [facility] Hemoglobin measurementOrdere d By: Bernardino Love on 11-26-2024 Hemoglobin (Bld) [Mass/Vol] 15.6 g/dL 13.0-16.5 [facility] Immature granulocytes/100 WB C Auto (Bld)Ordered By: Bernardino Love on 11-26-2024 Immature granulocytes/100 WBC (Bld) 0.300 % 0.0-0.9 [facility] Comment on above: IG% - Immature Granu locytes (promyelocytes, myelocytes and metamyelocytes) > 1% indicates that a LEFT SHIFT is Present. Ketones Test strip Ql (U)Ord ered By: Bernardino Love on 11-26-2024 Ketones Ql (U) Negative Negative [facility] L501.4021on 11-26-2024 Trop T High Sen 10 ng/L Normal <=22 [facility] Comment on above: Performed By: #### L 499.0043 #### [facility] [place], [address] Laboratory - Chemistry and C hemistry - challengeOrdered By: Bernardino Love on 11-26-2024 AST [Catalytic activity/Vol] 25 U/L <38 [facility] MCV (mean corpuscular volume ) determinationOrdered By: Bernardino Love on 11-26-2024 MCV (RBC) [Entitic vol] 88.8 fL 80-94 [facility] Mean corpuscular hemoglobin (MCH) determinationOrdered By: Bernardino Love on 11-26-2024 MCH (RBC) [Entitic mass] 30.8 pg 27.0-32.0 [facility] Mean corpuscular hemoglobin concentration (MCHC) determinationOrdered By: Bernardino Love on 11-26-2024 MCHC (RBC) [Mass/Vol] 34.7 g/dL 32-36 [facility] Mean platelet volume determi nationOrdered By: Bernardino Love on 11-26-2024 Platelet mean volume (Bld) [Entitic vol] 10.6 fL 6.2-12.0 [facility] Microscopic analysis of urin e for red blood cells (RBC)Ordered By: Bernardino Love on 11-26-2024 Microscopic analysis of urine for red blood cells (RBC) 0 SEEN /hpf 0-5 [facility] Monocyte percentageOrdered B y: Bernardino Love on 11-26-2024 Monocytes/100 WBC (Bld) 5.1 % 0-10 [facility] Mucus LM Ql (Urine sed)Order ed By: Bernardino Love on 11-26-2024 Mucus Ql (Urine sed) RARE /hpf [facility] Neutrophil percentageOrdered By: Bernardino Love on 11-26-2024 Neutrophils/100 WBC (Bld) 85.4 % High 47-70 [facility] Nitrite Test strip Ql (U)Ord ered By: Bernardino Love on 11-26-2024 Nitrite Ql (U) Negative Negative [facility] Nucleated red blood cell per centageOrdered By: Bernardino Love on 11-26-2024 Nucleated RBC/100 WBC (Bld) [Ratio] 0 % 0-5 [facility] Platelet countOrdered By: Scotty Love on 11-26-2024 Platelets (Bld) [#/Vol] 181 10*3/uL 150-450 [facility] Potassium measurement (mass/ volume)Ordered By: Bernardino Love on 11-26-2024 Potassium (Unsp spec) [Mass/Vol] 4.0 mmol/L 3.3-5.1 [facility] Protein Test strip Ql (U)Ord ered By: Bernardino Love on 11-26-2024 Protein Ql (U) Negative Negative [facility] RBC Auto (Bld) [#/Vol]Ordere d By: Bernardino Love on 11-26-2024 RBC (Bld) [#/Vol] 5.07 10*6/uL 4.6-6.2 [facility] Serum creatinine measurement (mass/volume)Ordered By: Bernardino Love on 11-26-2024 Creatinine [Mass/Vol] 0.87 mg/dL 0.70-1.20 [facility] Serum globulin measurementOr dered By: Bernardino Love on 11-26-2024 Globulin (S) [Mass/Vol] 3.1 g/dL 2.2-4.2 [facility] Serum glucose measurement (m ass/volume)Ordered By: Bernardino Love on 11-26-2024 Glucose [Mass/Vol] 109 mg/dL High 70-99 [facility] Serum or plasma alanine finn otransferase (ALT) measurementOrdered By: Bernardino Love on 11-26-2024 ALT [Catalytic activity/Vol] 27 U/L <47 [facility] Serum or plasma albumin karlene urement (mass/volume)Ordered By: Bernardino Love on 11-26-2024 Albumin [Mass/Vol] 4.2 g/dL 3.4-4.8 [facility] Serum or plasma albumin/glob ulin mass ratioOrdered By: Bernardino Love on 11-26-2024 Albumin/Globulin [Mass ratio] 1.4 {ratio} 0.9-2.4 [facility] Serum or plasma alkaline benita sphatase measurementOrdered By: Bernardino Love on 11-26-2024 ALP [Catalytic activity/Vol] 83 U/L 40-129 [facility] Serum or plasma calcium karlene urement (mass/volume)Ordered By: Bernardino Love on 11-26-2024 Calcium [Mass/Vol] 9.5 mg/dL 7.6-11.0 [facility] Serum or plasma urea nitroge n measurement (mass/volume)Ordered By: Bernardino Love on 11-26-2024 Urea nitrogen [Mass/Vol] 13 mg/dL 4-19 [facility] Sodium levelOrdered By: Robert Love on 11-26-2024 Sodium [Moles/Vol] 138 mmol/L 133-145 [facility] Squamous epithelial cells de tection in urine sediment by light microscopyOrdered By: Bernardino Love on 11-26-2024 Epithelial cells.squamous LM Ql (Urine sed) 0 SEEN /hpf 0-5 [facility] Total proteinOrdered By: Ovidio Love on 11-26-2024 Protein [Mass/Vol] 7.3 g/dL 5.9-8.4 [facility] Troponin T HS 2 HRon 025 Trop T High Sen 11 ng/L Normal <=22 [facility] Comment on above: Performed By: #### L 499.0042 #### [facility] [address] [place], [place], [id number] Troponin T HS 4 HRon 025 Trop T High Sen Normal <=22 [facility] Comment on above: Result Comment: Canc elled via OM: Order cancelled - Patient discharged Performed By: #### L 499.0043 #### [facility] [address] [place], [place], [id number] Troponin T.cardiac [Mass/vol ume] in Serum or Plasma by High sensitivity methodOrdered By: Bernardino Love on 11-26-2024 Troponin T.cardiac High sensitivity method [Mass/Vol] 11 ng/L <22 [facility] Troponin T.cardiac High sensitivity method [Mass/Vol] 10 ng/L Invalid Interpretation Code <22 [facility] Comment on above: Delta: 12 on 5-1100 Urinalysis, Completeon 11-26 Mucus Ql (Urine sed) RARE Normal [facility] Comment on above: Order Comment: CLEAN CATCH Performed By: #### L 499.0043 #### [facility] [address] [place], [place], [id number] BACTERIA 0 SEEN Normal None Seen [facility] Comment on above: Order Comment: CLEAN CATCH Performed By: #### L 499.0043 #### [facility] [address] [place], [place], [address] EPI,SQUAMOUS 0 SEEN Normal 0-5 [facility] Comment on above: Order Comment: CLEAN CATCH Performed By: #### L 499.0043 #### [facility] [address] [place], [place], [id number] RBC 0 SEEN Normal 0-5 [facility] Comment on above: Order Comment: CLEAN CATCH Performed By: #### L 499.0043 #### [facility] [address] [place], [address] WBC 0 SEEN Normal 0-5 [facility] Comment on above: Order Comment: CLEAN CATCH Performed By: #### L 499.0043 #### [facility] [address] [place], [place], [id number] Urine clarityOrdered By: Ovidio Love on 11-26-2024 Clarity (U) Clear Clear [facility] Urine color determinationOrd ered By: Bernardino Love on 11-26-2024 Color (U) Yellow Yellow [facility] Urine glucose detectionOrder ed By: Bernardino Love on 11-26-2024 Glucose Ql (U) Normal mg/dl Normal [facility] Urine leukocyte esterase det ection by dipstickOrdered By: Bernardino Love on 11-26-2024 Leukocyte esterase Test strip Ql (U) Negative Negative [facility] Urine pHOrdered By: Bernardino Love on 11-26-2024 pH (U) 7.0 [pH] 5.0 - 8.0 [facility] Urine sediment bacteria coun t by microscopy (number/high power field)Ordered By: Bernardino Love on 11-26-2024 Bacteria LM.HPF (Urine sed) [#/Area] 0 /[HPF] None Seen [facility] Urine specific gravity measu rementOrdered By: Bernardino Love on 11-26-2024 Specific gravity (U) [Rel density] 1.010 1.002-1.030 [facility] Urine urobilinogen measureme ntOrdered By: Bernardino Love on 11-26-2024 Urobilinogen Ql (U) Normal mg/dl Normal [facility] White blood cell (WBC) count Ordered By: Bernardino Love on 11-26-2024 WBC (Bld) [#/Vol] 7.1 10*3/uL 4.4-11.0 [facility] White blood cell countOrdere d By: Bernardino Love on 11-26-2024 White blood cell count 0 SEEN /hpf 0-5 [facility] 12 Lead EKGon 11-21-2024 12 Lead EKG [facility] [address] [place] [address] 12 Lead EKG 11/21/24 1042 MR#: [id number] Acct: [id number] Name: BENJAMIN LEOS Rep #: [id number] : 1945 79 From: Jasper Bucio MD [...] ECG Confirmed by ITZEL GUERRERO, JASPER ([id number]), market editor CASSANDRA PETERSEN ([id number]) on 11/22/2024 10:00:30 AM Referred By: Confirmed By: JASPER BUCIO MD 11/22/24 1000 Date Jasper Bucio MD CC: Dr. Seth Lancaster, ; [facility] Signed Normal [facility] Absolute lymphocyte countOrd ered By: Seth Lancaster on 11-21-2024 Lymphocytes Auto (Unsp spec) [#/Vol] 0.55 10*3/uL Low 0.83-4.51 [facility] Absolute neutrophil countOrd ered By: Seth Lancaster on 11-21-2024 Neutrophils (Bld) [#/Vol] 10.1 10*3/uL High 2.0-7.7 [facility] Activated partial thrombopla stin time (aPTT) in platelet poor plasma by coagulation aOrdered By: Seth Lancaster on 11-21-2024 aPTT Coag (PPP) [Time] 27.6 s 24.1-36.2 [facility] Anion gap in Serum or Plasma Ordered By: Seth Lancaster on 11-21-2024 Anion gap [Moles/Vol] 8 mmol/L - [facility] Automated blood erythrocyte countOrdered By: Seth Lancaster on 11-21-2024 RBC (Bld) [#/Vol] 4.94 10*6/uL Normal 4.6-6.2 [facility] Comment on above: Performed By: #### L 500.2500, L501.4021, L501.5200, L503.7505, L100.0100, L501.9520 #### [facility] [address] [facility] [place], [place], [id number] Automated blood hematocrit ( percentage)Ordered By: Seth Lancaster on 11-21-2024 Hematocrit (Bld) [Volume fraction] 44.7 % Normal 40-54 [facility] Comment on above: Performed By: #### L 500.2500, L501.4021, L501.5200, L503.7505, L100.0100, L501.9520 #### [facility] [address] [place], [address] Automated lymphocyte count a s percentage of total leukocytesOrdered By: Seth Lancaster on 11-21-2024 Lymphocytes/100 WBC Auto (Unsp spec) 4.8 % Low 19-41 [facility] BUN/creatinine ratioOrdered By: Seth Lancaster on 11-21-2024 Urea nitrogen/Creatinine [Mass ratio] 13.9 mg/mg - [facility] Basic Metabolic Profile (BMP )on 11-21-2024 BUN/CRE 13.9 RATIO Normal 11-26 [facility] Comment on above: Performed By: #### L 500.2500, L501.4021, L501.5200, L503.7505, L100.0100, L501.9520 #### [facility] [address] [place], [address] ECRCL 70.79 ml/min Normal 50-250 [facility] Comment on above: Performed By: #### L 500.2500, L501.4021, L501.5200, L503.7505, L100.0100, L501.9520 #### [facility] [address] [place], [address] GAP 8 Normal 06-21 [facility] Comment on above: Performed By: #### L 500.2500, L501.4021, L501.5200, L503.7505, L100.0100, L501.9520 #### [facility] [address] [place], [address] Potassium [Moles/Vol] 3.9 mmol/L Normal 3.3-5.1 [facility] Comment on above: Performed By: #### L 500.2500, L501.4021, L501.5200, L503.7505, L100.0100, L501.9520 #### [facility] [address] [place], [address] Basophil percentageOrdered B y: Seth Lancaster on 11-21-2024 Basophils/100 WBC (Bld) 0.3 % Normal 0-1 [facility] Comment on above: Performed By: #### L 500.2500, L501.4021, L501.5200, L503.7505, L100.0100, L501.9520 #### [facility] [address] [place], [address] CBC W/Diff, Automatedon 10-1 5-2024 Absolute Lymph 0.55 X10 3/uL Low 0.83-4.51 [facility] Comment on above: Performed By: #### L 500.2500, L501.4021, L501.5200, L503.7505, L100.0100, L501.9520 #### [facility] [address] [place], [address] Absolute Neut 10.1 X10 3/uL High 2.0-7.7 [facility] Comment on above: Performed By: #### L 500.2500, L501.4021, L501.5200, L503.7505, L100.0100, L501.9520 #### [facility] [address] [place], [address] IG% 0.300 Normal 0.0-0.9 [facility] Comment on above: Result Comment: IG% - Immature Granulocytes (promyelocytes, myelocytes and metamyelocytes) > 1% indicates that a LEFT SHIFT is Present. Performed By: #### L 500.2500, L501.4021, L501.5200, L503.7505, L100.0100, L501.9520 #### [facility] [address] [place], [address] Lymphocytes/100 WBC (Bld) 4.8 % Low 19-41 [facility] Comment on above: Performed By: #### L 500.2500, L501.4021, L501.5200, L503.7505, L100.0100, L501.9520 #### [facility] [address] [place], [address] Nucleated RBC (Bld) [#/Vol] 0 10*3/uL Normal 0-5 [facility] Comment on above: Performed By: #### L 500.2500, L501.4021, L501.5200, L503.7505, L100.0100, L501.9520 #### [facility] [address] [place], [address] RDW SD 44.7 fl High 35.1-43.9 [facility] Comment on above: Performed By: #### L 500.2500, L501.4021, L501.5200, L503.7505, L100.0100, L501.9520 #### [facility] [address] [place], [address] CTA Chest W/WO Contraston CTA Chest W/WO Contrast [facility] Services [address] [place] [address] CTA Chest W/WO Contrast MR#: [id number] Acct: [id number] Name: BENJAMIN LEOS [place] Rep #: [id number] : 1945 M 79 From: Javy Jacinto MD PCP: [facility] Status: REG ER Study: CTA Chest W/WO Contrast Date of Exam: 11/21/24 Exam# [id number] Ordering Dr: Seth Lancaster DO PROCEDURE: CTA [...] tissue sampling could be performed. Reading Location: DYG-YTHINES-LV CC: Dr. Seth Lancaster, [facility] Waste Salvager: Signed Normal [facility] Carbon dioxide, total [Moles /volume] in Central venous bloodOrdered By: Seth Lancaster on 11-21-2024 CO2 [Moles/Vol] 27.1 mmol/L Normal 21.0-32.0 [facility] Comment on above: Performed By: #### L 500.2500, L501.4021, L501.5200, L503.7505, L100.0100, L501.9520 #### [facility] [address] [place], [address] Chloride assayOrdered By: Herve Lancaster on 11-21-2024 Chloride [Moles/Vol] 103 mmol/L Normal 98-108 [facility] Comment on above: Performed By: #### L 500.2500, L501.4021, L501.8710, L503.1925, L100.0100, L501.0415 #### [facility] [address] [place], [address] Electrocardiogram reportOrde red By: Jasper Bucio on 11-21-2024 EKG study [facility] [address] [place] [address] 12 Lead EKG 11/21/24 1042 MR#: [id number] Acct: [id number] Name: BENJAMIN LEOS Rep #:[id number] : 1945 79 From: Jasper Bucio MD Attending Dr: Status: DEP E R Ordering Dr: Seth Lancaster ate: 11/21/24 Location: ED Sex: M C Admitted: Test Reason : Blood Pressure : */* mmHG Vent. Rate : 79 BPM Atrial Rate : * BPM P-R Int : * ms QRS Dur : 84 ms QT Int : 370 ms P-R-T Axes : * -20 7 degrees QTcB Int : 424 ms Atrial fibrillation Abnormal ECG Confirmed by JASPER BUCIO MD ([id number]), market editor CASSANDRA PETERSEN ([id number]) on 11/22/2024 10:00:30 AM Referred By: Confirmed By: JASPER BUCIO MD 11/22/24 1000 Date _ Jasper Bucio MD CC: Dr. Seth Lancaster, DO; [facility] ~ Signed [facility] Other Phone: Emergency Department Summary on 11-21-2024 Emergency Department Summary [facility] Medical Records Department [address] [place] [address] Emergency Department Summary 11/21/24 MR#: [id number] Acct: [id number] Name: BENJAMIN LEOS Rep #: [id number] : 1945 79 From: Seth Lancaster DO PCP: CT Hospital Status:REG ER Location: ED HPI History [...] intact Psych: Cooperative, appropriate mood and affect [facility] Medical History Elevated coronary artery calcium score [...] abnormality, thyroid (more content not included)... Normal [facility] Eosinophil percentageOrdered By: Seth Lancaster on 11-21-2024 Eosinophils/100 WBC (Bld) 0.2 % Normal 0-5 [facility] Comment on above: Performed By: #### L 500.2500, L501.4021, L501.5200, L503.7505, L100.0100, L501.9520 #### [facility] [address] [place], [place], [id number] Erythrocyte distribution wid th ratioOrdered By: Seth Lancaster on 11-21-2024 Erythrocyte distribution width (RBC) [Ratio] 13.5 % Normal 11.6-14.6 [facility] Comment on above: Performed By: #### L 500.2500, L501.4021, L501.5200, L503.7505, L100.0100, L501.9520 #### [facility] [address] [facility] [place], [place], [id number] Erythrocyte distribution wid th standard deviationOrdered By: Seth Rojas on 11-21-2024 Erythrocyte distribution width (RBC) [Ratio] 44.7 fl High 35.1-43.9 [facility] Glomerular filtration rate ( GFR) estimation/1.73 sq m using serum, plasma, or whole bOrdered By: Seth Lancaster on 11-21-2024 GFR/1.73 sq M.predicted among non-blacks MDRD (S/P/Bld) [Vol rate/Area] 89 mL/min/{1.73_m2} Normal >60 [facility] Comment on above: mL/min/1.73m2 CKD-EP I Creatinine Equation (2020) Result Comment: mL/m in/1.73m2 CKD-EPI Creatinine Equation (2020) Performed By: #### L 500.2500, L501.4021, L501.5200, L503.7505, L100.0100, L501.9520 #### [facility] [address] [place], [place], [id number] Hemoglobin measurementOrdere d By: Seth Lancaster on 11-21-2024 Hemoglobin (Bld) [Mass/Vol] 15.4 g/dL Normal 13.0-16.5 [facility] Comment on above: Performed By: #### L 500.2500, L501.4021, L501.5200, L503.7505, L100.0100, L501.9520 #### [facility] [address] [place], [address] Immature granulocytes/100 WB C Auto (Bld)Ordered By: Seth Lancaster on 11-21-2024 Immature granulocytes/100 WBC (Bld) 0.300 % 0.0-0.9 [facility] Comment on above: IG% - Immature Granu locytes (promyelocytes, myelocytes and metamyelocytes) > 1% indicates that a LEFT SHIFT is Present. International normalized rat io (INR) calculationOrdered By: Seth Lancaster on 11-21-2024 INR Coag (Bld) [Relative time] 1.1 {INR} [facility] L501.4021on 11-21-2024 Trop T High Sen 12 ng/L Normal <=22 [facility] Comment on above: Performed By: #### L 500.2500, L501.4021, L501.5200, L503.7505, L100.0100, L501.9520 #### [facility] [address] [place], [address] ( MCV (mean corpuscular volume ) determinationOrdered By: Seth Lancaster on 11-21-2024 MCV (RBC) [Entitic vol] 90.5 fL Normal 80-94 [facility] Comment on above: Performed By: #### L 500.2500, L501.4021, L501.5200, L503.7505, L100.0100, L501.9520 #### [facility] [address] [place], [address] Magnesiumon 11-21-2024 Magnesium [Mass/Vol] 1.6 mg/dL Normal 1.5-2.2 [facility] Comment on above: Performed By: #### L 500.2500, L501.4021, L501.5200, L503.7505, L100.0100, L501.9520 #### [facility] [address] [place], [address] Magnesium measurement (mass/ volume)Ordered By: Seth Lancaster on 11-21-2024 Magnesium (Unsp spec) [Mass/Vol] 1.6 mg/dL 1.5-2.2 [facility] Mean corpuscular hemoglobin (MCH) determinationOrdered By: Seth Lancaster on 11-21-2024 MCH (RBC) [Entitic mass] 31.2 pg Normal 27.0-32.0 [facility] Comment on above: Performed By: #### L 500.2500, L501.4021, L501.5200, L503.7505, L100.0100, L501.9520 #### [facility] [address] [place], [address] Mean corpuscular hemoglobin concentration (MCHC) determinationOrdered By: Seth Lancaster on 11-21-2024 MCHC (RBC) [Mass/Vol] 34.5 g/dL Normal 32-36 [facility] Comment on above: Performed By: #### L 500.2500, L501.4021, L501.5200, L503.7505, L100.0100, L501.9520 #### [facility] [address] [place], [address] Mean platelet volume determi nationOrdered By: Seth Lancaster on 11-21-2024 Platelet mean volume (Bld) [Entitic vol] 10.6 fL Normal 6.2-12.0 [facility] Comment on above: Performed By: #### L 500.2500, L501.4021, L501.5200, L503.7505, L100.0100, L501.9520 #### [facility] [address] [place], [address] Monocyte percentageOrdered B y: Seth Lancaster on 11-21-2024 Monocytes/100 WBC (Bld) 6.4 % Normal 0-10 [facility] Comment on above: Performed By: #### L 500.2500, L501.4021, L501.5200, L503.7505, L100.0100, L501.9520 #### [facility] [address] [place], [place], [id number] Natriuretic peptide.B prohor delroy N-Terminal [Mass/volume] in Serum or PlasmaOrdered By: Seth Lancaster on 11-21-2024 Natriuretic peptide.B prohormone N-Terminal [Mass/Vol] 1123 pg/mL <1800 [facility] Comment on above: Heart Failure Unlike ly: < 300 pg/mLHeart Failure Likely< 50 Years: > 450 pg/mL50-75 Years: > 900 pg/mL>75 Years: > 1800 pg/mL Neutrophil percentageOrdered By: Seth Lancaster on 11-21-2024 Neutrophils/100 WBC (Bld) 88.0 % High 47-70 [facility] Comment on above: Performed By: #### L 500.2500, L501.4021, L501.5200, L503.7505, L100.0100, L501.9520 #### [facility] [address] [place], [place], [id number] Nucleated red blood cell per centageOrdered By: Seth Lancaster on 11-21-2024 Nucleated RBC/100 WBC (Bld) [Ratio] 0 % 0-5 [facility] Partial Thromboplast Timeon 11-21-2024 aPTT Coag (Bld) [Time] 27.6 s Normal 24.1-36.2 [facility] Comment on above: Performed By: #### L 499.0043 #### [facility] [address] [place], [place], [id number] Platelet countOrdered By: Herve Lancaster on 11-21-2024 Platelets (Bld) [#/Vol] 154 10*3/uL Normal 150-450 [facility] Comment on above: Performed By: #### L 500.2500, L501.4021, L501.5200, L503.7505, L100.0100, L501.9520 #### [facility] [address] [place], [address] Potassium measurement (mass/ volume)Ordered By: Seth Lancaster on 11-21-2024 Potassium (Unsp spec) [Mass/Vol] 3.9 mmol/L 3.3-5.1 [facility] Pro- Brain NATRIURETIC PEPTI Lydia 11-21-2024 Natriuretic peptide B (Bld) [Mass/Vol] 1123 pg/mL Normal <=1800 [facility] Comment on above: Result Comment: Hear t Failure Unlikely: < 300 pg/mL Heart Failure Likely < 50 Years: > 450 pg/mL 50-75 Years: > 900 pg/mL >75 Years: > 1800 pg/mL Performed By: #### L 500.2500, L501.4021, L501.5200, L503.7505, L100.0100, L501.9520 #### [facility] [address] [place], [address] Prothrombin Time w/INRon INR Coag (PPP) [Relative time] 1.1 {INR} Normal [facility] Comment on above: Performed By: #### L 300.4310, L300.3900 #### [facility] [address] [place], [address] Prothrombin timeOrdered By: Seth Lancaster on 11-21-2024 PT Coag (PPP) [Time] 14.3 s Normal 11.7-14.9 [facility] Comment on above: Performed By: #### L 300.4310, L300.3900 #### [facility] [address] [facility] [place], [address] Serum creatinine measurement (mass/volume)Ordered By: Seth Lancaster on 11-21-2024 Creatinine [Mass/Vol] 0.86 mg/dL Normal 0.70-1.20 [facility] Comment on above: Performed By: #### L 500.2500, L501.4021, L501.5200, L503.7505, L100.0100, L501.9520 #### [facility] [address] [facility] [place], [address] Serum glucose measurement (m ass/volume)Ordered By: Seth Lancaster on 11-21-2024 Glucose [Mass/Vol] 121 mg/dL High 70-99 [facility] Comment on above: Performed By: #### L 500.2500, L501.4021, L501.5200, L503.7505, L100.0100, L501.9520 #### [facility] [address] [facility] [place], [address] Serum or plasma calcium karlene urement (mass/volume)Ordered By: Seth Rojas on 11-21-2024 Calcium [Mass/Vol] 9.3 mg/dL Normal 7.6-11.0 [facility] Comment on above: Performed By: #### L 500.2500, L501.4021, L501.5200, L503.7505, L100.0100, L501.9520 #### [facility] [address] [place], [address] Serum or plasma urea nitroge n measurement (mass/volume)Ordered By: Seth Lancaster on 11-21-2024 Urea nitrogen [Mass/Vol] 12 mg/dL Normal 4-19 [facility] Comment on above: Performed By: #### L 500.2500, L501.4021, L501.5200, L503.7505, L100.0100, L501.9520 #### [facility] [address] [facility] [place], [address] Sodium levelOrdered By: Brian Lancaster on 11-21-2024 Sodium [Moles/Vol] 139 mmol/L Normal 133-145 [facility] Comment on above: Performed By: #### L 500.2500, L501.4021, L501.5200, L503.7505, L100.0100, L501.9520 #### [facility] [address] [facility] [place], [address] TSH DL <= 0.005 mIU/L QnOrde red By: Seth Lancaster on 11-21-2024 TSH Qn 1.700 uIU/mL 0.300-4.200 [facility] Thyroid Stim Hormone (TSH)on 11-21-2024 TSH 1.700 uIU/mL Normal 0.300-4.200 [facility] Comment on above: Performed By: #### L 500.2500, L501.4021, L501.5200, L503.7505, L100.0100, L501.9520 #### [facility] [address] [place], [address] Troponin T HS 2 HRon 025 Trop T High Sen 10 ng/L Normal <=22 [facility] Comment on above: Performed By: #### L 499.0042 #### [facility] [address] [facility] [place], [address] Troponin T.cardiac [Mass/vol ume] in Serum or Plasma by High sensitivity methodOrdered By: Seth Lancaster on 11-21-2024 Troponin T.cardiac High sensitivity method [Mass/Vol] 10 ng/L <22 [facility] Troponin T.cardiac High sensitivity method [Mass/Vol] 12 ng/L <22 [facility] White blood cell (WBC) count Ordered By: Seth Lancaster on 11-21-2024 WBC (Bld) [#/Vol] 11.4 10*3/uL High 4.4-11.0 [facility] Comment on above: Performed By: #### L 500.2500, L501.4021, L501.5200, L503.7505, L100.0100, L501.9520 #### [facility] [address] [facility] [place], [place], [address] Knee 4 or More Viewson 05-25 Knee 4 or More Views [facility] [address] [place] [address] Knee 4 or More Views MR#: [id number] Acct: [id number] Name: BENJAMIN LEOS Rep #: [id number] : 1945 M 79 From: Aries diego MD PCP: Dr. Anitra Webb DO Status: DEP AMB Study: Knee 4 or More Views Date of Exam: 05/25/24 Exam# [id number] Ordering Dr: Chintan Carmona DO PROCEDURE: KNEE [...] ACUTE FINDINGS. Small joint effusion. Reading Location: [facility] CC: Dr. Chintan Carmona DO; Dr. 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 Chintan fisher DO Age/Sex: 79/M Location: [facility] Status: Signed with Addenda ADDENDUM by MELISSA [...] Performing Provider: Chintan Carmona DO Performing Location: [facility] Administered by: Chintan Carmona DO on 05/25/24 14:11 Dose Route Admin Location Dispensed Lot Number Expiration Date NDC Man ufacturer 40 mg intra-articular Right distal it band 1 mL [id number] 09/07/25 [id number] 0-03 [facility] Date cc: * Signed Intake Vital Signs [...] the decisions made by me, Dr. Chintan Carmona, 05/25/24 0822. Part of today???s visit was documented by Ruth STARK, acting as scribe. BENJAMIN LEOS is a 79 year old M with [...] Knee ROM (more content not included)... Normal [facility] No Panel Informationon 07-15 Prostate Specific Antigen Total < 0.01 ng/mL 0.0-4.0 [facility] Work Phone: Comment on above: This test was perfor med using the TPSA assay method for theOurStay chemistry system. Values obtained with differentassay methods cannot be used interchangably.When changing PSA assays in the course of monitoring apatient, additional sequential testing should be carriedout to confirm baseline values. No Panel Informationon 10-08 Not at all - 0 [facility] Work Phone: Minimal Anxiety [facility] Work Phone: [address] [facility] Work Phone: Comment on above: Over [...] at all - 0 No Depression Shena [facility] Work Phone: Not difficult at all MAITE ely [facility] Work Phone: Negative MAHENDRAAnitra [facility] Work Phone: Office Visit ([facility])on 10-08-2020 Follow-up visit Diagnoses/Problems Aortic atherosclerosis (440.0) [...] For - Exact Date,Retrospective Authorization; Requested for:Approx [id number]; Complete Blood Count; Status:Hold For - Exact Date,Retrospective Authorization; Requested for:Approx [id number]; Hyperlipidemia Lipid Panel; Status:Hold For - Exact Date,Retrospective Authorization; Requested for:Approx [id number]; Patient Discussion/Summary Weight-- For overall health, would [...] with you (more content not included)... Normal [facility] Tobacco Screening.on 021 Fall risk assessment a) No falls within the last year [facility] Work Phone: Tobacco use status [facility] b) No M [facility] Work Phone: CT CARDIAC SCORINGon 021 CT CARDIAC SCORING Patient Name: BENJAMIN LEOS STUDY: CT CARDIAC SCORING; 05/09/2020 8:42 am INDICATION: hx HLD; screening. COMPARISON: None. ACCESSION NUMBER(S): [id number] ORDERING CLINICIAN: ANITRA HOOVER TECHNIQUE: Using prospective [...] increased >800 Evans et al. JCCT 2016 (http://dx.doi.org/10. 1016/j.jcct.2016.11.00 3) PAK 10-Year CHD Risk with Coronary Artery Calcification can be calcuate using link below https://www.pak-nhlbi .org/MESACHDRisk/MesaR iskScore/RiskScore.asp x Angélica jorgensen al. JACC 2015 (http://dx.doi.org/10. 1016/j.j acc.2015.08.035) Electronically signed by: HUSSAIN CASTILLO MD Normal [facility] PROT.ELECTRO,URN PATH REVIEW on 04-24-2020 PATH REVIEW-JODI GRANADOS Normal [facility] Comment on above: Result Comment: By h er/his signature above, the Pathologist listed as making the final interpretation certifies that she/he has personally reviewed this case. Performed By: #### T HYDS #### [facility] [address] [place] [address] PROTEIN ELECTROPHORESIS, ANGEL Andrade 04-24-2020 INTERPRETATION NORMAL Normal [facility] Comment on above: Performed By: #### E LURS #### [facility] [address] [place] [address] ALBUMIN 1.7 mg/dL Normal [facility] Comment on above: Performed By: #### E LURS #### [facility] [address] [place] [address] ALPHA 1 GLOBULIN 0.6 mg/dL Normal [facility] Comment on above: Performed By: #### E LURS #### [facility] [address] [place] [address] ALPHA 2 GLOBULIN 1.1 mg/dL Normal [facility] Comment on above: Performed By: #### E LURS #### [facility] [address] [place] [address] BETA GLOBULIN 1.2 mg/dL Normal [facility] Comment on above: Performed By: #### E LURS #### [facility] [address] [place] [address] GAMMA GLOBULIN 0.4 mg/dL Normal [facility] Comment on above: Performed By: #### E LURS #### [facility] [address] [place] [address] EVY-WITH REFLEX TO ENAon EVY WITH REFLEX TO TAYLOR Negative Normal NEGATIVE [facility] Comment on above: Performed By: #### A NA2 #### [facility] [address] [place] [address] C-REACTIVE PROTEINon 021 C-REACTIVE PROTEIN 0.11 mg/dL Normal [facility] Comment on above: Result Comment: REF VALUE < 1.00 Performed By: #### C RP #### [facility] [address] [place] [address] CBC AND DIFFERENTIALon 04-23 % AUTOMATED IMMATURE GRAN 0.2 % Normal 0.0 - 0.9 [facility] Comment on above: Result Comment: Yanira ture Granulocyte Count (IG) includes promyelocytes, myelocytes and metamyelocytes but does not include bands. Percent differential counts (%) should be interpreted in the context of the absolute cell counts (cells/L). Performed By: #### C BCDF #### [facility] [address] [place] [address] Basophils (Bld) [#/Vol] 0.03 10*3/uL Normal 0.00 - 0.[address] [facility] Comment on above: Performed By: #### C BCDF #### [facility] [address] [place] [address] Basophils/100 WBC (Bld) 0.5 % Normal 0.0 - 2.0 [facility] Comment on above: Performed By: #### C BCDF #### [facility] [address] [place] [address] Eosinophils (Bld) [#/Vol] 0.08 10*3/uL Normal 0.00 - 0.40 [facility] Comment on above: Performed By: #### C BCDF #### [facility] [address] [place] [address] Eosinophils/100 WBC (Bld) 1.3 % Normal 0.0 - 6.0 [facility] Comment on above: Performed By: #### C BCDF #### [facility] [address] [place] [address] Erythrocyte distribution width (RBC) [Ratio] 13.4 % Normal 11.5 - 14.5 [facility] Comment on above: Performed By: #### C BCDF #### [facility] [address] [place] [address] Hematocrit (Bld) [Volume fraction] 44.0 % Normal 41.0 - 52.0 [facility] Comment on above: Performed By: #### C BCDF #### [facility] [address] [place] [address] Hemoglobin (Bld) [Mass/Vol] 14.4 g/dL Normal 13.5 - 17.5 [facility] Comment on above: Performed By: #### C BCDF #### [facility] [address] [place] [address] Lymphocytes (Bld) [#/Vol] 0.64 10*3/uL Low 0.80 - 3.00 [facility] Comment on above: Performed By: #### C BCDF #### [facility] [address] [place] [address] Lymphocytes/100 WBC (Bld) 10.7 % Normal 13.0 - 44.0 [facility] Comment on above: Performed By: #### C BCDF #### [facility] [address] [place] [address] MCHC (RBC) [Mass/Vol] 32.7 g/dL Normal 32.0 - 36.0 [facility] Comment on above: Performed By: #### C BCDF #### [facility] [address] [place] [address] MCV (RBC) [Entitic vol] 91 fL Normal 80 - 100 [facility] Comment on above: Performed By: #### C BCDF #### [facility] [address] [place] [address] Monocytes (Bld) [#/Vol] 0.41 10*3/uL Normal 0.05 - 0.[address] [facility] Comment on above: Performed By: #### C BCDF #### [facility] [address] [place] [address] Monocytes/100 WBC (Bld) 6.9 % Normal 2.0 - 10.0 [facility] Comment on above: Performed By: #### C BCDF #### [facility] [address] [place] [address] Neutrophils (Bld) [#/Vol] 4.79 10*3/uL Normal 1.60 - 5.50 [facility] Comment on above: Performed By: #### C BCDF #### [facility] [address] [place] [address] Neutrophils/100 WBC (Bld) 80.4 % Normal 40.0 - 80.0 [facility] Comment on above: Performed By: #### C BCDF #### [facility] [address] [place] [address] NUCLEATED RBC 0.0 /100 WBC Normal 0.0-0.0 [facility] Comment on above: Performed By: #### C BCDF #### [facility] [address] [place] [address] Platelets (Bld) [#/Vol] 178 10*3/uL Normal 150 - 450 [facility] Comment on above: Performed By: #### C BCDF #### [facility] [address] [place] [address] RBC 4.81 x10E12/L Normal 4.50 - 5.90 [facility] Comment on above: Performed By: #### C BCDF #### [facility] [address] [place] [address] WBC (Bld) [#/Vol] 6.0 10*3/uL Normal 4.4 - 11.3 [facility] Comment on above: Performed By: #### C BCDF #### [facility] [address] [place] [address] CITRULLINE ANTIBODYon 2020 CITRULLINE ANTIBODY <1 Normal [facility] Comment on above: Result Comment: THE TEST [...] U/ML Performed By: #### C ITAB #### [facility] [address] [place] [address] COMPREHENSIVE PANELon 2020 Albumin [Mass/Vol] 4.5 g/dL Normal 3.4 - 5.0 [facility] Comment on above: Performed By: #### C MP #### [facility] [address] [place] [address] ALP [Catalytic activity/Vol] 53 U/L Normal 33 - 136 [facility] Comment on above: Performed By: #### C MP #### [facility] [address] [place] [address] ALT [Catalytic activity/Vol] 21 U/L Normal 10 - 52 [facility] Comment on above: Result Comment: Matilde ents treated with Sulfasalazine may generate falsely decreased results for ALT. Performed By: #### C MP #### [facility] [address] [place] [address] Anion gap [Moles/Vol] 12 mmol/L Normal 10 - 20 [facility] Comment on above: Performed By: #### C MP #### [facility] [address] [place] [address] AST [Catalytic activity/Vol] 20 U/L Normal 9 - 39 [facility] Comment on above: Performed By: #### C MP #### [facility] [address] [place] [address] Bilirubin [Mass/Vol] 0.7 mg/dL Normal 0.0 - 1.2 [facility] Comment on above: Performed By: #### C MP #### [facility] [address] [place] [address] Calcium [Mass/Vol] 9.2 mg/dL Normal 8.6 - 10.6 [facility] Comment on above: Performed By: #### C MP #### [facility] [facility] [address] [place] [address] Chloride [Moles/Vol] 103 mmol/L Normal 98 - 107 [facility] Comment on above: Performed By: #### C MP #### [facility] [address] [place] [address] Creatinine [Mass/Vol] 0.89 mg/dL Normal 0.50 - 1.30 [facility] Comment on above: Performed By: #### C MP #### [facility] [address] [place] [address] GFR- AM. >60 Normal >60 [facility] Comment on above: Result Comment: CALC ULATIONS OF ESTIMATED GFR ARE PERFORMED USING THE MDRD STUDY EQUATION FOR THE IDMS-TRACEABLE CREATININE METHODS. CLIN CHEM 2007;53:766-72 Performed By: #### C MP #### [facility] [address] [place] [address] GFR-NON AM. >60 Normal >60 [facility] Comment on above: Performed By: #### C MP #### [facility] [address] [place] [address] Glucose [Mass/Vol] 78 mg/dL Normal 74 - 99 [facility] Comment on above: Performed By: #### C MP #### [facility] [address] [place] [address] HCO3 (Bld) [Moles/Vol] 29 mmol/L Normal 21 - 32 [facility] Comment on above: Performed By: #### C MP #### [facility] [address] [place] [address] Potassium [Moles/Vol] 4.1 mmol/L Normal 3.5 - 5.3 [facility] Comment on above: Performed By: #### C MP #### [facility] [address] [place] [address] Protein [Mass/Vol] 6.7 g/dL Normal 6.4 - 8.2 [facility] Comment on above: Performed By: #### C MP #### [facility] [address] [place] [address] Sodium [Moles/Vol] 140 mmol/L Normal 136 - 145 [facility] Comment on above: Performed By: #### C MP #### [facility] [address] [place] [address] Urea nitrogen [Mass/Vol] 16 mg/dL Normal 6 - 23 [facility] Comment on above: Performed By: #### C MP #### [facility] [address] [place] [address] CREATINE KINASEon 04-23-2020 CK [Catalytic activity/Vol] 138 U/L Normal 0 - 325 [facility] Comment on above: Performed By: #### C K #### [facility] [address] [place] [address] LIPID PANEL (CORONARY RISK 2 )on 04-23-2020 Cholesterol [Mass/Vol] 179 mg/dL Normal 0 - 199 [facility] Comment on above: Result Comment: [...] Performed By: #### L IPID #### [facility] [address] [place] [address] Cholesterol in HDL [Mass/Vol] 39.7 mg/dL Abnormal [facility] Comment on above: Result Comment: . AGE VERY LOW LOW NORMAL HIGH 0-19 Y < 35 < 40 40-45 ---- 20-24 Y ---- < 40 >45 ---- >24 Y ---- < 40 40-60 >60 . Performed By: #### L IPID #### [facility] [address] [place] [address] Cholesterol in LDL [Mass/Vol] 117 mg/dL High 0 - 99 [facility] Comment on above: Result Comment: . NEAR BORD AGE DESIRABLE OPTIMAL HIGH HIGH VERY HIGH 0-19 Y 0 - 109 --- 110-129 >/= 130 ---- 20-24 Y 0 - 119 --- 120-159 >/= 160 ---- >24 Y 0 - 99 100-129 130-159 160-189 >/=190 . Performed By: #### L IPID #### [facility] [address] [place] [address] Cholesterol in VLDL [Mass/Vol] 22 mg/dL Normal 0 - 40 [facility] Comment on above: Performed By: #### L IPID #### [facility] [address] [place] [address] Cholesterol.total/Mandy sterol in HDL [Mass ratio] 4.5 {ratio} Normal [facility] Comment on above: Result Comment: REF VALUES DESIRABLE < 3.4 HIGH RISK > 5.0 Performed By: #### L IPID #### [facility] [address] [place] [address] Triglyceride [Mass/Vol] 111 mg/dL Normal 0 - 149 [facility] Comment on above: Result Comment: . AGE [...] Performed By: #### L IPID #### [facility] [address] [place] [address] PROTEIN ELECTROPHORESIS, RAN DOMon 04-23-2020 TOTAL PROT,URINE SPOT 5 mg/dL Normal 5 - 25 [facility] Comment on above: Performed By: #### E LURS #### [facility] [address] [place] [address] SEDIMENTATION RATE, ERYTHROC YTEon 04-23-2020 SEDIMENTATION RATE, ERYTHROCYTE 8 mm/h Normal 0 - 20 [facility] Comment on above: Performed By: #### T HYDS #### [facility] [address] [place] [address] TSH WITH REFLEX TO FREE T4 I F ABNORMALon 04-23-2020 TSH Qn 1.87 m[IU]/L Normal 0.44 - 3.98 [facility] Comment on above: Result Comment: TSH testing is performed using different testing methodology at [facility] than at other [facility]. Direct result comparisons should only be made within the same method. Performed By: #### T HYDS #### [facility] [address] [place] [address] MRI Pelvis w/ + w/o Contrast on 03-27-2017 MRI Pelvis w/ + w/o Contrast Patient Name: BENJAMIN LEOS MRI Exam Date/Time 2017 09:27:42 EST Exam MRI Pelvis w/ + w/o Contrast Ordering Physician UNASSIGNED, UNASSIGNED Accession Number [id number] CPT4 Codes 90338 () Reason For Exam adenocarcinoma of the prostate Report MRI PROSTATE WITHOUT AND WITH CONTRAST: CLINICAL INDICATION: 72-year-old male patient with history of malignant neoplasm of the prostate, adenocarcinoma, and status post prostatectomy one year ago. PSA is normal. Scan prior to radiation treatment. TECHNIQUE: Transaxial T1 whole pelvis along with sagittal, transaxial and coronal and diffusion weighted T2 sequences with small tkdrs-ff-nbgy through the lower pelvis. Dynamic multiphase T1 fat suppression sequences were also performed with small nsxta-zb-wdvv following administration of 15 ml Magnevist contrast. [...] Transcribed Date and Time: 03/27/2017 2:29 Normal [facility] Vital Signs Date Time Vital Sign Value Performing Clinician Facility 12-06-2024 09:06-0400 Body height 175.[address] Seth Lancaster DO Work Phone: 9(642)222-430263 [place] [address] 12-06-2024 09:06-0400 Body mass index (BMI) [Ratio] 25.4 kg/m2 Dr. Seth Lancaster DO Work Phone: 4(443)298-621863 [place] [address] 12-06-2024 09:06-0400 Body weight 78.[address] Seth Lancaster DO Work Phone: 6(130)157-911563 [place] [address] 12-06-2024 09:06-0400 Diastolic blood pressure 83 mm[Hg] Dr. Seth Lancaster DO Work Phone: 2(556)743-241963 [place] [address] 12-06-2024 09:06-0400 Heart rate 82 /min Dr. Seth Lancaster DO Work Phone: 8(390)350-341363 [place] [address] 12-06-2024 09:06-0400 Respiratory rate 16 /min Dr. Seth Lancaster DO Work Phone: 7(256)185-706963 [place] [address] 12-06-2024 09:06-0400 Systolic blood pressure 135 mm[Hg] Dr. Seth Lancsater DO Work Phone: 8(174)886-232063 [place] [address] 11-26-2024 14:27-0400 Body temperature 98.2 [degF] Dr. Seth Lancaster DO Work Phone: 8(763)070-983163 [place] [address] 11-26-2024 14:27-0400 Diastolic blood pressure 92 mm[Hg] Dr. Seth Lancaster DO Work Phone: 6(737)179-670365 [place] [address] 11-26-2024 14:27-0400 Heart rate 73 /min Dr. Seth Lancaster DO Work Phone: 5(745)006-204865 [place] [address] 11-26-2024 14:27-0400 Respiratory rate 19 /min Dr. Seth Lancaster DO Work Phone: 9(197)097-811565 [place] [address] 11-26-2024 14:27-0400 SaO2% (BldA) [Mass fraction] 99 % Dr. Seth Lancaster DO Work Phone: 3(169)892-261265 [place] [address] 11-26-2024 14:27-0400 Systolic blood pressure 138 mm[Hg] Dr. Seth Lancaster DO Work Phone: 7(634)058-790765 [place] [address] 11-26-2024 10:58-0400 Body height 175.[address] Seth Lancaster DO Work Phone: 7(616)973-581165 [place] [address] 11-26-2024 10:58-0400 Body mass index (BMI) [Ratio] 25.4 kg/m2 Dr. Seth Lancaster DO Work Phone: 8(183)463-633565 [place] [address] 11-26-2024 10:58-0400 Body weight 78.[address] Seth Lancaster DO Work Phone: 7(479)534-772765 [place] [address] 11-21-2024 14:21-0400 Body temperature 98.1 [degF] Dr. Seth Lancaster DO Work Phone: 0(543)889-899765 [place] [address] 11-21-2024 14:21-0400 Diastolic blood pressure 110 mm[Hg] Dr. Seth Lancaster DO Work Phone: 2(688)856-895365 [place] [address] 11-21-2024 14:21-0400 Heart rate 82 /min Dr. Seth Lancaster DO Work Phone: 0(901)255-543365 [place] [address] 11-21-2024 14:21-0400 Respiratory rate 22 /min Dr. Seth Lancaster DO Work Phone: 8(864)438-229565 [place] [address] 11-21-2024 14:21-0400 SaO2% (BldA) [Mass fraction] 100 % Dr. Seth Lancaster DO Work Phone: [facility] 11-21-2024 14:21-0400 Systolic blood pressure 137 mm[Hg] Dr. Seth Lancaster DO Work Phone: [facility] 11-21-2024 10:31-0400 Body mass index (BMI) [Ratio] 25.8 kg/m2 Dr. Seth Lancaster DO Work Phone: [facility] 11-21-2024 10:31-0400 Body weight 79.[address] Seth Lancaster DO Work Phone: [facility] 10-08-2020 10:14-0400 Body mass index (BMI) [Ratio] 28.74 kg/m2 Anitra Issa Van Nostran [facility]: [facility] Work Phone: 10-08-2020 10:14-0400 Body surface area Derived from formula 1.91 m2 Anitra Issa Van Nostran Work Phone: [facility] Work Phone: 10-08-2020 10:14-0400 Body temperature 96.8 [degF] Anitra Issa Van Nostran [facility] Work Phone: 10-08-2020 10:14-0400 Body weight 81.37 kg Anitra Issa Van Nostran Work Phone: [facility] Work Phone: 10-08-2020 10:14-0400 Diastolic blood pressure 78 mm[Hg] Anitra Issa Van Nostran Work Phone: [facility] Work Phone: 10-08-2020 10:14-0400 Heart rate 47 /min Anitra Issa Van Nostran Work Phone: [facility] Work Phone: 10-08-2020 10:14-0400 SaO2% (BldA) [Mass fraction] 95 % Anitrajoshua Damian Nostran Work Phone: [facility] Work Phone: 10-08-2020 10:14-0400 Systolic blood pressure 144 mm[Hg] Anitra Veloztran Work Phone: [facility] Work Phone: Encounters Encounter Date Encounter Type Care Provider Facility Start: 01-04-2025 ambulatory [facility] Facility: [facility] Start: 12-06-2024 End: 12-06-[address] [facility] Facility:[facility] Start: 11-26-2024 End: 11-26-2024 Emergency department patient visit Dr. Bernardino Love MD -Emergency Department Work Phone: Start: 11-21-2024 End: 11-21-2024 Emergency department patient visit Dr. Seth Lancaster DO -Emergency Department Work Phone: Start: 05-25-2024 End: 05-25-2024 ambulatory [facility] Facility:[facility] Start: 07-15-2021 End: 07-15-2021 Patient encounter procedure [facility] Start: 10-08-2020 Office outpatient vi sit 25 minutes Anitra Noyola [facility] Phone[facility] Work Phone: Start: 2017 Ambulatory [facility] Patient encounter procedure Anitra Noyola Work Phone: [facility] Work Phone: Procedures Date Procedure Procedure Detail Performing Clinician Start: 11-26-2024 Urnls dip stick/tabl et reagent auto microscopy Dr. Seth Lancaster DO Work Phone: Start: 11-26-2024 Radiologic exam ches t [address] Seth Lancaster DO Work Phone: Start: 11-26-2024 CT of head without contrast Dr. Seth Lancaster DO Work Phone: Start: 11-26-[address] Seth Lancaster DO Work Phone: Start: 11-21-2024 CT angiography of ch est with contrast Dr. Seth Lancaster DO Work Phone: Start: 11-21-[address] Seth Lancaster DO Work Phone: Start: 07-02-2021 Medicare Annual Well ness Visit Cataract surgery [facility]itra [employer] [employer] Work Phone: History of decompres ashley of median nerve History of carpal tunnel release Dr. Seth Lancaster DO Work Phone: Prostate Surgery Anitra Luis Manuel [employer] Work Phone: Plan of Treatment Date Care Activity Detail Author Start: 12-06-2024 End: 12-06-2024 Evaluation of diagnostic study results [facility] Start: 12-06-2024 End: 12-06-2024 Patient encounter procedure Atrial fibrillation -[facility] Work Phone: Start: 11-26-2024 [facility] Start: 11-26-2024 Radiologic exam ches t 2 views Chest PA and Lateral [facility] Start: 11-26-2024 CT of head without contrast Brain/Head without Contrast [facility] Start: 11-26-2024 [facility] Start: 11-26-2024 End: 11-26-2024 Emergency department patient visit Departed Emergency -Emergency Department Work Phone: Start: 11-21-2024 [facility] Start: 11-21-[address] [facility] Start: 11-21-2024 [facility] Start: 04-15-2021 Patient encounter procedure MCRANNUAL, Provider: Anitra Noyola, Status: Pen, Time: 9:20 AM [facility] Work Phone: Start: 11-03-2020 PHYSICAL, Provider: Anitra Noyola, Status: Pen, Time: 1:50 PM PHYSICAL, Provider: Anitra Noyola, Status: Pen, Time: 1:50 PM [facility] Work Phone: Patient Education [facility] Work Phone: [facility] Immunizations Immunization Date Immunization Notes Care Provider Fa cility 05-06-2020 Pfizer-BioNTech COVI D-19 Vacc 30 MCG/0.3ML Intramuscular Suspension Anitra Noyola Work Phone: [facility] 04-14-2020 Pfizer-BioNTech COVI D-19 Vacc 30 MCG/0.3ML Intramuscular Suspension Anitra Noyola Work Phone: [facility] Payers Date Payer Category Payer Unknown [id number] 18 2024 Self-pay [id number] 2011 Medicare [id number] Unknown Unknown VA AUTH REQUIRED SEE NOTE* * [id number] Unknown [id number] Unknown [id number] Unknown [id number] Unknown [id number] Unknown [id number] Unknown [id number] Social History Date Type Detail Facility Caffeine use Caffeine use [facility] Work Phone: Start: 02-08-2021 Tobacco smoking stat us NHIS Unknown if ever smoked [facility] Work Phone: Start: 1945 Sex Assigned At Male [facility] Start: 12-03-2024 End: 12-03-2024 Tobacco smoking status NHIS Never smoked tobacco (finding) [facility] Sex Male [facility] Functional Status Date Assessment Result Facility 10-08-2020 PHQ-9 Adult Depressi on Score PHQ-9 Adult Depression Score 0 [facility] Work Phone: Comment on above: Q1: 0, Q2: 0, Q3: 0, Q4: 0, Q5: 0, Q6: 0, Q7: 0, Q8: 0, Q9: 0, Mental Status Date Assessment Result Facility 11-26-2024 Cognitive function [facility] Work Phone: Clinical Notes 04-09-2020 to 11-26-2024 Note Date & Type Note Facility 11-26-2024 Discharge summary [facility] 11-26-2024 Discharge summary Note Date/Time November 26, 2024 3:29pm [facility] Medical Records Department [address] [place] [address] Emergency Department Summary 11/26/24 MR#: [id number] Acct: [id number] Name: BENJAMIN LEOS Rep #:[id number] 5 : 1945 79 From: Bernardino Love MD PCP: [facility] Status:REG ER Location: ED HPI History of Present Illness Chief Complaint: Confusion Informant: patient and spouse/S.O. Narrative Narrative: Patient is a 79-year-old male with a history of AFib presenting with fatigue, lethargy, disorientation, and slurred speech. Patient is accompanied by his wifewho is supplementing history. - Symptoms began 2 days ago. - Reports feeling real tired, very lethargic, and a little confused at times. - Describes feeling disoriented and having difficulty with tasks he usually performs around the house. - notes slurred speech and slow movements, stating, I can't understand everything he's saying. - Denies any numbness, weakness, changes in vision, lightheadedness, chest discomfort, dyspnea, palpitations, emesis, diarrhea, or hematochezia. - Concerns began after starting Eliquis for newly diagnosed AFib; no other new medications. - Long-standing medications include simvastatin, metoprolol, hydrochlorothiazide, vitamin D, omeprazole, and potassium supplements. No changes in these lately. - No recent changes in metoprolol dosage; has been on it for years. - Scheduled to see a dag coater on the for further evaluation. [facility] Medical History Elevated coronary artery calcium score GERD (gastroesophageal reflux disease) Mixed hyperlipidemia Essential (primary) hypertension Trigger finger h/o radiation PTSD (post-traumatic stress disorder) Hypertension Hyperlipidemia Arthritis Elevated PSA History of prostate cancer Home Medications ?Medication ?Instructions ?Recorded ?Last Taken ?Type cholecalciferol (vitamin D3) 50 2,000 unit PO DAILY 11/26/24 History mcg (2,000 unit) capsule potassium chloride 10 mEq 10 meq PO DAILY 03/11/16 History tablet,extended release(part/cryst) hydrochlorothiazide 25 mg tablet 12.5 mg PO DAILY 09/08 05/27 Unknown History omeprazole 20 mg capsule,delayed 20 mg PO DAILY 11/26/24 History release atorvastatin 40 mg tablet 40 mg PO QHS 07/31/20 History metoprolol tartrate 25 mg tablet 25 mg PO BID 07/31/20 11/26/24 History apixaban 5 mg tablet (Eliquis) 5 mg PO BID heart 30 da ys #60 tabs 11/21/24 11/26/24 Rx Allergy/AdvReac Type Severity Reaction Status Date / Time poison piedad extract Allergy Hives Verified 11/26/24 10:58 Family History Father Diabetes Hypertension Father Emphysema [...] do you feel safe at home: Yes ROS ROS ED Constitutional Constitutional ED: Reports fatigue and weakness; Denies chills or fever(s) Eyes Eyes: Denies change in vision or diplopia ENT ENT ED: Denies rhinorrhea or sore throat Cardiovascular Cardiovascular: Denies chest pain or palpitations Respiratory/Chest Respiratory/Chest: Denies cough or dyspnea Gastrointestinal Gastrointestinal: Denies abdominal pain, diarrhea, nausea or vomiting Genitourinary Genitourinary ED: Denies dysuria or hematuria Musculoskeletal Musculoskeletal: Denies back pain or neck pain Integumentary Denies abscess or rash Neurologic Neurologic: Reports as per HPI, abnormal speech and confusion; Denies headache(s), paresthesias or weakness Psychiatric Psychiatric: Denies anxiety or suicidal thoughts EXAM Physical Exam Const Vital Signs: 11/26/24 10:58 11/26/24 12:00 11/26/24 13:00 Temperature 97.8 F Temperature Source Oral Pulse Rate 69 66 68 Respiratory Rate 18 18 16 Blood Pressure 146/99 H 138/92 H 134/88 H Blood Pressure Mean 114 107 103 Pulse Ox 100 98 98 Oxygen Delivery Method Room Air 11/26/24 14:00 Temperature Temperature Source Pulse Rate 73 Respiratory Rate 19 H Blood Pressure 138/92 H Blood Pressure Mean 107 Pulse Ox 99 Oxygen Delivery Method Positive well nourished and well developed General Appearance ED: well developed and NAD HEENT Reports moist mucous membranes normocephalic and atraumatic Eyes PERRL and EOMs intact bilaterally Neck full ROM and supple Resp normal respiratory effort and clear to auscultation bilaterally Cardio regular rate, regular rhythm and no murmurs GI non-tender and non-distended Auscultation: normoactive bowel sounds Palpation: soft Back/Spine no CVA tenderness General Back: other FROM Extremity normal to inspection General Extremety ED: Negative for edema, pulses abnormal or tenderness General Extremity: Negative for edema or pulses abnormal Neuro oriented x3, CN's II-XII intact bilaterally and no sensory deficits noted Neuro Narrative: NIHSS 0. Normal speech at this time, patient and family in agreement. No aphasia. Normal tgzooh-nz-idyc and vhex-ey-tdye bilaterally. Sensorium / Orientation: awake and alert Motor Exam: strength 5/5 throughout Skin no rashes or lesions noted and no wounds MDM MDM MDM Narrative Medical decision making narrative: Considering central nervous system causes, we obtained a CT of the head. My interpretation is unremarkable, and radiology agrees. Given his vague, generalized symptoms, we also performed a cardiac, infectious, and metabolic workup. All results are essentially normal, except that he is in atrial fibrillation, which coincides with the onset of his symptoms. As I discussed with him, because his blood counts are normal with a hemoglobin of 15.6, I suspect Eliquis is not primarily causing his symptoms. He wondered if he should reduce the dose, but I advised him not to. He should continue taking 5 mg twice a day as prescribed. We also reviewed his chest X-ray, which on my interpretation shows no pneumonia.Radiology was in agreement. Sequential troponin measurements are normal. His EKGis normal except for atrial fibrillation, with no signs of acute injury pattern,and he remained rate-controlled in the emergency department. He is on metoprolol, though the dose does not appear to have changed, and he is on no newAV fox blockers. It is possible the atrial fibrillation itself could be causing his fatigue. However, given his episode of dysarthria, we discussed other possibilities, including a TIA. He understands that if it was a TIA, it could be a warning sign before a more significant stroke, and hospitalization might be advisable. However, he prefers to go home and follow up as an outpatient. He has an upcoming appointment with his dag coater. We also conducted a urinalysis, which is negative for infection and essentially normal. Since his speech has been normal throughout his ED stay and his vital signs?including blood pressure?have been essentially normal, I am comfortable discharging him. He has been instructed to return as soon as possible if his symptoms recur or if other issues arise. Otherwise, following up with his dag coater is recommended. He and his are comfortable with this plan. Lab Data Attestation: I reviewed the patient's lab results. Labs: Laboratory Results - last 24 hr 11/26/24 11/26/24 11/26/24 11:13 11:59 13:06 WBC 7.1 RBC 5.07 Hgb 15.6 Hct 45.0 MCV 88.8 MCH 30.8 MCHC 34.7 RDW Std Deviation 42.4 RDW Coeff of Anuj 13.1 Plt Count 181 MPV 10.6 Immature Gran % (Auto) 0.300 Neut % (Auto) 85.4 H Lymph % (Auto) 7.9 L [place] % (Auto) 5.1 Eos % (Auto) 1.0 Baso % (Auto) 0.3 Absolute Neuts (auto) 6.0 Absolute Lymphs (auto) 0.56 L Nucleated RBC % 0 Sodium 138 Potassium 4.0 Chloride 103 Carbon Dioxide 22.9 Anion Gap 11 BUN 13 Creatinine 0.87 Estim Creat Clear Calc 69.98 Est GFR (MDRD) Non-Af 88 BUN/Creatinine Ratio 15.0 Glucose 109 H Calcium 9.5 Total Bilirubin 0.98 AST 25 ALT 27 Alkaline Phosphatase 83 Troponin T High Sens 10 D Troponin T Hi Sens 2 Hr 11 Total Protein 7.3 Albumin 4.2 Globulin 3.1 Albumin/Globulin Ratio 1.4 Urine Color Yellow Urine Clarity Clear Urine pH 7.0 Ur Specific [place] 1.010 Urine Protein Negative Urine Glucose (UA) Normal Urine Ketones Negative Urine Occult Blood Negative Urine Nitrite Negative Urine Bilirubin Negative Urine Urobilinogen Normal Ur Leukocyte Esterase Negative Urine RBC 0 SEEN Urine WBC 0 SEEN Ur Squamous Epith Cells 0 SEEN Urine Bacteria 0 SEEN Urine Mucus RARE Radiography Diagnostic Testing: Clinical Impression(s) from Imaging Studies Brain CT 11/26/24 11:42 IMPRESSION: No acute intracranial pathology. Reading Location: [facility] Chest X-Ray 11/26/24 11:45 IMPRESSION: Examination limited by hypoinflation, as well as patient motion of the lateral views. No acute pneumonic process is appreciated. No evidence of pulmonary edema. No pleural effusion or pneumothorax is seen. The cardiomediastinal silhouette is stable, without evidence of cardiomegaly. Edao-xp-ddgwnxgh degenerative changes of the visualized spine are also seen. Noacute osseous change is noted. Reading Location: [address] Rhythm Strip Rhythm Strip: A-fib Rate: 75 Ectopy: None EKG Initial EKG: Attestation: I personally reviewed and interpreted this EKG as follows: Interpretation: No Acute Injury Pattern and Atrial Fibrillation (60's) Discharge Plan Triage Chief Complaint: Confusion ED Provider: Bernardino Love Dx/Rx/DC Orders Clinical Impression: Atrial fibrillation, persistent, Fatigue, Dysarthria, Transient disorientation Instructions: AFib Dc Prescriptions: No Action atorvastatin 40 mg tablet 40 mg PO QHS metoprolol tartrate 25 mg tablet 25 mg PO BID potassium chloride 10 MEQ tablet 10 meq PO DAILY cholecalciferol (vitamin D3) 2,000 UNIT capsule 2,000 unit PO DAILY Patient Comments: pt states he takes 3 capsules hydrochlorothiazide 25 mg tablet 12.5 mg PO DAILY Eliquis 5 mg tablet 5 mg PO BID 30 Days Qty: 60 0RF omeprazole 20 mg capsule,delayed release(DR/EC) 20 mg PO DAILY Primary Care Provider: [facility] Referrals: [facility] [Primary Care Provider, None] - Keep Yessenia appointment Referral Note: and/or your dag coater Activity Restrictions/Additional Instructions: - Continue taking Eliquis 5 mg twice daily as prescribed; do not reduce the dose. - Keep taking your other regular medications (metoprolol, simvastatin, hydrochlorothiazide, omeprazole, vitamin D) at the same doses. - Your head CT, chest x-ray, EKG (aside from atrial fibrillation), troponin levels, and urinalysis were all normal with no acute findings. - Follow up with your dag coater on the as scheduled. - Return to the emergency department right away if you have recurrent slurred speech, confusion, weakness, dizziness, or any new concerning symptoms. Print Language: Niuean Disposition Disposition: Home, Self Care What to do if you have Problems For any increased pain, shortness of breath, bleeding, nausea or vomiting, chestpain, or any unexpected problems, contact your Primary Care Provider. Call [facility] ([phone]) or report to the closest Emergency Room. Call 911 if necessary. 11/26/24 6867 <Electronically signed by Bernardino Love MD> Cosigner Signature (if applicable): CC: [facility] ~ Signed [facility] Work Phone: 1(263) 665-383410-20-2025 Radiology Diagnostic study note [facility] Imaging Services [address] [place] [id number] Brain/Head without Contrast MR#: [id number] Acct: [id number] Name: BENJAMIN LEOS R Rep #: [id number] : 1945 M 79 From: Karan Dobson MD PCP: [facility] Status: REG ER Study:Brain/Head without Contrast Date of Exa m: 11/26/24 Exam# [id number] Ordering Dr: Tea Love MD EXAM: NONCONTRAST CT SCAN OF THE HEAD CLINICAL HISTORY: Confusion, dysarthria COMPARISON: None TECHNIQUE: Serial axial series through the head were obtained without contrast. 2-D coronaland sagittal reformats were then obtained. FINDINGS: Brain: There is no acute large territorial infarct, intracranial hemorrhage, midline shift or mass effect. There are atherosclerotic vascular calcifications involving the bilateral carotid siphons.The sella and pineal gland regions appear unremarkable. There is no evidence of cerebellar tonsillar herniation. Ventricles: There is no acute hydrocephalus. Basilar cisterns are patent. Paranasal sinuses: Well-aerated Mastoid air cells: Well-aerated. Calvarium: The bony calvarium is intact. Orbits: The bilateral globes are symmetric, without retrobulbar compressive masslesion or hemorrhage. CT/Brain/Head without Contrast IMPRESSION: No acute intracranial pathology. Reading Location: [facility] CC: Dr. Bernardino Love MD; [facility] ~ [facility]: Signed [facility]10-20-2025 Radiology Diagnostic study note [facility] Imaging Services [address] [place] [id number] Chest PA and Lateral MR#: [id number] Acct: [id number] Name: BENJAMIN LEOS R Rep #: [id number] : 1945 M 79 From: Timbo Rodgers MD PCP: [facility] Status: REG ER Study:Chest PA and Lateral Date of Exam: 11/26/24 Exam# [id number] Ordering Dr: Tea Love MD PROCEDURE: CHEST PA AND LATERAL 11/26/2024 REASON FOR EXAM: GEN WEAKNESS TECHNIQUE: Procedure Code: RADCXR Modality: DX Procedure: Three-view CHEST PA AND LATERAL COMPARISON: Carry Out Clerk from the chest CT of 11/21/2024. RAD/Chest PA and Lateral IMPRESSION: Examination limited by hypoinflation, as well as patient motion of the lateral views. No acute pneumonic process is appreciated. No evidence of pulmonary edema. No pleural effusion or pneumothorax is seen. The cardiomediastinal silhouette is stable, without evidence of cardiomegaly. [id number] degenerative changes of the visualized spine are also seen. Noacute osseous changeis noted. Reading Location: [address] CC: Dr. Bernardino Love MD; [facility] ~ [employer]: Signed [facility]10-15-2025 Discharge summary [facility] Medical Records Department [address] [place] [address] Emergency Department Summary 11/21/24 MR#: [id number] Acct: [id number] Name: BENJAMIN LEOS Rep #:[id number] : 1945 79 From: Seth leyva DO PCP: [facility] Status:REG ER Location: ED HPI History of Present Illness Chief Complaint: Back Narrative Narrative: Chief complaint and HPI: 79-year-old male with past medical history of GERD, HLD, HTN, history of prostate cancer presents for evaluation of midthoracic backpain. Patient states this morning he woke up and developed right shoulder pain. He states he felt a fullness in which he took Gas-X. States hethen had a bowel movement without difficulty. Patient states his left shoulder pain however did notimprove and moved to the mid thoracic back [...] on the chart. Reviewed. Physical exam: Gen: A&O x3, NAD Head: Normocephalic, atraumatic Eyes: No [...] intact Psych: Cooperative, appropriate mood and affect [facility] Medical History Elevated coronary artery calcium score GERD (gastroesophageal reflux disease) Mixed hyperlipidemia Essential (primary) hypertension Trigger finger h/o radiation PTSD (post-traumatic stress disorder) Hypertension Hyperlipidemia Arthritis Elevated PSA History of prostate cancer Home Medications ?Medication ?Instructions ?Recorded ?Last Taken ?Type cholecalciferol (vitamin D3) 50 2,000 unit PO DAILY Unknown History mcg (2,000 unit) capsule potassium chloride 10 mEq 10 meq PO DAILY 03/11/16 Unk nown History tablet,extended release(part/cryst) hydrochlorothiazide 25 mg tablet 12.5 mg PO DAILY 09/08 05/27 Unknown History omeprazole 20 mg capsule,delayed 20 mg PO DAILY Unknown History release atorvastatin 40 mg tablet 40 mg PO QHS 07/31/20 Unknow n History metoprolol tartrate 25 mg tablet 25 mg PO BID 07/31/20 Unknown History prazosin 1 mg capsule 2 mg PO QHS 07/31/20 Unknown History simvastatin 5 mg tablet 5 mg PO QDAY 05/25/24 Unknow n History apixaban 5 mg tablet (Eliquis) 5 mg PO BID 30 days #60 tabs 11/21/24 Unknown Rx Allergy/AdvReac Type Severity Reaction Status [...] arrhythmia, ACS, dissection, PE, electrolyte abnormality, thyroid disease, myofascial spasm. NS bolus, Zofran, morphine ordered for symptoms. EKG was personally reviewed interpreted by me, ED physician. Atrial fibrillation with a heart rate of 79. On chart review patient has no history of atrial fibrillation which he and his also confirmed. Rate is controlled. Patient was taken immediately to CT to rule outaortic dissection and PE. I personally reviewed the imaging, no aortic dissection or obvious PE on my exam. Patient prescribed aspirin. CBC with mildleukocytosis 11.4. No anemia. Coagulation panel unremarkable. BMP unremarkable. Magnesium level unremarkable. BNP unremarkable. TSH unremarkable. Sciatica CT of the chest shows mild aortic atherosclerosis with severe coronary artery disease. Cardiac enlargement. No PE. No dissection. Subpleural nodule superior segment right lower lobe measures up to 15 mm[address] Recommendfollow-up CT in 3 months. Reevaluation, patient still endorsing back pain. Worse when he moves. Maybe a myofascial spasm. Will give Valium as a muscle relaxer. Troponin unremarkable x 2. On reevaluation, patient states hisback pain has improved with the Valium. Back pain may be secondary to myofascial spasm however cannot rule out symptomatic atrial fibrillation. Patient and family were updated of all the results. I recommend admission for new onset atrial fibrillation workup. The patient declined admission and statesthat he would like to discharge home and follow-up outpatient with cardiology and his primary care physician. I did personally explain to him as well as his family that choosing to do so may result in permanent bodily harm. I discussed at length that without further evaluation or monitoring there may be for unforeseen circumstances. Atrial fibrillation can increase strokes. Patient isalert and oriented and can make his own decision. He states that he is aware ofthe serious risks as explained but continues to want to discharge home and follow-up outpatient. Given his choice, will prescribe Eliquis. First dose given here. I did reach out to cardiology, Dr. Bucio. Givenpatient is alreadyon metoprolol no changes in medication given rate is controlled. Recommended outpa tient echocardiogram and follow-up in their office. Patient and family updated of all results and the plan. They confirmed understanding. Patient discharged home. Impression: 1. Atrial fibrillation, new diagnosis 2. Thoracic back pain Lab Data Labs: Laboratory Results - last 24 hr 11/21/24 11/21/24 11:00 13:00 WBC 11.4 H RBC 4.94 Hgb 15.4 Hct 44.7 MCV 90.5 MCH 31.2 MCHC 34.5 RDW Std Deviation 44.7 H RDW Coeff of Anuj 13.5 Plt Count 154 MPV 10.6 Immature Gran % (Auto) 0.300 Neut % (Auto) 88.0 H Lymph % (Auto) 4.8 L [place] % (Auto) 6.4 Eos % (Auto) 0.2 Baso % (Auto) 0.3 Absolute Neuts (auto) 10.1 H Absolute Lymphs (auto) 0.55 L Nucleated RBC % 0 PT 14.3 INR 1.1 APTT 27.6 Sodium 139 Potassium 3.9 Chloride 103 Carbon Dioxide 27.1 Anion Gap 8 BUN 12 Creatinine 0.86 Estim Creat Clear Calc 70.79 Est GFR (MDRD) Non-Af 89 BUN/Creatinine Ratio 13.9 Glucose 121 H Calcium 9.3 Magnesium 1.6 Troponin T High Sens 12 Troponin T Hi Sens 2 Hr 10 NT pro BNP II 1123 TSH 1.700 Radiography Diagnostic Testing: Clinical Impression(s) from Imaging Studies Chest CTA 11/21/24 11:25 IMPRESSION: 1. No acute aortic syndrome. Mild aortic atherosclerosis. Severe coronary artery disease. Cardiac enlargement. 2. No evidence of acute or chronic pulmonary embolus. Mild limitation of the distal segmental and subsegmental vessels of the lower lobes. 3. Subpleural nodule superior segment right lower lobe measures up to 15 mm. ACR Fleischner Societyrecommendations (MacMahon, et al. Radiology 2017; 284(1): 228-43) suggest the following: For patients with high or low risk oflung cancer, follow-up chest CT at 3 months. If stable, additional follow-up chest CT at 18 to 24 months. Alternatively (or additionally) PET/CT or tissue sampling could be performed. Reading Location: [facility] Discharge Plan Triage Chief Complaint: Back ED Provider: Seth Lancaster Dx/Rx/DC Orders Clinical Impression: Atrial fibrillation, Thoracic back pain Instructions: Anticoagulants, AFib Dc Prescriptions: New Eliquis 5 mg tablet 5 mg PO BID 30 Days Qty: 60 0RF No Action prazosin 1 mg capsule 2 mg PO QHS atorvastatin 40 mg tablet 40 mg PO QHS metoprolol tartrate 25 mg tablet 25 mg PO BID simvastatin 5 mg tablet 5 mg PO QDAY potassium chloride 10 MEQ tablet 10 meq PO DAILY cholecalciferol (vitamin D3) 2,000 UNIT capsule 2,000 unit PO DAILY hydrochlorothiazide 25 mg tablet 12.5 mg PO DAILY omeprazole 20 mg capsule,delayed release(DR/EC) 20 mg PO DAILY Other Ambulatory Orders: Echo Complete (Routine) Facility: [facility] - Location: [facility] Ordered By: Dr. Seth Lancaster [facility] Care Provider[facility] Referrals: Jasper Bucio MD [Med Staff - Active Staff, Cardiology] - 3-5 Days [facility] [Primary Care Provider, None] - 3-5 Days Activity Restrictions/Additional Instructions: Follow-up with your primary care physician as well as cardiology. Continue yourhome medications. You received your first dose of Eliquis here in the emergencydepartment. Take your next dose this evening. Eliquis is a blood thinner and therefore can cause spontaneous bleeding and increased bruising.If you hit your head you need to be seen in the emergency department to rule out head bleed. Returnback to ED if symptoms change or worsen. Tylenol as needed for back pain. You need to have your outpatient echocardiogram performed. Print Language: Niuean Disposition Disposition: Home, Self Care What to do if you have Problems For any increased pain, shortness of breath, bleeding, nausea or vomiting, chestpain, or any unexpected problems, contact your Primary Care Provider. Call [facility] ([phone]) or report tothe closest Emergency Room. Call 911 if necessary. 11/21/24 1412 Cosigner Signature (if applicable): CC: [facility] ~ Signed [facility]10-15-2025 Discharge summary Author Seth Lancaster [facility] Note Date/Time November 21, 2024 2 :12pm [facility] Medical Records Department [address] [place] [address] Emergency Department Summary 11/21/24 MR#: [id number] Acct: [id number] Name: BENJAMIN LEOS Rep #:[id number] : 1945 79 From: Seth leyva DO PCP: [facility] Hospital Status:REG ER Location: ED HPI History of Present Illness Chief Complaint: Back Narrative Narrative: Chief complaint and HPI: 79-year-old male with past medical history of GERD, HLD, HTN, history of prostate cancer presents for evaluation of midthoracic backpain. Patient states this morning he woke up [...] on the chart. Reviewed. Physical exam: Gen: A&O x3, NAD Head: Normocephalic, atraumatic Eyes: No [...] intact Psych: Cooperative, appropriate mood and affect [facility] Medical History Elevated coronary artery calcium score GERD (gastroesophageal reflux disease) Mixed hyperlipidemia Essential (primary) hypertension Trigger finger h/o radiation PTSD (post-traumatic stress disorder) Hypertension Hyperlipidemia Arthritis Elevated PSA History of prostate cancer Home Medications ?Medication ?Instructions ?Recorded ?Last Taken ?Type cholecalciferol (vitamin D3) 50 2,000 unit PO DAILY Unknown History mcg (2,000 unit) capsule potassium chloride 10 mEq 10 meq PO DAILY 03/11/16 Unk nown History tablet,extended release(part/cryst) hydrochlorothiazide 25 mg tablet 12.5 mg PO DAILY 09/08 05/27 Unknown History omeprazole 20 mg capsule,delayed 20 mg PO DAILY Unknown History release atorvastatin 40 mg tablet 40 mg PO QHS 07/31/20 Unknow n History metoprolol tartrate 25 mg tablet 25 mg PO BID 07/31/20 Unknown History prazosin 1 mg capsule 2 mg PO QHS 07/31/20 Unknown History simvastatin 5 mg tablet 5 mg PO QDAY 05/25/24 Unknow n History apixaban 5 mg tablet (Eliquis) 5 mg PO BID 30 days #60 tabs 11/21/24 Unknown Rx Allergy/AdvReac Type Severity Reaction Status [...] arrhythmia, ACS, dissection, PE, electrolyte abnormality, thyroid disease, myofascial spasm. NS bolus, Zofran, morphine ordered for symptoms. EKG was personally reviewed interpreted by me, ED physician. Atrial fibrillation with a heart rate of 79. On chart review patient has no history of atrial fibrillation which he and his also confirmed. Rate is controlled. Patient was taken immediately to CT to rule outaortic dissection and PE. I personally reviewed the imaging, no aortic dissection or obvious PE on my exam. Patient prescribed aspirin. CBC with mildleukocytosis 11.4. No anemia. Coagulation panel unremarkable. BMP unremarkable. Magnesium level unremarkable. BNP unremarkable. TSH unremarkable. Sciatica CT of the chest shows mild aortic atherosclerosis with severe coronary artery disease. Cardiac enlargement. No PE. No dissection. Subpleural nodule superior segment right lower lobe measures up to 15 mm. Recommend follow-up CT in 3 months. Reevaluation, patient still endorsing back pain. Worse when he moves. May be a myofascial spasm. Will give Valium as a muscle relaxer. Troponin unremarkable x 2. On reevaluation, patient states hisback pain has improved with the Valium. Back pain may be secondary to myofascial spasm however cannot rule out symptomatic atrial fibrillation. Patient and family were updated of all the results. I recommend admission for new onset atrial fibrillation workup. The patient declined admission and statesthat he would like to discharge home and follow-up outpatient with cardiology and his primary care physician. I did personally explain to him as well as his family that choosing to do so may result in permanent bodily harm. I discussed at length that without further evaluation or monitoring there may be for unforeseen circumstances. Atrial fibrillation can increase strokes. Patient isalert and oriented and can make his own decision. He states that he is aware ofthe serious risks as explained but continues to want to discharge home and follow-up outpatient. Given his choice, will prescribe Eliquis. First dose given here. I did reach out to cardiology, Dr. Bucio. Given patient is alreadyon metoprolol no changes in medication given rate is controlled. Recommended outpatient echocardiogram and follow-up in their office. Patient and family updated of all results and the plan. They confirmed understanding. Patient discharged home. Impression: 1. Atrial fibrillation, new diagnosis 2. Thoracic back pain Lab Data Labs: Laboratory Results - last 24 hr 11/21/24 11/21/24 11:00 13:00 WBC 11.4 H RBC 4.94 Hgb 15.4 Hct 44.7 MCV 90.5 MCH 31.2 MCHC 34.5 RDW Std Deviation 44.7 H RDW Coeff of Anuj 13.5 Plt Count 154 MPV 10.6 Immature Gran % (Auto) 0.300 Neut % (Auto) 88.0 H Lymph % (Auto) 4.8 L [place] % (Auto) 6.4 Eos % (Auto) 0.2 Baso % (Auto) 0.3 Absolute Neuts (auto) 10.1 H Absolute Lymphs (auto) 0.55 L Nucleated RBC % 0 PT 14.3 INR 1.1 APTT 27.6 Sodium 139 Potassium 3.9 Chloride 103 Carbon Dioxide 27.1 Anion Gap 8 BUN 12 Creatinine 0.86 Estim Creat Clear Calc 70.79 Est GFR (MDRD) Non-Af 89 BUN/Creatinine Ratio 13.9 Glucose 121 H Calcium 9.3 Magnesium 1.6 Troponin T High Sens 12 Troponin T Hi Sens 2 Hr 10 NT pro BNP II 1123 TSH 1.700 Radiography Diagnostic Testing: Clinical Impression(s) from Imaging Studies Chest CTA 11/21/24 11:25 IMPRESSION: 1. No acute aortic syndrome. Mild [...] tissue sampling could be performed. Reading Location: [id number] Discharge Plan Triage Chief Complaint: Back ED Provider: Seth Lancaster Dx/Rx/DC Orders Clinical Impression: Atrial fibrillation, Thoracic back pain Instructions: Anticoagulants, AFib Dc Prescriptions: New Eliquis 5 mg tablet 5 mg PO BID 30 Days Qty: 60 0RF No Action prazosin 1 mg capsule 2 mg PO QHS atorvastatin 40 mg tablet 40 mg PO QHS metoprolol tartrate 25 mg tablet 25 mg PO BID simvastatin 5 mg tablet 5 mg PO QDAY potassium chloride 10 MEQ tablet 10 meq PO DAILY cholecalciferol (vitamin D3) 2,000 UNIT capsule 2,000 unit PO DAILY hydrochlorothiazide 25 mg tablet 12.5 mg PO DAILY omeprazole 20 mg capsule,delayed release(DR/EC) 20 mg PO DAILY Other Ambulatory Orders: Echo Complete (Routine) Facility: [facility] - Location: [facility] Ordered By: Dr. Seth Lancaster Primary Care Provider[facility] Referrals: Jasper Bucio MD [Med Staff - Active Staff, Cardiology] - 3-5 Days [place], [place] [Primary Care Provider, None] - 3-5 Days Activity Restrictions/Additional Instructions: Follow-up with your primary care physician as well as cardiology. Continue yourhome medications. You received your first dose of Eliquis here in the emergencydepartment. Take your next dose this evening. Eliquis is a blood thinner and therefore can cause spontaneous bleeding and increased bruising. If you hit your head you need to be seen in the emergency department to rule out head bleed. Return back to ED if symptoms change or worsen. Tylenol as needed for back pain. You need to have your outpatient echocardiogram performed. Print Language: Niuean Disposition Disposition: Home, Self Care What to do if you have Problems For any increased pain, shortness of breath, bleeding, nausea or vomiting, chestpain, or any unexpected problems, contact your Primary Care Provider. Call [facility] ([phone]) or report to the closest Emergency Room. Call 911 if necessary. 11/21/24 1412 <Electronically signed by Seth Lancaster DO> Cosigner Signature (if applicable): CC: [facility] ~ Signed [facility] Work Phone: 1([phone]) 610-860910-15-2025 Radiology Diagnostic study note [facility] Imaging Services [address] [place], [place] [address] CTA Chest W/WO Contrast MR#: [id number] Acct: [id number] Name: MARTHA LEOSShyam Mortensen Rep #: [id number] : 1945 M 79 From: Isiah Jacinto MD PCP: CT Hospital Status: REG ER Study:CTA Chest W/WO Contrast Date of Exam: 11/21/24 Exam# [id number] Ordering Dr: Seth Hare DO PROCEDURE: CTA CHEST W/WO CONTRAST 11/21/2024 [...] contrast bolus is diagnostic. There is no evidenceof acute or chronic pulmonary embolus except for the distal segmental and subsegmental vessels as there is respiratory motion artifact there. Hardware: None Lymph nodes: None appear enlarged. Lungs and Airways: Respiratory motion artifact. Subsegmental atelectasis dependently in the lingulaand both lower lobes. Pleura: Subpleural nodule at [...] measures up to 15 mm. ACR Fleischner Societyrecommendations (MacMahon, et al. Radiology 2017; 284(1): 228-43) suggest the following: For patients with high or low risk oflung cancer, follow-up chest CT at 3 months. If stable, additional follow-up chest CT at 18 to 24 months. Alternatively (or additionally) PET/CT or tissue sampling could be performed. Reading Location: [id number] CC: Dr. Seth Lancaster DO; [facility] ~ [employer] Salvager: Signed [facility]03-03-2021 History of Present illness Narrative* MWV LAST COMPLETED 04/09/2020 * Health maintenance: * TDAP-- none found * Influenza-- Due Fall 2020 * Shingrix-- none found (history of quinault outbreak) * Pneumonia series-- none found * Cscope(45-75)-- 06/2018 (sessile colon polyp x 1 + tubular adenoma x 1) * AAA Screen(65-79)-- N/A (never smoker) * PSA-- <0.10 in (brother with hx of prostate cancer) * Anxiety/Depression-- 09/2020 * PHQ-9: 0 * SHARON-7: 0 * Hepatitis C Screen-- none found * Lipid Panel-- ratio: 4.5 in 04/2020 * CT cardiac score-- 2197.62 (high) 05/2020 * Patient presents today for health management of mood, HTN, and HLD/CAD. * Patient presents with no additional complaints today. * Presently on Sertraline 200 mg daily for mood. Patient is taking and tolerating the medications as prescribed. Patient denies suicidal ideation. Patient reports good control on the current medication. Patient denies any symptoms of alicia such as pressured speech, impulsive purchases. Patient is satisfied with their current regimen and wishes to continue. * PHQ-9 is 0 today. * SHARON-7 is 0 today. * On HCTZ 12.5 mg + Metoprolol 25 mg BID daily for blood pressure. Patient denies chest pain, shortness of breath with exertion, palpitations, lower extremity edema, headache, or dizziness. Medicationsare being taken and tolerated well. No side effects are reported. Patient is taking blood pressure outside of office and reports good control. * HLD + CAD, presently on Rosuvastatin 40 mg daily. Was advised to take baby aspirin but states he has not been taking due to things he has read online. * 04/2020 lipid panel elevated with TC/HDL ratio 4.5 * 05/2020 CT cardiac score 2197.62 which is high risk category. * Medications are being taken as directed and tolerated well. Patient denies any facial droop, suddenvision loss, weakness or numbness on one side of body. Patient denies chest pain, shortness of breath with exertion, palpitations, or symptoms of claudication. * 08/12/2020 STRESS TEST: normal, rare PAC/PVC on recovery. * 08/14/2020 ECHO: LV systolic function normal with EF 60 %. Left atrium mildly enlarged. Mild (1+) mitral valve insufficiency. Mild tricuspid valve insufficiency. Mild diffuse aortic valve thickening. Calcified aortic root. RV systolic pressure estimated to be 34 mmHg. Diastolic function is indetermina te. * Last seen 04/2020, at that time patient also reported tremors + confusion + change in balance. Suspected possible Parkinson's, he was referred to neurology for possible evaluation. Saw neuro about 1 month ago, was told he felt it was essential tremor. * Also with history of GERD currently taking omeprazole [...] to have resolved, continues to take omeprazole daily. * Due to complaint of joint pain and joint stiffness we also initiated rheumatologic work-up. * 04/2020 CBC, CMP, EVY, ESR, CRP, CCP, CK, TSH, and protein electrophoresis was normal. * Also noted some fatigue, presently on Prazosin for urinary symptoms. He planned to discontinue as felt this was cause of fatigue. Sees urology in January 2021 [facility] Work Phone: [phone]) 795-863803-03-2021 History of Present illness Narrative* MWV LAST COMPLETED 04/09/2020 * Health maintenance: * TDAP-- none found * Influenza-- Due Fall 2020 * Shingrix-- none found (history of qu[place]ult outbreak) * Pneumonia series-- none found * Cscope(45-75)-- 06/2018 (sessile colon polyp x 1 + tubular adenoma x 1) * AAA Screen(65-79)-- N/A (never smoker) * PSA-- <0.10 in (brother with hx of prostate cancer) * Anxiety/Depression-- 09/2020 * PHQ-9: 0 * SHARON-7: 0 * Hepatitis C Screen-- none found * Lipid Panel-- ratio: 4.5 in 04/2020 * CT cardiac score-- 2197.62 (high) 05/2020 * Patient presents today for health management of mood, HTN, and HLD/CAD. * Patient presents with no additional complaints today. * Presently on Sertraline 200 mg daily for mood. Patient is taking and tolerating the medications as prescribed. Patient denies suicidal ideation. Patient reports good control on the current medication. Patient denies any symptoms of alicia such as pressured speech, impulsive purchases. Patient is satisfied with their current regimen and wishes to continue. * PHQ-9 is 0 today. * SHARON-7 is 0 today. * On HCTZ 12.5 mg + Metoprolol 25 mg BID daily for blood pressure. Patient denies chest pain, shortness of breath with exertion, palpitations, lower extremity edema, headache, or dizziness. Medicationsare being taken and tolerated well. No side effects are reported. Patient is taking blood pressure outside of office and reports good control. * HLD + CAD, presently on Rosuvastatin 40 mg daily. Was advised to take baby aspirin but states he has not been taking due to things he has read online. * 04/2020 lipid panel elevated with TC/HDL ratio 4.5 * 05/2020 CT cardiac score 2197.62 which is high risk category. * Medications are being taken as directed and tolerated well. Patient denies any facial droop, suddenvision loss, weakness or numbness on one side of body. Patient denies chest pain, shortness of breath with exertion, palpitations, or symptoms of claudication. * 08/12/2020 STRESS TEST: normal, rare PAC/PVC on recovery. * 08/14/2020 ECHO: LV systolic function normal with EF 60 %. Left atrium mildly enlarged. Mild (1+) mitral valve insufficiency. Mild tricuspid valve insufficiency. Mild diffuse aortic valve thickening. Calcified aortic root. RV systolic pressure estimated to be 34 mmHg. Diastolic function is indetermina te. * Last seen 04/2020, at that time patient also reported tremors + confusion + change in balance. Suspected possible Parkinson's, he was referred to neurology for possible evaluation. Saw neuro about 1 month ago, was told he felt it was essential tremor. * Also with history of GERD currently taking omeprazole [...] to have resolved, continues to take omeprazole daily. * Due to complaint of joint pain and joint stiffness we also initiated rheumatologic work-up. * 04/2020 CBC, CMP, EVY, ESR, CRP, CCP, CK, TSH, and protein electrophoresis was normal. * Also noted some fatigue, presently on Prazosin for urinary symptoms. He planned to discontinue as felt this was cause of fatigue. Sees urology in January 2021 [facility] Work Phone: Evaluation noteNo assessment information available [facility] Work Phone: Evaluation note* Diagnosis Onset Date Resolution Status Admit Date Atrial fibrillation chronic Octob er 2024 8:53am Coronary artery calcificatio n seen on CAT scan chronic December 06, 025 8:53am HTN, goal below 130/80 chronic Oc tober 2024 8:53am Hyperlipidemia chronic December 062024 8:53am [facility] Work Phone: Hospital Discharge instructionsAdditional Instructions Follow-up with your primary care physician as well as cardiology. Continue your home medications. You received your first dose of Eliquis here in the emergency department. Take your next dose this evening. Eliquis is a blood thinner and therefore can cause spontaneous bleeding and increased bruising. If you hit your head you need to be seen in the emergency department to rule out head bleed. Return back to ED if symptoms change or worsen. Tylenol as needed for back pain. You need to have your outpatient echocardiogram performed.[facility] Work Phone: Hospital Discharge instructionsAdditional Instructions - Continue taking Eliquis 5 mg twice daily as prescribed; do not reduce the dose. - Keep taking your other regular medications (metoprolol, simvastatin, hydrochlorothiazide, omeprazole, vitamin D) at the same doses. - Your head CT, chest x-ray, EKG (aside from atrial fibrillation), troponin levels, and urinalysis were all normal with no acute findings. - Follow up with your dag coater on the as scheduled. - Return to the emergency department right away if you have recurrent slurred speech, confusion, weakness, dizziness, or any new concerning symptoms.[facility] Work Phone: Summary Purpose Family History No [...] Will No February 08 12:13pm Power of Axle Bearing Polisher No February 08 12:13pm Advance Directive Response Recorded Date/ Time Do you have a Healthcare Power of Axle Bearing Polisher? No November 26, 2024 11:16am Do you have a Healthcare Power of Axle Bearing Polisher? Yes November 21, 2024 10:40am Name of Medical Power of Axle Bearing Polisher November 21, 2024 10:40am Advance Directives Yes March 17, 2016 1:51pm Advance Directive Response Recorded Date/ Time Do you have a Healthcare Power of Axle Bearing Polisher? No November 26, 2024 10:16am Do you have a Healthcare Power of Axle Bearing Polisher? Yes November 21, 2024 9:40am Name of Medical Power of Axle Bearing Polisher November 21, 2024 9:40am Advance Directives Yes March 17, 2016 12:51pm Chief Complaint BENJAMIN LEOS is here for a follow-up for mood, HTN, and HLD/CAD.BENJAMIN LEOS is here for a follow-up for mood, HTN, and HLD/CAD. Chief Complaint and Reason for Visit Chief Complaint Admit Date back November 21, 2024 1 0:29am confusion November 26, 2024 1 0:57am Chief Complaint Admit Date back November 21, 2024 1 0:29am confusion November 26, 2024 1 0:57am S/P [facility] 11/21 ([facility]) December 06 8:53am Reason for Visit Admit Date Atrial fibrillation December 06, 2024 8 :53am Coronary artery calcification seen on CA T scan December 06, 2024 8:53am HTN, goal below 130/80 December 06 8:53am Hyperlipidemia December 06, 2024 8 :53am Additional Source Comments (unrecognized sect ion and content) No Status Records FoundNo Status Records FoundNo Status Records FoundNo Status Records Found INFORMATION SOURCE (unrecogn ized section and content) DATE CREATED AUTHOR 07/29/2017 [employer] DATE CREATED AUTHOR AUTHOR'S ORGANIZ ATION 10/09/2020 [facility] DATE CREATED AUTHOR AUTHOR'S ORGANIZ ATION 07/03/2021 [employer] DATE CREATED AUTHOR AUTHOR'S ORGANIZ ATION 12/15/2024 [facility] Goals (unrecognized section and content) Goals may be documented in a n alternate sectionGoals may be documented in an alternate sectionGoals may be documented in an alternate section Care Teams (unrecognized sec tion and content) Team Status: Active Member Role/Relationship Status Dates [facility] Primary care physician Active Team Status: Inactive Member Role/Relationship Status Dates Dr. Seth Lancasetr DO Attending physician Active Start: November 21, 2024 End: November 21, 2024 Dr. Seth Lancaster DO Emergency Department Physician Active Start: November 21, 2024 End: November 21, 2024 [facility] Primary care physician Active Start : November 21, 2024 End: November 21, 2024 Team Status: Inactive Member Role/Relationship Status Dates [facility] Primary care physician Active Start : November 26, 2024 End: November 26, 2024 Dr. Bernardino Love MD Attending physician Active Start: November 26, 2024 End: November 26, 2024 Dr. Bernardino Love MD Emergency Depart ment Physician Active Start: November 26, 2024 End: November 26, 2024 Team Status: Inactive Member Role/Relationship Status Dates [facility] Primary care physician Active Start : December 06, 2024 End: December 06, 2024 [facility] Referring Provider Active Start: Mark pascal 2024 End: December 06, 2024 Dr. Ahmet Wilson DO Attending physician Active Start: December 06, 2024 End: December 06, 2024 FOR RECORDS PERTAINING TO PATIENTS WHO ARE [...] BE BASED ON THE PRIMARY CLINICAL RECORDS. [facility] [employer] [facility]. provides no warranty or guarantee of the accuracy or completeness of information in this document.
== END | disposition home or self-care (01) ==
PROVIDERS: Referring Provider Student in an Organized Health Care Education/Training Program; Visit Provider Student in an Organized Health Care Education/Training Program
DX: I48.19 Other persistent atrial fibrillation (principal); I48.92 Unspecified atrial flutter
CPT/HCPCS: 93306

== ENCOUNTER 2025-01-15 09:39 | Outpatient (CLI) | payer MEDICARE, OTHER, SELFPAY ==
[2025-01-15 12:37] LABS: Hematocrit 44.7 % (40-54); Hemoglobin 14.7 g/dL (13.0-16.5); Mean Corp Hgb Conc 32.9 g/dL (32-36); Mean Corpuscular Volume 91.8 fL (80-94); Mean Platelet Vol. 11.1 fl (6.2-12.0); Platelet Count 167 K/mm3 (150-450); RBC Distribution Width CV 13.4 % (11.6-14.6); RBC Distribution Width SD 45.5 fl (35.1-43.9); Red Blood Count 4.87 M/mm3 (4.6-6.2); White Blood Count 7.7 K/mm3 (4.4-11.0)
[2025-01-15 13:01] LABS: AST(SGOT) 26 U/L (<=37); Alanine Aminotransfer ALT/SGPT 30 U/L (<=46); Albumin, Serum 4.3 g/dL (3.4-4.8); Alkaline Phosphatase 72 U/L (40-129); Anion Gap 9 (5-15); BUN 12 mg/dL (4-19); BUN/Creat Ratio 13.5 RATIO (10-20); Bilirubin, Direct 0.32 mg/dL (0.00-0.30); Calcium,Total 9.3 mg/dL (7.6-11.0); Carbon Dioxide 27.0 mmol/L (21.0-32.0); Chloride 103 mmol/L (98-108); Globulin 2.7 g/dL (2.2-4.2); Glucose 104 mg/dL (70-99); Potassium 4.1 mmol/L (3.3-5.1)
== END 2025-01-15 23:59 | disposition home or self-care (01) ==
LOC: MTLAB 09:54
PROVIDERS: Referring Provider Specialist; Visit Provider Specialist
DX: Z00.00 Encounter for general adult medical examination without abnormal findings (principal); Z79.83 Long term (current) use of bisphosphonates
CPT/HCPCS: 36415; 80053; 82248; 85027